=== PATIENT | male | born 1980 | race Caucasian/White ===

== ENCOUNTER → 2017-11-23 13:35 | Outpatient (CLI) | payer MEDICAID, SELFPAY ==
--- NOTE | 2017-11-23 13:46 | CT_ITS ---
CT abdomen pelvis wo con INDICATION: Vomiting. Right flank pain. Hematuria. 37-year-old ITS.REASON: HEMATURIA ORDERING PHYSICIAN: Naila Sparrow PATIENT AGE: 37 years COMPARISON: CT abdomen 12/25/2016 & to 412 PROCEDURE: Oral Contrast: None IV Contrast: TECHNIQUE: Axial images obtained with sagittal and coronal reformats. All CT scans at the facility use one or more dose reduction, viz: automated exposure control, ma/kV adjustment per patient size (including targeted exams where dose is matched to indication, i.e. head), or iterative reconstruction technique. FINDINGS: Lung bases clear. Heart normal size. Abdomen/pelvis. Lack of oral and IV contrast decreases sensitivity. Liver & spleen unremarkable on these noncontrast images. Gallbladder no gallstones. GB is Contracted with upper mild wall thickening likely due to its contracted state. Kidneys. No urinary tract calculi nor obstruction. GI tract Stomach. Distended Food filled stomach stomach presumably recent meal. Duodenal loop and small bowel appear normal caliber with moderate fluid. No wall thickening. Slight increased gas at the distal small bowel but overall WNL. Terminal ileum appears normal. Appendix difficult to visualize but I believe is seen on axial slice 69, coronal 35. Contains gas and no significant dilatation. There is some stranding in the region of the appendix but this may be due to other features overall no strong evidence of appendicitis. Lyndsay be clinical concern regarding such follow-up CT with oral and IV contrast suggested. There is mild diffuse fat wall thickening at the descending colon associated is contracted state can reflect some mild chronic inflammation nonspecific. Prostate moderate size 4.2 cm. Slightly generous vessels along pelvic sidewall but no significant adenopathy. No retroperitoneal nor mesenteric adenopathy. No free fluid. No free air. Osseous structures appear satisfactory slight narrowing L5/S1 L4/5 disc. ... IMPRESSION...... . No acute findings abdomen pelvis. Moderately distended food filled stomach. Presumably reflects recent meal. Small bowel unremarkable Large bowel.: Moderate stool throughout the right & transverse colon. Mild fatty wall thickening at descending colon & sigmoid. Of this is a nonspecific feature but can be seen with chronic distention mild mild. Lack of distention also contributes to this appearance No appendicitis evident. Note comments in text
== END ==
PROVIDERS: PCP Family Medicine; Visit Provider Nurse Practitioner
DX: R31.9 Hematuria, unspecified (principal)
CPT/HCPCS: 74176

== ENCOUNTER 2017-12-05 08:48 | Outpatient (CLI) | payer MEDICAID, SELFPAY ==
[2017-12-05 09:10] VITALS: BP 120/76; PULSE 62; RESP 18; BMI 23.8
--- NOTE | 2017-12-05 10:12 | PC.NURSE ---
0850: Administered patient's own factor 8
== END 2017-12-05 09:10 | disposition home or self-care (01) ==
LOC: INF 08:49
PROVIDERS: PCP Family Medicine; Visit Provider Nurse Practitioner Family
DX: D66 Hereditary factor VIII deficiency (principal)
CPT/HCPCS: G0463

== ENCOUNTER 2019-10-26 20:28 | Emergency (ER) | payer MEDICARE, MEDICAID, SELFPAY ==
[2019-10-26 21:02] VITALS: BP 115/86; PULSE 63; RESP 14; TEMP 36.7; O2SAT 98; BMI 21.9
--- NOTE | 2019-10-26 21:08 | HMH.EDUTC ---
[facility] [place] Clinical Impression: Sebaceous cyst Disposition: Home, Self-Care Condition on Discharge: Good Instructions: Boil Prescriptions: Sulfamethoxazole/Trimethoprim [Bactrim DS tablet] 1 each PO BID 10 Days #20 tab Prescription Printed Referrals: PCP,Hilary [Primary Care Provider] - Koby Tuttle MD [Staff Physician] - Time of Disposition: 21:14 Medical Decision Making - Jeffery Inquiry Pt receiving controlled substance: No Vital Signs: 10/26/19 21:02 Temperature 98.1 F Temperature Source Oral Pulse Rate [Radial] 63 Respiratory Rate 14 Blood Pressure [Right Arm] 115/86 Blood Pressure Mean [Right Arm] 95 Blood Pressure Source [Right Arm] Automatic Cuff Blood Pressure Position [Right Arm] Sitting 02 Sat by Pulse Oximetry 98 Oxygen Delivery Method Room Air [facility] [place] - General Chief complaint: Urgent Treatment Center Stated complaint: Bump on head Time Seen by Provider: 10/26/19 21:08 Mode of Arrival: Ambulatory Source of Information: Patient Limitations: No Limitations Description of Symptoms (Recalled from Triage Doc. by RN): sore on top of head for 3 days HEENT Symptoms (Recalled from RN notes): No Resp Symptoms (Recalled from RN notes): No Skin Symptoms (Recalled from RN notes): Yes MS Symptoms (Recalled from RN notes): No Functional Status (Recalled from RN notes): wnl - History of Present Illness Provider Complaint: 39 yr old male presents for boil to top of head for three days. pt states girlfriend pressed on it and got some pus out and not it has become sore. - Related Data Previous Rx's Medication Instructions Recorded fluoxetine 20 mg capsule 20 mg PO DAILY #30 cap 09/19/19 trazodone 50 mg tablet 50 mg PO QHS PRN #30 tab 09/19/19 Sulfamethoxazole/Trimethoprim 1 each PO BID 10 Days #20 tab 10/26/19 [Bactrim DS tablet] Allergies Allergy/AdvReac Type Severity Reaction Status Date / Time clarithromycin [From BIAXIN] Allergy Intermediate I-RASH Verified 08/22/19 15:01 aspirin [ASPIRIN] Allergy Unknown Verified 08/22/19 15:01 Penicillins [PENICILLINS] Allergy Unknown Verified 08/22/19 15:01 - Worker's Comp Is this a Worker's Comp case?: No [facility] History - Hepatitis A Screen Drug use history?: No High risk sexual behaviors?: No History of sexually transmitted infection?: No Currently employed?: No Childcare worker?: No Do you have indoor plumbing?: Yes Do you have electricity?: Yes Attestation statement:: This patient has been screened for Hepatitis A risk factors. I have reviewed the patient's past medical history: Yes Medical History: Denies:: Cancer, Diabetes Mellitus Type 1, Diabetes Mellitus Type 2, MRSA Amputation: No - Social History Smoking Status: Never smoker Alcohol Intake: never Alcohol Intake Frequency:: 3 or more drinks per day Substance Use Type: marijuana Occupational Status: other Housing: house Comment: -he will drink 4-6 shots of vodka when he wants to drink. -they have $0.50 shots and he will get a few dollars worth. -he sips on them. -he will get tipsy; not drunk ROS Obtained: Yes Systems reviewed as appropriate & no additional complaints - Constitutional Constitutional: Reports system reviewed and no additional complaints, except as docu, Denies fever(s) - Eyes Eyes: Reports system reviewed and no additional complaints, except as docu, Denies blurry vision - ENT Ears, Nose, Mouth, and Throat: Reports system reviewed and no additional complaints, except as docu, Denies nasal congestion, Denies sore throat - Cardiovascular Cardiovascular: Reports system reviewed and no additional complaints, except as docu, Denies chest pain - Respiratory Respiratory: Yes system reviewed and no additional complaints, except as docu, No change in phlegm color - Gastrointestinal Gastrointestingal: Reports: system reviewed and no additional complaints, except as docu. Denies: nausea, vomiting - Genitourinary Male Genitourinary: Reports
[2019-10-26 21:30] VITALS: BP 115/86; PULSE 63; RESP 14; TEMP 36.7; O2SAT 98
--- NOTE | 2019-10-29 15:38 | PC.NURSE ---
NOTIFICATION FROM LAB: WOUND CULTURE MRSA+. PATIENT GIVEN BACTRIM WHICH MRSA IS SUSCEPTIBLE TO PER MICRO REPORT. IRAIDA HERNANDEZ APRN NOTIFIED OF RESULT
== END 2019-10-26 21:32 | disposition home or self-care (01) ==
PROVIDERS: Emergency Provider Nurse Practitioner Family
DX: L72.3 Sebaceous cyst (principal); Z88.0 Allergy status to penicillin
CPT/HCPCS: G0463; 87070; 87077; 87186; 87205; 99201

== ENCOUNTER 2019-12-24 11:24 | Emergency (ER) | payer MEDICARE, MEDICAID, SELFPAY ==
[2019-12-24 11:42] VITALS: BP 128/80; PULSE 72; RESP 20; TEMP 36.8; O2SAT 99; BMI 22.2
--- NOTE | 2019-12-24 11:50 | HMH.EDUTC ---
[facility] [place] Disposition Clinical Impression: Hemophilia Low back pain Qualifiers: Chronicity: acute Back pain laterality: left Sciatica presence: with sciatica Sciatica laterality: sciatica of left side Qualified Code(s): M54.42 - Lumbago with sciatica, left side Disposition: Home, Self-Care Condition on Discharge: Good Additional Instructions: Go home and rest. It would be best if you rested tomorrow too. No heavy lifting. No twisting. Take the oral medications as directed. The muscle relaxer (robaxin) will make you drowsy, so don't drive or operate heavy machinery after taking it. Follow up with your regular doctor. GO TO THE ER FOR ANY WORSENING SYMPTOMS OR CONCERN, ESPECIALLY BOWEL OR BLADDER ISSUES, SADDLE AREA NUMBNESS, FEVER, ETC I discussed the need for him to follow up closely due to his history of hemophilia. He agrees. Prescriptions: predniSONE [Prednisone 20mg Tab] 20 mg PO BID 4 Days #8 tab Transmission Status: Received by [facility] Methocarbamol [Robaxin 500mg Tab] 500 mg PO BIDP PRN #30 tab PRN Reason: Muscle Spasm Transmission Status: Received by [facility] Referrals: Papito Baez MD [Primary Care Provider] - Time of Disposition: 12:53 Medical Decision Making - Medical Records Medical records reviewed: No: I reviewed the patient's medical records. - Jeffery Inquiry Pt receiving controlled substance: No Vital Signs: 12/24/19 11:42 12/24/19 12:57 Temperature 98.2 F 98.2 F Temperature Source Oral Pulse Rate 72 Pulse Rate [Right Brachial] 72 Respiratory Rate 20 20 Blood Pressure 128/80 Blood Pressure [Right Arm] 128/80 Blood Pressure Mean [Right Arm] 96 Blood Pressure Source [Right Arm] Automatic Cuff Blood Pressure Position [Right Arm] Sitting 02 Sat by Pulse Oximetry 99 Oxygen Delivery Method Room Air - Lab Data Lab results reviewed: Yes: I reviewed the patient's lab results. Lab Results 12/24/19 11:56: Urine Color Yellow, Urine Appearance Clear, Urine pH 5.5, Ur Specific Newton 1.025, Urine Protein Negative, Urine Glucose (UA) Negative, Urine Ketones Negative, Urine Blood 1+, Urine Nitrate Negative, Urine Bilirubin Negative, Urine Urobilinogen 0.2, Ur Leukocyte Esterase Negative Medical Decision Narrative: i discussed this case with the ER physician. [facility] [place] HPI - General Stated complaint: lower back pain Time Seen by Provider: 12/24/19 11:50 Mode of Arrival: Ambulatory Source of Information: Patient Limitations: No Limitations Description of Symptoms (Recalled from Triage Doc. by RN): PATIENT C/O RIGHT LOWER BACK PAIN SINCE MONDAY. NO KNOWN INJURY HEENT Symptoms (Recalled from RN notes): No Resp Symptoms (Recalled from RN notes): No Skin Symptoms (Recalled from RN notes): No MS Symptoms (Recalled from RN notes): Yes Functional Status (Recalled from RN notes): WNL - History of Present Illness Provider Complaint: He is here with a complaint of low back pain. He states that it began on Monday (3 days ago). He has been taking tylenol for it with not much relief. He has a history of hemophilia. He denies any known injury. - Related Data Previous Rx's Medication Instructions Recorded fluoxetine 20 mg capsule 20 mg PO DAILY #30 cap 12/06/19 trazodone 100 mg tablet 100 mg PO QHS #30 tab 12/06/19 Methocarbamol [Robaxin 500mg Tab] 500 mg PO BIDP PRN #30 tab 12/24/19 predniSONE [Prednisone 20mg 20 mg PO BID 4 Days #8 tab 12/24/19 Tab] Allergies Allergy/AdvReac Type Severity Reaction Status Date / Time clarithromycin [From BIAXIN] Allergy Intermediate I-RASH Verified 11/01/19 13:06 aspirin [ASPIRIN] Allergy Unknown Verified 11/01/19 13:06 Penicillins [PENICILLINS] Allergy Unknown Verified 11/01/19 13:06 - Worker's Comp Is this a Worker's Comp case?: No [facility] History - Hepatitis A Screen Drug use history?: No High risk sexual behaviors?: No History of sexually transmitted infection?: No Mao
[2019-12-24 12:14] LABS: Apearance,Urine Clear (Clear); Bilirubin,Urine Negative (Negative); Blood, Urine 1+ (Negative); Color,Urine Yellow (Yellow); Glucose,Urine (UA) Negative (Negative); Ketones,Urine Negative (Negative); PH,Urine 5.5 (5.0-8.5); Protein,Urine Negative (Negative); Specific Gravity, Urine 1.025 (1.005-1.030); UTC Leukocyte Esterase,Urine Negative (Negative); UTC Nitrate,Urine Negative (Negative); Urobilinogen,Urine 0.2 EU/dl (0.2)
[2019-12-24 12:57] VITALS: BP 128/80; PULSE 72; RESP 20; TEMP 36.8; O2SAT 99
== END 2019-12-24 13:00 | disposition home or self-care (01) ==
PROVIDERS: Emergency Provider Nurse Practitioner Family; PCP Family Medicine
DX: M54.42 Lumbago with sciatica, left side (principal); D66 Hereditary factor VIII deficiency; F41.8 Other specified anxiety disorders; J45.909 Unspecified asthma, uncomplicated; Z87.442 Personal history of urinary calculi; Z88.0 Allergy status to penicillin
CPT/HCPCS: 81003; 99201

== ENCOUNTER 2020-07-20 09:47 | Emergency (ER) | payer MEDICARE, MEDICAID, SELFPAY ==
[2020-07-20 10:01] VITALS: BP 127/87; PULSE 61; RESP 14; TEMP 36.4; O2SAT 97; BMI 24.5
--- NOTE | 2020-07-20 10:31 | HMH.EDUTC ---
[facility] [place] Clinical Impression: Otitis media Qualifiers: Otitis media type: suppurative Chronicity: acute Laterality: right Recurrence: non-recurrent Spontaneous tympanic membrane rupture: without spontaneous rupture Qualified Code(s): H66.001 - Acute suppurative otitis media without spontaneous rupture of ear drum, right ear Sinusitis Qualifiers: Sinusitis location: unspecified location Chronicity: acute Recurrence: non-recurrent Qualified Code(s): J01.90 - Acute sinusitis, unspecified Disposition: Home, Self-Care Condition on Discharge: Good Instructions: Middle Ear Infection, DI for Sinusitis Additional Instructions: Drink plenty of fluids. Take tylenol or ibuprofen for pain or fever. Take the medications as directed. Follow up with your regular doctor. GO TO THE ER FOR ANY WORSENING SYMPTOMS Prescriptions: predniSONE [Deltasone 10mg tablet] 10 mg PO BID 3 Days #6 tab Transmission Status: Received by [email or web address] Cefdinir [Omnicef 300mg Capsule] 300 mg PO BID #20 cap Transmission Status: Received by [email or web address] Referrals: Papito Baez MD [Primary Care Provider] - Time of Disposition: 10:37 Medical Decision Making - Medical Records Medical records reviewed: No: I reviewed the patient's medical records. - Jeffery Inquiry Pt receiving controlled substance: No Vital Signs: 07/20/20 10:01 07/20/20 10:40 Temperature 97.6 F 98 F Temperature Source Oral Pulse Rate 65 Pulse Rate [Right] 61 Respiratory Rate 14 16 Blood Pressure 130/81 Blood Pressure [Right Arm] 127/87 Blood Pressure Mean [Right Arm] 100 Blood Pressure Source [Right Arm] Automatic Cuff Blood Pressure Position [Right Arm] Sitting 02 Sat by Pulse Oximetry 97 [facility] [place] - General Stated complaint: rt eye and ear pain Time Seen by Provider: 07/20/20 10:31 Mode of Arrival: Ambulatory Source of Information: Patient Limitations: No Limitations Description of Symptoms (Recalled from Triage Doc. by RN): pt started out having pressure behind his R eye a few days ago, now he has pressure in his R ear too. HEENT Symptoms (Recalled from RN notes): Yes (pressure behind R eye and ear) Resp Symptoms (Recalled from RN notes): No Skin Symptoms (Recalled from RN notes): No MS Symptoms (Recalled from RN notes): No Functional Status (Recalled from RN notes): na - History of Present Illness Provider Complaint: He states that he has had right ear pain and right sided facial pressure for alicia past 2 days. He believes he is getting a sinus and ear infection. - Related Data Previous Rx's Medication Instructions Recorded Methocarbamol [Robaxin 500mg Tab] 500 mg PO BIDP PRN #30 tab 12/24/19 predniSONE [Prednisone 20mg 20 mg PO BID 4 Days #8 tab 12/24/19 Tab] Cefdinir [Omnicef 300mg Capsule] 300 mg PO BID #20 cap 07/20/20 fluoxetine 20 mg capsule 20 mg PO DAILY #90 cap 07/20/20 predniSONE [Deltasone 10mg tablet] 10 mg PO BID 3 Days #6 tab 07/20/20 trazodone 100 mg tablet 100 mg PO QHS #90 tab 07/20/20 Allergies Allergy/AdvReac Type Severity Reaction Status Date / Time clarithromycin [From BIAXIN] Allergy Intermediate I-RASH Verified 07/20/20 11:01 aspirin [ASPIRIN] Allergy Unknown Verified 07/20/20 11:01 Penicillins [PENICILLINS] Allergy Unknown Verified 07/20/20 11:01 - Worker's Comp Is this a Worker's Comp case?: No [facility] History - Hepatitis A Screen Drug use history?: No High risk sexual behaviors?: No History of sexually transmitted infection?: No Currently employed?: No Childcare worker?: No Do you have indoor plumbing?: Yes Do you have electricity?: Yes Attestation statement:: This patient has been screened for Hepatitis A risk factors. I have reviewed the patient's past medical history: Yes Medical History: Reports:: Anxiety, Asthma, Depression, Kidney Stones Denies:: Cancer, Diabetes Mellitus Type 1, Diabetes Mellitus Type 2, MRSA Other Medical History: Reports:
[2020-07-20 10:40] VITALS: BP 130/81; PULSE 65; RESP 16; TEMP 36.6
== END 2020-07-20 10:43 | disposition home or self-care (01) ==
PROVIDERS: Emergency Provider Nurse Practitioner Family; PCP Family Medicine
DX: H66.001 Acute suppurative otitis media without spontaneous rupture of ear drum, right ear (principal); J01.90 Acute sinusitis, unspecified; F41.8 Other specified anxiety disorders; Z87.442 Personal history of urinary calculi
CPT/HCPCS: G0463; 99202

== ENCOUNTER 2020-08-15 15:22 | Emergency (ER) | payer MEDICARE, MEDICAID, SELFPAY ==
[2020-08-15 15:25] VITALS: BP 123/79; PULSE 71; RESP 19; TEMP 36.8; O2SAT 98; BMI 24.5
--- NOTE | 2020-08-15 15:41 | HMH.EDUTC ---
[facility] [place] Dis[place] Clinical Impression: Nail fungal infection Disposition: Home, Self-Care Condition on Discharge: Good Instructions: Onychomycosis Additional Instructions: follow up with podiatry keep feet dry Prescriptions: terbinafine HCL [Lamisil 1% cream 12gm tube] 12 gm TP BID 14 Days #1 tube Prescription Printed Referrals: Provider,Referral, [Primary Care Provider] - Medical Decision Making - Jeffery Inquiry Pt receiving controlled substance: No [facility] [place] HPI - General Chief complaint: Urgent Treatment Center Stated complaint: toenail fungus Time Seen by Provider: 08/15/20 15:41 Mode of Arrival: Ambulatory Source of Information: Patient Limitations: No Limitations - History of Present Illness Provider Complaint: 39 yr old male presnts for toe nail funus to left great toefor a few weeks. - Related Data Previous Rx's Medication Instructions Recorded terbinafine HCL [Lamisil 1% cream 12 gm TP BID 14 Days #1 tube 08/15/20 12gm tube] Allergies Allergy/AdvReac Type Severity Reaction Status Date / Time clarithromycin [From BIAXIN] Allergy Intermediate I-RASH Verified 07/20/20 11:01 aspirin [ASPIRIN] Allergy Unknown Verified 07/20/20 11:01 Penicillins [PENICILLINS] Allergy Unknown Verified 07/20/20 11:01 [facility] History - Hepatitis A Screen Attestation statement:: This patient has been screened for Hepatitis A risk factors. I have reviewed the patient's past medical history: Yes Medical History: Reports:: Anxiety, Asthma, Depression, Kidney Stones Denies:: Cancer, Diabetes Mellitus Type 1, Diabetes Mellitus Type 2, MRSA Other Medical History: Reports: Arthritis, Sinus Problems Other Surgeries: Yes: Other (B elbows and Ankles - joints cleaned) Amputation: No - Social History Smoking Status: Never smoker Alcohol Intake: never Alcohol Intake Frequency:: 3 or more drinks per day Substance Use Type: marijuana Occupational Status: other Housing: house Comment: -he will drink 4-6 shots of vodka when he wants to drink. -they have $0.50 shots and he will get a few dollars worth. -he sips on them. -he will get tipsy; not drunk - Psychiatric History Pschychiatric History:: Reports:: Anxiety, Depression Family Hx:: Asthma, Cancer, Bleeding Disorder, Hypertension ROS Obtained: Yes Systems reviewed as appropriate & no additional complaints - Constitutional Constitutional: Reports system reviewed and no additional complaints, except as docu, Denies body ache - Eyes Eyes: Reports system reviewed and no additional complaints, except as docu, Denies blurry vision - ENT Ears, Nose, Mouth, and Throat: Reports system reviewed and no additional complaints, except as docu, Denies sore throat - Cardiovascular Cardiovascular: Reports system reviewed and no additional complaints, except as docu, Denies chest pain - Respiratory Respiratory: Reports system reviewed and no additional complaints, except as docu, Denies cough - Gastrointestinal Gastrointestingal: Reports: system reviewed and no additional complaints, except as docu. Denies: belching - Genitourinary Male Genitourinary: Reports system reviewed and no additional complaints, except as docu - Musculoskeletal Musculoskeletal: Reports system reviewed and no additional complaints, except as docu, Denies joint pain - Integumentary/Breasts Skin/Breast: Reports system reviewed and no additional complaints, except as docu, Reports as per HPI, Reports nail changes, Denies rash - Neurologic Neurologic: Reports system reviewed and no additional complaints, except as docu, Denies dizziness - Endocrine Endocrine: Reports system reviewed and no additional complaints, except as docu, Denies fatigue - Hematologic/Lymphatic Henatologic/Lymphatic: Reports system reviewed and no additional complaints, except as docu, Denies easy bruising - Allergic/Immunologic Allergic/Immunologic: Reports system reviewed and no additional complaints, except as d
[2020-08-15 15:47] VITALS: BP 123/79; PULSE 71; RESP 19; TEMP 36.8; O2SAT 98
== END 2020-08-15 15:53 | disposition home or self-care (01) ==
PROVIDERS: Emergency Provider Nurse Practitioner Family
DX: B35.1 Tinea unguium (principal); Z88.0 Allergy status to penicillin
CPT/HCPCS: G0463; 99202

== ENCOUNTER → 2020-09-14 15:25 | Outpatient (CLI) | payer MEDICARE, MEDICAID, SELFPAY ==
--- NOTE | 2020-09-14 15:27 | CA_ITS ---
APPROVED REPORT EXAM: Comprehensive 2D, Doppler, and color-flow Echocardiogram Front Office Specialist: Madison Wolfe, RCS, RVS Ht: 6 ft 3 in Wt: 197lbs BSA: 2.18 BP: 143/85 mmHg Indications: Family Hx- connective tissue disorder unspecified, Cp, SOB, Long spindally habitus 2D Dimensions Aortic Root 3.77 cm LA Volume 33.80 mL Left Atrium 2.65 cm LA Volume Index 15.50 mL/m2 (M/F) 16-34 LVOT 1.95 cm (M/F) 1.5-2.5 Ascending Aorta 2.94 cm M-Mode Dimensions RVDd 2.06 cm (0.9-2.6) LA Diam 3.46 cm (1.9-4.0) LVDd 4.82 cm (3.5-5.7) Ao Diam 3.97 cm (2.0-3.7) LVDs 2.93 cm (3.5-5.7) IVSd 0.96 cm (0.6-1.1) PWd 0.90 cm (0.6-1.1) EF (Teich) 69.60% EPSs 0.54 cm FS 39.20% EDV (Teich) 108.60 mL TAPSE 2.51 (<1.7) ESV (Teich) 33.00 mL LV Diastology E Decel Time 237.00 (160-240 msec) E/A Ratio 1.44 MED E' 9.70 (< 7 cm/sec) MED A' 7.30 cm/s E'/MED E' Ratio 7.96 (>14) LAT E' 13.50 (<10 cm/sec) LAT A' 11.00 cm/s E/LAT E' Ratio 5.72 (>14) Aortic Valve AoV Peak Sudeep. 131.00 (50-130 cm/s) AI PHT 456.00 ms AO Peak GR. 6.80 mmHg AO Mean GR. 3.40 (<5 mmHg) AO VTI 24.76 (18-25 cm) Mitral Valve MV A Velocity 54.00 (40-130 cm/s) E/A Ratio 1.44 MV Decel. Time 237.00 (160-240 ms) Pulmonary Valve PV Peak Velocity 91.00 (50-150 cm/s) Tricuspid Valve TR P. Velocity 212.00 cm/s RAP Estimate 10.00 mmHg RVSP 28.00 mmHg Left Ventricle Left atrium is normal size, left ventricle is normal size, there is no concentric left ventricular hypertrophy, visually estimated ejection fraction 55% with no regional wall motion abnormality, diastolic parameters are within normal range. Right Ventricle Right atrium and right ventricle are normal size and contractility. Aortic Valve Aortic valve is minimally thickened and fibrosed, there is no aortic stenosis, there is mild aortic insufficiency. Mitral Valve Mitral valve grossly normal, there is trace mitral regurgitation. Tricuspid Valve Tricuspid grossly normal, there is trace tricuspid regurgitation, tricuspid regurgitation jet velocity is inadequate for calculation of the right ventricular systolic pressure. Pulmonic Valve Pulmonic valve is poorly visualized Great Vessels Aortic root is mildly enlarged measuring 3.8 cm, a CT scan of the chest with contrast is recommended to exclude presence of thoracic aneurysm. Pericardium No significant pericardial effusion noted. Conclusion 1. Normal left ventricular size, preserved left ventricular systolic function, visually estimated ejection fraction 55% with no regional wall motion abnormality, diastolic parameters are within normal range. 2. Mildly enlarged aortic root measuring 3.8 cm, aortic valve is minimally thickened and fibrosed, there is mild aortic insufficiency, a CT scan of the chest with contrast is recommended to exclude presence of thoracic aneurysm. 3. No significant pericardial effusion noted. Electronically signed by : Javier Conteh, 09/14/2020 21:47:21
== END ==
PROVIDERS: PCP Family Medicine; Visit Provider Family Medicine
DX: Z82.69 Family history of other diseases of the musculoskeletal system and connective tissue (principal); R07.9 Chest pain, unspecified; R06.02 Shortness of breath
CPT/HCPCS: 93306

== ENCOUNTER → 2020-09-30 13:36 | Outpatient (CLI) | payer MEDICARE, MEDICAID, SELFPAY ==
--- NOTE | 2020-09-30 13:39 | CT_ITS ---
PROCEDURE: CT CHEST W CON CLINCAL INDICATION: AORTIC ROOT ENLARGEMENT Seen on echo COMPARISON: CT CTAC CTA-CHEST from 10/13/2016 TECHNIQUE: IV Contrast: 75ml Isovue 370 Axial images obtained with sagittal and coronal reformats. All CT scans at the facility use one or more dose reduction, viz: automated exposure control, ma/kV adjustment per patient size (including targeted exams where dose is matched to indication, i.e. head), or iterative reconstruction technique. FINDINGS: HEART AND MEDIASTINAL STRUCTURES: No mediastinal or hilar mass. The supravalvular portion of the aorta measures 3.5 cm in diameter. The proximal ascending aorta is 3.4 cm. There is no evidence of aortic dissection. No central pulmonary embolus apparent. No coronary artery calcification identified. LUNGS AND PLEURAL SPACES: Unremarkable. BONY STRUCTURES: No acute bony abnormalities apparent. UPPER ABDOMEN: Unremarkable. ADDITIONAL FINDINGS: No other significant abnormalities. IMPRESSION: Negative CT chest with contrast. No evidence of aortic aneurysm. Dictated by: Kehinde Mead MD 10/01/2020 07:21 Kehinde Mead MD in [place] 10/01/2020 07:21
== END ==
PROVIDERS: PCP Family Medicine; Visit Provider Family Medicine
DX: I77.89 Other specified disorders of arteries and arterioles (principal)
CPT/HCPCS: 71260; Q9967

== ENCOUNTER 2020-10-16 11:00 | Outpatient (RCR) | payer MEDICARE, MEDICAID, SELFPAY | END 2020-10-16 11:05 | disposition home or self-care (01) | LOC: PT 11:00 | PROVIDERS: PCP Family Medicine; Visit Provider Nurse Practitioner Family | DX: M25.572 Pain in left ankle and joints of left foot (principal); D66 Hereditary factor VIII deficiency | CPT/HCPCS: 97110; 97112; 97140; 97163; 97164; 97530 ==

== ENCOUNTER 2020-10-20 06:15 | Emergency (ER) | payer MEDICARE, MEDICAID, SELFPAY ==
[2020-10-20 06:16] VITALS: BP 132/80; PULSE 64; RESP 16; TEMP 36.6; O2SAT 99; BMI 23.8
--- NOTE | 2020-10-20 06:33 | HMH.EDBACK ---
ED Disposition Clinical Impression: Low back strain Qualifiers: Encounter type: initial encounter Qualified Code(s): S39.012A - Strain of muscle, fascia and tendon of lower back, initial encounter Disposition: Home, Self-Care Condition on Discharge: Good Instructions: DI for Low Back Pain Additional Instructions: Recommend regular Tylenol and ibuprofen/aleve for pain alternating ice and heat therapy and consider using lidocaine patches. Recommend the Flexeril for back spasms. Return to the ED for any new or worsening symptoms including inability to walk, difficulty urinating, weakness in your legs. Prescriptions: Cyclobenzaprine HCl [Flexeril 10mg tablet] 10 mg PO Q8HP PRN 5 Days #15 tab PRN Reason: Muscle Spasm Transmission Status: Received by [facility] Referrals: Papito Baez MD [Primary Care Provider] - - Critical Care Critical Care Time: No Attestation: On 10/20/20, the high probability of a clinically significant, sudden or life threatening deterioration of the following system(s) required my full and direct attention, intervention and personal management. The time I documented below is in addition to time spent performing reported procedures but includes the following listed in this critical care notation. Medical Decision Making - Medical Records Medical records reviewed: Yes: I reviewed the patient's medical records. - Jeffery Inquiry Pt receiving controlled substance: No Vital Signs: 10/20/20 06:16 10/20/20 06:34 Temperature 97.9 F 97.9 F Temperature Source Oral Pulse Rate 64 Pulse Rate [Right] 64 Respiratory Rate 16 16 Blood Pressure 132/80 Blood Pressure [Right Arm] 132/80 Blood Pressure Mean [Right Arm] 97 02 Sat by Pulse Oximetry 99 - Lab Data Lab Results 10/20/20 06:27: Urine Color Dk yellow, Urine Appearance Clear, Urine pH 5.0, Ur Specific [place] >= 1.030, Urine Protein Negative, Urine Glucose (UA) Negative, Urine Ketones Negative, Urine Blood 1+, Urine Nitrate Negative, Urine Bilirubin Negative, Urine Urobilinogen 0.2, Ur Leukocyte Esterase Negative, Urine RBC Occasional, Urine WBC Occasional, Ur Squamous Epith Cells Occasional, Urine Bacteria None Orders (Tests/Meds): ED MEDICATIONS Discontinued Medications Generic Name Dose Route Start Last Admin Trade Name Freq PRN Reason Stop Dose Admin Ketorolac Tromethamine 30 mg 10/20/20 06:30 10/20/20 06:33 Ketorolac 30mg/Ml Vial IM 10/20/20 06:31 30 mg ONCE ONE Administration Medical Decision Narrative: 40-year-old male who presents with back spasms and lateral back pain that is an acute exacerbation of his chronic lower back pain. Patient has never had surgery on his back, has no midline tenderness, has no focal neurologic findings or symptoms concerning for compressive etiology. Patient was given 30 mg IM Toradol and will be given a prescription for Flexeril and discharged with conservative management instructions in good condition. Back Pain HPI - General Chief Complaint: Back Pain/Injury Stated Complaint: back pain Time Seen by Provider: 10/20/20 06:33 Mode of Arrival: Ambulatory Limitations: No Limitations Description of Symptoms (Recalled from ER Triage Doc. by RN): pt c/o lower back pain that radiates to legs - History of Present Illness HPI Narrative: 40-year-old male who presents with acute exacerbation of his chronic back pain having bilateral pain over the lateral aspect of his back no midline pain and occasionally is having shooting pain down his legs. Denies numbness or weakness to extremity. Denies saddle anesthesia and urinary retention or incontinence. No recent trauma. Patient is used icy hot with minimal relief. - Related Data Previous Rx's Medication Instructions Recorded terbinafine HCL [Lamisil 1% cream 12 gm TP BID 14 Days #1 tube 08/15/20 12gm tube] Cyclobenzaprine HCl [Flexeril 10mg 10 mg PO Q8HP PRN 5 Days #15 tab 10/20/20 tablet]
[2020-10-20 06:34] VITALS: BP 132/80; PULSE 64; RESP 16; TEMP 36.6; O2SAT 99
[2020-10-20 06:50] LABS: Microscopic, Urine URINE MICROSCOPIC (MICROSCOPIC)
[2020-10-20 06:52] LABS: Appearance,Urine CLEAR (Clear); Bilirubin,Urine Negative (Negative); Blood, Urine 1+ (Negative); Color,Urine DK YELLOW (Yellow); Glucose,Urine (UA) Negative (Negative); Ketones,Urine Negative (Negative); Leukocyte Esterase,Urine Negative (Negative); Nitrate,Urine Negative (Negative); Protein,Urine Negative (Negative); Specific Gravity, Urine >= 1.030 (1.005-1.030); Urobilinogen,Urine 0.2 EU/dl (0.2)
[2020-10-20 07:02] LABS: Squamous Epithelial Cell,Urine Occasional #/hpf (0-5); WBC,Urine Occasional #/hpf (0-3)
[2020-10-20 07:03] LABS: RBC,Urine Occasional #/hpf (0-3)
== END 2020-10-20 06:50 | disposition home or self-care (01) ==
PROVIDERS: Emergency Provider Student in an Organized Health Care Education/Training Program; PCP Family Medicine
DX: S39.012A Strain of muscle, fascia and tendon of lower back, initial encounter (principal); F41.8 Other specified anxiety disorders; J45.909 Unspecified asthma, uncomplicated; Z87.442 Personal history of urinary calculi
CPT/HCPCS: 81001; 96372; 99282

== ENCOUNTER 2021-03-30 10:00 | Emergency (ER) | payer MEDICARE, MEDICAID, SELFPAY ==
[2021-03-30 11:43] VITALS: BP 155/92; PULSE 70; RESP 19; TEMP 36.9; O2SAT 99; BMI 24.9
--- NOTE | 2021-03-30 11:47 | HMH.EDUTC ---
[facility] [place] Disposition Clinical Impression: Strep throat Disposition: Home, Self-Care Condition on Discharge: Good Instructions: Strep Throat, DI for Strep Throat, Cefdinir Additional Instructions: *Monitor Temp, Over the counter Motrin or Tylenol as directed/as needed Tylenol every 4 hours and Motrin every 6 hours (as long as your family doctor has told you that you can take it) for fever or pain. and straight to ER if unable to lower temp less than 101.0 after medication given *Warm salt water gargles may help to soothe the throat *Throat Lozenges *Warm fluids like tea with honey may help to soothe the throat *Sleep elevated If you did not take Penicillin shot or was unable to, start taking antibiotic immediately and make sure that you take it for the FULL length of time although you should start to feel better in 24-48 hours *change toothbrush and toothpaste 24-48 hours after starting to take antibiotics so you do not reinfect yourself Monitor Temp. Tylenol and/or Ibuprofen as needed. ER if fever is no less than 101 despite alternating Tylenol and Ibuprofen * Encourage fluids, water, Gatorade, powerade, pedialyte if infant/toddler/or child *Cold fluids, popsicles and ice cream may feel good on his throat Humidifier/Vaporizer Follow up IMMEDIATELY for new or worsening symptoms or no Noticeable improvement over the next 48-72 hours. 911 for difficulty breathing or swallowing Prescriptions: Cefdinir [Omnicef 300mg Capsule] 300 mg PO BID #20 cap Transmission Status: Pending to [facility] Referrals: Papito Baez MD [Primary Care Provider] - As needed Time of Disposition: 11:57 Medical Decision Making - Jeffery Inquiry Pt receiving controlled substance: No Jeffery was queried for this patient: No Vital Signs: 03/30/21 11:43 Temperature 98.5 F Temperature Source Oral Pulse Rate [Right Radial] 70 Respiratory Rate 19 Blood Pressure [Right Arm] 155/92 H Blood Pressure Mean [Right Arm] 113 Blood Pressure Source [Right Arm] Automatic Cuff Blood Pressure Position [Right Arm] Sitting 02 Sat by Pulse Oximetry 99 Oxygen Delivery Method Room Air - Lab Data Lab results reviewed: Yes: I reviewed the patient's lab results. Lab Results 03/30/21 11:30: Strep Scn Rapid Clinic Positive A Medical Decision Narrative: patient state that he has taken Cefdinir in the past without complications or reactions [facility] [place] HPI - General Stated complaint: fever, SIDDIQUI Time Seen by Provider: 03/30/21 11:47 Mode of Arrival: Ambulatory Source of Information: Patient Limitations: No Limitations Description of Symptoms (Recalled from Triage Doc. by RN): C/O SIDDIQUI and low grade fever HEENT Symptoms (Recalled from RN notes): Yes (SIDDIQUI) Resp Symptoms (Recalled from RN notes): No Skin Symptoms (Recalled from RN notes): No MS Symptoms (Recalled from RN notes): No Functional Status (Recalled from RN notes): n/a - History of Present Illness Provider Complaint: Patient state that he had some vomiting yesterday but that is better but he has continued to have headache, low grade fever and scratchy like feeling in his throat States that today he was still not feeling well so he came in to get checked - Related Data Previous Rx's Medication Instructions Recorded terbinafine HCL [Lamisil 1% cream 12 gm TP BID 14 Days #1 tube 08/15/20 12gm tube] Cyclobenzaprine HCl [Flexeril 10mg 10 mg PO Q8HP PRN 5 Days #15 tab 10/20/20 tablet] Cefdinir [Omnicef 300mg Capsule] 300 mg PO BID #20 cap 03/30/21 Allergies Allergy/AdvReac Type Severity Reaction Status Date / Time clarithromycin [From BIAXIN] Allergy Intermediate I-RASH Verified 02/03/21 12:55 aspirin [ASPIRIN] Allergy Unknown Verified 02/03/21 12:55 Penicillins [PENICILLINS] Allergy Unknown Verified 02/03/21 12:55 - Worker's Comp Is this a Worker's Comp case?: No [facility] History - Hepatitis A Screen Drug use history?: No High risk sexual behaviors?: No History
[2021-03-30 11:54] LABS: UTC Strep Screen (Rapid) Positive (Negative)
[2021-03-30 12:00] VITALS: BP 155/92; PULSE 70; RESP 19; TEMP 36.9; O2SAT 99
== END 2021-03-30 12:01 | disposition home or self-care (01) ==
PROVIDERS: Emergency Provider Nurse Practitioner; PCP Family Medicine
DX: J02.0 Streptococcal pharyngitis (principal)
CPT/HCPCS: G0463; 87880; 99202

== ENCOUNTER 2021-08-08 18:17 | Emergency (ER) | payer MEDICARE, MEDICAID, SELFPAY ==
--- NOTE | 2021-08-08 18:36 | XR_ITS ---
PROCEDURE INFORMATION: Exam: XR Right Foot Exam date and time: 08/08/2021 6:38 PM Age: 40 years old Clinical indication: Injury or trauma; Other: Twisted ankle and foot in a hole in yard; Sprain or strain; Right; Patient HX: PT is hemophiliac; Additional info: Fall TECHNIQUE: Imaging protocol: XR Right foot. Views: 3 or more views. COMPARISON: No relevant prior studies available. FINDINGS: Bones/joints: Periarticular osteopenia. Subtle cortical irregularity involving the medial aspect of the navicular bone. Could not exclude fracture in this region. Soft tissues: Mild soft tissue swelling dorsal aspect of the forefoot. IMPRESSION: 1. Subtle cortical irregularity involving the medial aspect of the navicular bone. Could not exclude fracture in this region. 2. Soft tissue swelling dorsal aspect of the forefoot.
--- NOTE | 2021-08-08 18:39 | XR_ITS ---
PROCEDURE INFORMATION: Exam: XR Right Ankle Exam date and time: 08/08/2021 6:40 PM Age: 40 years old Clinical indication: Injury or trauma; Other: Twisted ankle and foot in hole in yard; Sprain or strain; Right; Patient HX: PT is hemophiliac TECHNIQUE: Imaging protocol: XR Right ankle. Views: 3 or more views. COMPARISON: CR XR FOOT RT MIN 3V 08/08/2021 6:38 PM FINDINGS: Bones/joints: Moderate to marked narrowing of the tibiotalar articulation. Subcortical cystic degenerative changes demonstrated. regions of increased density involving the talar dome. Could not exclude an underlying osteochondral lesion. No evidence of acute osseous injury. Remodeling of the distal tibia. Findings compatible with chronic post traumatic change. Soft tissues: Normal. IMPRESSION: 1. Regions of increased density involving the talar dome. Could not exclude an underlying osteochondral lesion. 2. No evidence of acute osseous injury. 3. 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
[2021-08-08 18:40] VITALS: BP 143/97; PULSE 76; RESP 19; TEMP 37.1; O2SAT 99; BMI 24.0
--- NOTE | 2021-08-08 19:23 | HMH.EDUTC ---
[facility] [place] Disposition Clinical Impression: Left foot pain, Pain of left great toe, Classical hemophilia Injury of left great toe Qualifiers: Encounter type: initial encounter Qualified Code(s): S99.922A - Unspecified injury of left foot, initial encounter Disposition: Home, Self-Care Condition on Discharge: Good Additional Instructions: Rest the extremity, apply ice for 15 minutes as tolerated three or four times per day, Elevate the extremity as tolerated while you are resting. Watch yourself for signs of bleeding inside the foot and follow up accordingly. Follow up with Dr. Cho or your second worker of choice. Make sure you take the disk with copies of the x-rays if you go to one not associated with this [facility]. I put in the referral to Dr. Cho but you need to call her office and schedule an appointment if you want to be seen there. Take tylenol for pain, or take whatever you normally take. Follow up with your regular doctor. GO TO THE ER FOR ANY WORSENING SYMPTOMS Referrals: Papito Baez MD [Primary Care Provider] - Guillermina Cho DPM [Staff Physician] - Time of Disposition: 19:27 Medical Decision Making - Medical Records Medical records reviewed: No: I reviewed the patient's medical records. - Jeffery Inquiry Pt receiving controlled substance: No Vital Signs: 08/08/21 18:40 08/08/21 19:39 Temperature 98.8 F 98.8 F Temperature Source Oral Pulse Rate 76 Pulse Rate [Left Radial] 76 Respiratory Rate 19 19 Blood Pressure 143/97 H Blood Pressure [Right Arm] 143/97 H Blood Pressure Mean [Right Arm] 112 02 Sat by Pulse Oximetry 99 - Radiology Data #1 Image(s): Foot/Toes Image Reviewed: Yes I reviewed the patient's radiology image, Yes I have reviewed radiologist's interpretation Preliminary Findings: Abnormal PROCEDURE INFORMATION: Exam: XR Right Foot Exam date and time: 08/08/2021 6:38 PM Age: 40 years old Clinical indication: Injury or trauma; Other: Twisted ankle and foot in a hole in yard; Sprain or strain; Right; Patient HX: PT is hemophiliac; Additional info: Fall TECHNIQUE: Imaging protocol: XR Right foot. Views: 3 or more views. COMPARISON: No relevant prior studies available. FINDINGS: Bones/joints: Periarticular osteopenia. Subtle cortical irregularity involving the medial aspect of the navicular bone. Could not exclude fracture in this region. Soft tissues: Mild soft tissue swelling dorsal aspect of the forefoot. IMPRESSION: 1. Subtle cortical irregularity involving the medial aspect of the navicular bone. Could not exclude fracture in this region. 2. Soft tissue swelling dorsal aspect of the forefoot. [facility] [place] HPI - General Stated complaint: AO 08/07 injured R big toe Time Seen by Provider: 08/08/21 19:00 Mode of Arrival: Ambulatory Source of Information: Patient Limitations: No Limitations Description of Symptoms (Recalled from Triage Doc. by RN): pt here due to a right big toe injury. pt was playing kickball with kids yesterday and pt kicked into hole in the ground. pt is a hemophiliac. and he did take an extra dose of his medication when he had the injury. HEENT Symptoms (Recalled from RN notes): No Resp Symptoms (Recalled from RN notes): No Skin Symptoms (Recalled from RN notes): No MS Symptoms (Recalled from RN notes): Yes Functional Status (Recalled from RN notes): wnl - History of Present Illness Provider Complaint: He accidentilly hit his left great toe on the ground last night while walking. He has had left great toe pain and swelling since then. He is a hemophilliac. He is here to have it x-rayed to make sure it is not broke. He denies any bleeding or bruising. - Related Data Previous Rx's Medication Instructions Recorded terbinafine HCL [Lamisil 1% cream 12 gm TP BID 14 Days #1 tube 08/15/20 12gm tube] Cyclobenzaprine HCl [Flexeril
[2021-08-08 19:39] VITALS: BP 143/97; PULSE 76; RESP 19; TEMP 37.1
== END 2021-08-08 19:41 | disposition home or self-care (01) ==
PROVIDERS: Emergency Provider Nurse Practitioner Family; PCP Family Medicine
DX: S99.922A Unspecified injury of left foot, initial encounter (principal); M79.672 Pain in left foot; M79.675 Pain in left toe(s); D66 Hereditary factor VIII deficiency
CPT/HCPCS: 73610; 73630; 99212; G0463

== ENCOUNTER 2021-10-30 20:01 | Emergency (ER) | payer MEDICARE, MEDICAID, SELFPAY ==
[2021-10-30 21:24] VITALS: BP 136/86; PULSE 68; RESP 16; TEMP 37; O2SAT 98; BMI 23.8
[2021-10-30 21:31] LABS: Microscopic, Urine URINE MICROSCOPIC (MICROSCOPIC)
--- NOTE | 2021-10-30 21:31 | CT_ITS ---
PROCEDURE INFORMATION: Exam: CT Abdomen And Pelvis Without Contrast Exam date and time: 10/30/2021 9:39 PM Age: 41 years old Clinical indication: Abdominal pain; Flank; Right; Additional info: Right flank pain TECHNIQUE: Imaging protocol: Computed tomography of the abdomen and pelvis without contrast. Radiation optimization: All CT scans at this facility use at least one of these dose optimization techniques: automated exposure control; mA and/or kV adjustment per patient size (includes targeted exams where dose is matched to clinical indication); or iterative reconstruction. COMPARISON: [facility] CT abdomen pelvis wo con 11/23/2017 1:48 PM FINDINGS: Lungs: Clear basilar lung parenchyma. Pleural spaces: No pleural fluid. Heart: Normal heart size. Liver: Normal. No mass. Gallbladder and bile ducts: Postprandial gallbladder is contracted. Pancreas: Normal. No ductal dilation. Spleen: Normal. No splenomegaly. Adrenal glands: Normal. No mass. Kidneys and ureters: Kidneys are symmetric without evidence of obstruction or inflammation. Stomach and bowel: Unremarkable. No obstruction. No mucosal thickening. Appendix: Normal appendix is confirmed. Intraperitoneal space: Unremarkable. No free air. No significant fluid collection. Vasculature: Unremarkable. No abdominal aortic aneurysm. Lymph nodes: Unremarkable. No enlarged lymph nodes. Urinary bladder: Unremarkable as visualized. Reproductive: Unremarkable as visualized. Bones/joints: Mild disc space narrowing noted at L5-S1. No fracture or destructive lesion. Patent spinal canal and neural foramina. Soft tissues: Unremarkable. IMPRESSION: No acute abnormality to explain patient's right flank pain. In particular, there is no evidence of urolithiasis or bowel obstruction, and a normal appendix is confirmed.
[2021-10-30 21:38] LABS: Appearance,Urine CLEAR (Clear); Bilirubin,Urine Negative (Negative); Blood, Urine TRACE-I (Negative); Color,Urine YELLOW (Yellow); Glucose,Urine (UA) Negative (Negative); Ketones,Urine Negative (Negative); Leukocyte Esterase,Urine Negative (Negative); Nitrate,Urine Negative (Negative); PH,Urine 5.5 (5.0-8.5); Protein,Urine Negative (Negative); Specific Gravity, Urine >= 1.030 (1.005-1.030); Urobilinogen,Urine 0.2 EU/dl (0.2)
[2021-10-30 21:40] VITALS: BP 126/76; PULSE 64; RESP 16; O2SAT 99
[2021-10-30 21:44] LABS: Amorphous Sediment,Urine Trace /lpf; WBC,Urine Occasional #/hpf (0-3)
[2021-10-30 21:50] LABS: Basophils # 0.1 K/mm3 (0-0.2); Basophils % 1.3 % (0.1-2.0); Eosinophils # 0.2 K/mm3 (0.0-0.4); Eosinophils % 2.4 % (0.1-12.0); Hematocrit 47.4 % (42.0-52.0); Lymphocytes # 2.1 K/mm3 (0.7-4.5); Lymphocytes % 28.1 % (10-50); Mean Corpuscular HGB Conc 33.7 g/dL (31.8-35.4); Mean Corpuscular Hemoglobin 30.9 pg (27.0-31.2); Mean Corpuscular Volume 91.8 fl (80-94); Mean Platelet Volume 7.6 fl (7.4-10.4); Monocytes # 0.4 K/mm3 (0.1-1.0); Monocytes % 5.3 % (1.7-9.3); Neutrophils # 4.6 K/mm3 (1.8-7.8); Neutrophils % 62.8 % (37.0-80.0); Platelet Count 360 K/mm3 (142-424); Red Blood Count 5.16 M/mm3 (4.60-6.20); Red Cell Distribution Width 13.7 % (11.5-17.5); White Blood Count 7.4 K/mm3 (4.8-10.8)
[2021-10-30 21:57] LABS: INR 0.96 (0.9-1.1); Prothrombin Time 10.9 seconds (10.1-12.5)
[2021-10-30 21:58] LABS: Alanine Aminotransferase 27 U/L (12-78); Albumin Level 4.1 g/dl (3.5-5.0); Albumin/Globulin Ratio 1.5 (1.1-1.8); Alkaline Phosphatase 109 U/L (38-126); Anion Gap 9.7 mEq/L (5-15); Aspartate Amino Transferase 31 U/L (17-59); Bilirubin,Total 0.8 mg/dl (0.2-1.3); Blood Urea Nitrogen 9 mg/dl (9-20); Calcium 8.3 mg/dl (8.4-10.2); Carbon Dioxide 28 mmol/L (22.0-30.0); Chloride 106 mmol/L (98-107); Creatinine Clearance Estimated 153 mL/min (50-200); Estimated Glomerular Filt Rate 107 ml/min (>60); GFR (African American) 129 ML/MIN (>60); Globulin 2.8 g/dL (1.3-3.2); Glucose 105 mg/dl (74-100); Potassium 3.7 mmoL/L (3.5-5.1); Sodium 140 mmol/L (136-145); Total Protein,Serum 6.9 g/dl (6.3-8.2)
[2021-10-30 22:01] VITALS: BP 128/87; PULSE 65; O2SAT 99
[2021-10-30 22:04] LABS: C-Reactive Protein 2.4 mg/L (0-4)
[2021-10-30 22:21] LABS: Erythrocyte Sedimentation Rate 14 mm/hr (0-15)
--- NOTE | 2021-10-30 22:36 | PC.NURSE ---
Rounded on pt. Pt voiced no needs or complaints at this time.
[2021-10-30 23:00] VITALS: BP 125/75; PULSE 61
--- NOTE | 2021-10-30 23:28 | PC.NURSE ---
MADE AWARE THAT CT/LABS ARE BACK ON ROOM 9. PT UPDATED.
[2021-10-30 23:30] VITALS: BP 135/81; PULSE 53
--- NOTE | 2021-10-30 23:41 | PC.NURSE ---
PT AWARE OF RESULTS RETURNED. NO ACUTE DISTRESS NOTED. WCM.
--- NOTE | 2021-10-30 23:58 | HMH.EDGENADL ---
ED Disposition Clinical Impression: Hemophilia Low back pain Qualifiers: Chronicity: acute Back pain laterality: right Sciatica presence: without sciatica Qualified Code(s): M54.50 - Low back pain, unspecified Disposition: Home, Self-Care Condition on Discharge: Good Instructions: DI for Low Back Pain Additional Instructions: use meds and see pcp for follow up Referrals: Papito Baez MD [Primary Care Provider] - - Critical Care Critical Care Time: No Attestation: On 10/30/21, the high probability of a clinically significant, sudden or life threatening deterioration of the following system(s) required my full and direct attention, intervention and personal management. The time I documented below is in addition to time spent performing reported procedures but includes the following listed in this critical care notation. Medical Decision Making - Medical Records Medical records reviewed: Yes: I reviewed the patient's medical records. - Jeffery Inquiry Pt receiving controlled substance: No Vital Signs: 10/30/21 21:24 10/30/21 21:40 10/30/21 22:01 Temperature 98.6 F Temperature Source Oral Pulse Rate 64 65 Pulse Rate [Left Radial] 68 Respiratory Rate 16 16 Blood Pressure 126/76 128/87 Blood Pressure [Right Arm] 136/86 Blood Pressure Mean 92 Blood Pressure Mean [Right Arm] 102 Blood Pressure Source [Right Arm] Automatic Cuff Blood Pressure Position [Right Arm] Sitting 02 Sat by Pulse Oximetry 98 99 99 Oxygen Delivery Method Room Air Room Air 10/30/21 23:00 10/30/21 23:30 Temperature Temperature Source Pulse Rate 61 53 L Pulse Rate [Left Radial] Respiratory Rate Blood Pressure 125/75 135/81 Blood Pressure [Right Arm] Blood Pressure Mean 92 99 Blood Pressure Mean [Right Arm] Blood Pressure Source [Right Arm] Blood Pressure Position [Right Arm] 02 Sat by Pulse Oximetry Oxygen Delivery Method - Lab Data Lab results reviewed: Yes: I reviewed the patient's lab results. Lab Results 10/30/21 21:26: Urine Color Yellow, Urine Appearance Clear, Urine pH 5.5, Ur Specific [place] >= 1.030, Urine Protein Negative, Urine Glucose (UA) Negative, Urine Ketones Negative, Urine Blood Trace-i, Urine Nitrate Negative, Urine Bilirubin Negative, Urine Urobilinogen 0.2, Ur Leukocyte Esterase Negative, Urine WBC Occasional, Amorphous Sediment Trace 10/30/21 21:39: WBC 7.4, RBC 5.16, Hgb 16.0, Hct 47.4, MCV 91.8, MCH 30.9, MCHC 33.7, RDW 13.7, Plt Count 360, MPV 7.6, Neut % (Auto) 62.8, Lymph % (Auto) 28.1, [place] % (Auto) 5.3, Eos % (Auto) 2.4, Baso % (Auto) 1.3, Neut # (Auto) 4.6, Lymph # (Auto) 2.1, [place] # (Auto) 0.4, Eos # (Auto) 0.2, Baso # (Auto) 0.1, ESR 14 10/30/21 21:39: PT 10.9, INR 0.96 10/30/21 21:39: Sodium 140, Potassium 3.7, Chloride 106, Carbon Dioxide 28, Anion Gap 9.7, BUN 9, Creatinine 0.80, Estimated Creat Clear 153, Estimated GFR 107, Est GFR ( Amer) 129, Glucose 105 H, Calcium 8.3 L, Total Bilirubin 0.8, AST 31, ALT 27, Alkaline Phosphatase 109, C-Reactive Protein 2.4, Total Protein 6.9, Albumin 4.1, Globulin 2.8, Albumin/Globulin Ratio 1.5 Result diagrams: 10/30/21 21:39 10/30/21 21:39 Orders (Tests/Meds): ED MEDICATIONS Generic Name Dose Route Start Last Admin Trade Name Freq PRN Reason Stop Dose Admin Sodium Chloride 1,000 mls @ 999 mls/hr 10/30/21 21:45 10/30/21 21:44 Sod Chlor 0.9% 1000ml Bag IV 10/30/21 22:45 999 mls/hr .Q1H1M BUTCH Administration - CT Data CT Scan: Abdomen, Pelvis Time Received: 00:[address] Reviewed: Yes: I have viewed the radiologist's interpretation Preliminary Findings: Normal/NAD Medical Decision Narrative: nonspecific rt flank - possible related to factor 5 but stable exam and labs and xray General Adult HPI - General Chief complaint: PAIN Stated complaint: back pain(no accident) Time Seen by Provider: 10/31/21 00:04 Mode of Arrival: Ambulatory Source of Information: Patient, Me
--- NOTE | 2021-10-30 23:59 | PC.NURSE ---
at BS speaking with pt about results
[2021-10-31 00:05] VITALS: BP 126/89; PULSE 88; RESP 16; TEMP 36.9; O2SAT 97
== END 2021-10-31 00:16 | disposition home or self-care (01) ==
PROVIDERS: Emergency Provider Emergency Medicine; PCP Family Medicine
DX: R10.9 Unspecified abdominal pain (principal); M54.50 Low back pain, unspecified; D66 Hereditary factor VIII deficiency
CPT/HCPCS: 74176; 80053; 81001; 85025; 85610; 85651; 86140; 96360; 99284

== ENCOUNTER 2021-11-08 10:34 | Emergency (ER) | payer MEDICARE, MEDICAID, SELFPAY ==
[2021-11-08 11:40] VITALS: BP 114/83; PULSE 67; RESP 18; TEMP 36.4; O2SAT 97; BMI 23.8
--- NOTE | 2021-11-08 11:41 | HMH.EDUTC ---
[facility] [place] Clinical Impression: Viral syndrome Pharyngitis Qualifiers: Pharyngitis/tonsillitis etiology: unspecified etiology Qualified Code(s): J02.9 - Acute pharyngitis, unspecified Disposition: Home, Self-Care Condition on Discharge: Good Instructions: DI for Pharyngitis/Tonsillopharyngitis -- Adult, Preventing the Spread of Coronavirus Discharge Instructions Additional Instructions: Drink plenty of fluids. Take tylenol or ibuprofen for pain or fever. Take the medications as directed. Follow up with your regular doctor. GO TO THE ER FOR ANY WORSENING SYMPTOMS Quarantine until you know the results of your covid-19 test. Notify your school or workplace of your results and follow their instructions regarding return to work/school. Prescriptions: Benzonatate [Benzonatate 100mg cap] 100 mg PO TIDP PRN #30 cap PRN Reason: Cough Transmission Status: Received by [facility] predniSONE [Deltasone 10mg tablet] 10 mg PO BID 3 Days #6 tab Transmission Status: Received by [facility] Cefdinir [Omnicef 300mg Capsule] 300 mg PO BID #20 cap Transmission Status: Received by [facility] Referrals: Papito Baez MD [Primary Care Provider] - Time of Disposition: 12:05 Medical Decision Making - Medical Records Medical records reviewed: No: I reviewed the patient's medical records. - Jeffery Inquiry Pt receiving controlled substance: No Vital Signs: 11/08/21 11:40 11/08/21 12:05 Temperature 97.6 F 97.6 F Temperature Source Oral Pulse Rate 67 Pulse Rate [Right Brachial] 67 Respiratory Rate 18 18 Blood Pressure 114/83 Blood Pressure [Right Arm] 114/83 Blood Pressure Mean [Right Arm] 93 Blood Pressure Source [Right Arm] Automatic Cuff Blood Pressure Position [Right Arm] Sitting 02 Sat by Pulse Oximetry 97 Oxygen Delivery Method Room Air - Lab Data Lab results reviewed: Yes: I reviewed the patient's lab results. Lab Results 11/08/21 11:40: Strep Scn Rapid Clinic Negative Orders (Tests/Meds): ORDERS Category Date Time Status Strep Screen Confirmation Stat Micro 11/08/21 11:40 [place] [facility] [place] - General Stated complaint: sore throat Time Seen by Provider: 11/08/21 11:41 - History of Present Illness Provider Complaint: He states that for the past 2 days he has had a sore throat, chills, and he has felt bad. - Related Data Home Medications Medication Instructions Recorded Confirmed Emicizumab-Kxwh [Hemlibra] 300 mg SQ QOW 10/30/21 10/30/21 Factor XIII [Corifact] 1 dose SQ [id number] PRN 10/30/21 10/30/21 Previous Rx's Medication Instructions Recorded Benzonatate [Benzonatate 100mg 100 mg PO TIDP PRN #30 cap 11/08/21 cap] Cefdinir [Omnicef 300mg Capsule] 300 mg PO BID #20 cap 11/08/21 predniSONE [Deltasone 10mg tablet] 10 mg PO BID 3 Days #6 tab 11/08/21 Allergies Allergy/AdvReac Type Severity Reaction Status Date / Time clarithromycin [From BIAXIN] Allergy Intermediate I-RASH Verified 08/08/21 18:43 aspirin [ASPIRIN] Allergy Unknown Verified 08/08/21 18:43 Penicillins [PENICILLINS] Allergy Unknown Verified 08/08/21 18:43 [facility] History - Hepatitis A Screen Attestation statement:: This patient has been screened for Hepatitis A risk factors. I have reviewed the patient's past medical history: Yes Medical History: Reports:: Anxiety, Asthma, Depression, Kidney Stones Denies:: Cancer, Diabetes Mellitus Type 1, Diabetes Mellitus Type 2, MRSA Other Medical History: Reports: Arthritis, Sinus Problems Other Surgeries: Yes: Other (B elbows and Ankles - joints cleaned) Amputation: No - Social History Smoking Status: Never smoker Alcohol Intake: never Alcohol Intake Frequency:: 3 or more drinks per day Substance Use Type: marijuana Occupational Status: unemployed Housing: house Comment: -he will drink 4-6 shots of vodka when he wants to drink. -they have $0.50 shots and he will get a fe
[2021-11-08 11:52] LABS: UTC Strep Screen (Rapid) Negative (Negative)
[2021-11-08 12:05] VITALS: BP 114/83; PULSE 67; RESP 18; TEMP 36.4; O2SAT 97
== END 2021-11-08 12:20 | disposition home or self-care (01) ==
PROVIDERS: Emergency Provider Nurse Practitioner Family; PCP Family Medicine
DX: B34.9 Viral infection, unspecified (principal); Z20.822 Contact with and (suspected) exposure to COVID-19
CPT/HCPCS: 87880; 99212; C9803; G0463; U0003; U0005

== ENCOUNTER 2022-01-01 13:26 | Emergency (ER) | payer MEDICARE, MEDICAID, SELFPAY ==
[2022-01-01] VITALS (11 sets, daily range): BP systolic 112–146; BP diastolic 73–98; PULSE 60–67; RESP 18; TEMP 36.6–36.8; O2SAT 95–100; BMI 23.8
--- NOTE | 2022-01-01 13:23 | ECG_ITS ---
APPROVED REPORT Exam: Resting ECG HR:62 bpm ECG Measurements Heart Rate 62 AXES MS 105 P -33 QRSd 93 QRS -24 QT 406 T 37 QTc 411 Conclusion SINUS RHYTHM WITH SHORT MS INTERVAL LEFT AXIS DEVIATION [QRS AXIS < -20] BORDERLINE ECG UNCONFIRMED REPORT Electronically signed by : Syd Whitley MD 01/03/2022 21:26:15
--- NOTE | 2022-01-01 13:30 | XR_ITS ---
PROCEDURE INFORMATION: Exam: XR Chest Exam date and time: 01/01/2022 1:51 PM Age: 41 years old Clinical indication: Pain; Chest pressure; Additional info: Chest pain TECHNIQUE: Imaging protocol: Radiologic exam of the chest. Views: 1 view. Portable AP exam 1:53 p.m. COMPARISON: CT CHEST W CON 09/30/2020 1:48 PM FINDINGS: Lungs: No acute pulmonary findings. No pulmonary consolidation. Lung volumes within normal limits. Pulmonary vessels do not appear congested. Pleural spaces: Unremarkable. No significant pleural effusion. No pneumothorax. Heart/Mediastinum: The cardiac silhouette is normal. Bones/joints: There is no evidence of acute fracture. IMPRESSION: No acute findings.
[2022-01-01 13:39] LABS: Basophils # 0.1 K/mm3 (0-0.2); Basophils % 1.6 % (0.1-2.0); Eosinophils # 0.1 K/mm3 (0.0-0.4); Eosinophils % 1.8 % (0.1-12.0); Hematocrit 48.1 % (42.0-52.0); Hemoglobin 16.4 g/dL (14.1-18.0); Lymphocytes # 1.7 K/mm3 (0.7-4.5); Lymphocytes % 28.4 % (10-50); Mean Corpuscular HGB Conc 34.2 g/dL (31.8-35.4); Mean Corpuscular Hemoglobin 31.1 pg (27.0-31.2); Mean Corpuscular Volume 90.9 fl (80-94); Mean Platelet Volume 7.5 fl (7.4-10.4); Monocytes # 0.3 K/mm3 (0.1-1.0); Monocytes % 5.3 % (1.7-9.3); Neutrophils # 3.7 K/mm3 (1.8-7.8); Neutrophils % 62.9 % (37.0-80.0); Platelet Count 336 K/mm3 (142-424); Red Blood Count 5.29 M/mm3 (4.60-6.20); Red Cell Distribution Width 13.7 % (11.5-17.5); White Blood Count 5.8 K/mm3 (4.8-10.8)
--- NOTE | 2022-01-01 13:43 | PC.NURSE ---
RADIOLOGY AT BEDSIDE.
[2022-01-01 13:45] LABS: Chloride 102 mmol/L (98-107); Potassium 3.9 mmoL/L (3.5-5.1); Sodium 140 mmol/L (136-145)
--- NOTE | 2022-01-01 13:47 | HMH.EDGENADL ---
Discharge Plan Disposition Patient Disposition: Home, Self-Care Condition: Good Chief Complaint: Chest Pain Prescriptions Prescriptions: No Action factor XIII 1 EACH recon soln 1 dose SQ [id number] PRN (Reason: HEMOPHILIA EMERGENCY) emicizumab-kxwh 150 MG/ML solution 300 mg SQ QOW prednisone 10 MG tablet 10 mg PO BID 3 Days Qty: 6 0RF benzonatate 100 MG capsule 100 mg PO TIDP PRN (Reason: Cough) Qty: 30 0RF cefdinir 300 MG capsule 300 mg PO BID Qty: 20 0RF Referrals Follow up/Referrals: Provider,Referral, MD [Referring] - See instructions Activity Restrictions/Add. Instructions Additional Instructions/Restrictions: You have been evaluated for chest pain. Overall presentation is concerning for chest wall pain, costochondritis. Please take acetaminophen as needed. Monitor your symptoms closely. Follow-up with your primary care doctor in 1 to 2 days for symptom recheck. Return to the emergency department at once for any new or worsening symptoms Clinical Impressions Clinical Impression: Chest wall pain, Costochondritis Instructions Patient Instructions: DI for Costochondritis, DI for Atypical Chest Pain Discharge ED Provider: Xenia Keller Adult HPI General Chief complaint: Chest Pain Stated complaint: Chest Pain Time Seen by Provider: 01/01/22 13:33 Mode of Arrival: Ambulatory Source of Information: Patient Limitations: No Limitations Description of Symptoms (Recalled from ER Triage Doc. by RN): pt to ed c/o runny nose and a sharp pain in the center of his chest since this morning. pt states the pain does not move anywhere and denies any associated symptoms. History of Present Illness HPI narrative: 41-year-old male presenting to the emergency department with chest pain. Pain started this morning when he woke up. Described as sharp, burning. Located in the front of his chest, near the sternum. Has been constant since onset. Does not radiate to the jaw, arm, back. He has had a cough over the last few days with sinus congestion. No fevers or chills. He has never had chest pain like this before. No history of coronary artery disease, hypertension, tobacco use, heart attack. He is have hemophilia A. Receives infusions every other Monday, most recently was 8 days ago. Denies sore throat, vomiting, hematemesis, dark tarry stool. Related Data Home Medications Medication Instructions Recorded Confirmed emicizumab-kxwh 150 mg/mL 300 mg SQ QOW HEMOPHILIA 10/30/21 10/30/21 subcutaneous solution factor XIII 1,000 unit-1,600 unit 1 dose SQ [id number] PRN HEMOPHILIA 10/30/21 10/30/21 intravenous solution EMERGENCY Previous Rx's Medication Instructions Recorded benzonatate 100 mg capsule 100 mg PO TIDP PRN Cough #30 caps 11/08/21 cefdinir 300 mg capsule 300 mg PO BID #20 caps 11/08/21 prednisone 10 mg tablet 10 mg PO BID 3 days #6 tabs 11/08/21 Allergies Allergy/AdvReac Type Severity Reaction Status Date / Time clarithromycin [From BIAXIN] Allergy Intermediate I-RASH Verified 08/08/21 18:43 aspirin [ASPIRIN] Allergy Unknown Verified 08/08/21 18:43 Penicillins [PENICILLINS] Allergy Unknown Verified 08/08/21 18:43 PFSH PFSH Social History Smoking Status: Never smoker alcohol intake: never substance use type: marijuana current occupational status: unemployed Travel in the last 8 weeks: None housing: house number of children: 0 ROS Obtained: Yes All systems reviewed & no additional complaints except as documented Constitutional Constitutional: Denies chills, Denies fatigue, Denies fever(s) and Denies headache(s) ENT Ears, Nose, Mouth, and Throat: Denies headache(s), Reports nasal congestion and Reports sinus pressure Cardiovascular Cardiovascular: Reports chest pain, Reports chest pain at rest, Denies dyspnea, Denies leg edema and Denies palpitations Respiratory Respiratory: Reports cough and Denies dyspnea Gastrointestinal Gastrointestin
[2022-01-01 13:48] LABS: Anion Gap 11.9 mEq/L (5-15); Blood Urea Nitrogen 4 mg/dl (9-20); Carbon Dioxide 30 mmol/L (22.0-30.0); Creatinine Clearance Estimated 136 mL/min (50-200); Estimated Glomerular Filt Rate 93 ml/min (>60); GFR (African American) 113 ML/MIN (>60); Glucose 90 mg/dl (74-100)
[2022-01-01 14:02] LABS: Troponin I < 0.01 ng/ml (0.00-0.034)
[2022-01-01 15:34] LABS: D-Dimer 0.45 ug/mL (0.0-0.5)
--- NOTE | 2022-01-01 16:35 | CT_ITS ---
PROCEDURE INFORMATION: Exam: CTA Chest With Contrast Exam date and time: 01/01/2022 4:44 PM Age: 41 years old Clinical indication: Pain; Chest pressure; Additional info: Chest pain, dilated aorta 2018 TECHNIQUE: Imaging protocol: Computed tomographic angiography of the chest with contrast. 3D rendering (Not supervised by radiologist): MIP and/or 3D reconstructed images were created by the technologist. Radiation optimization: All CT scans at this facility use at least one of these dose optimization techniques: automated exposure control; mA and/or kV adjustment per patient size (includes targeted exams where dose is matched to clinical indication); or iterative reconstruction. Contrast material: ISOVUE; Contrast volume: 100 ml; Contrast route: INTRAVENOUS (IV); COMPARISON: [facility] CTA-CHEST 10/13/2016 12:06 PM FINDINGS: Pulmonary arteries: No acute pulmonary emboli. Aorta: No thoracic aortic aneurysm. Aorta measures up to approximately 3.4 cm diameter, within upper limits normal. No aneurysm. There are no CT findings of dissection, though the aorta is not as well enhanced as the pulmonary arteries on this exam. Lungs: Calcified right pulmonary granulomas. Minimal subsegmental atelectasis in the lower lungs. No consolidation. No suspicious nodules. Pleural spaces: Unremarkable. No significant pleural effusion. No pneumothorax. Heart: The heart is not enlarged. No significant pericardial effusion. No definite coronary artery calcification is visualized. Heart RV/LV ratio: RV/LV ratio approximate 0.75, within upper limits normal. However, there is a small amount of reflux into the IVC and hepatic veins, which could be due to right heart disease. Lymph nodes: Small calcified right hilar lymph nodes. No significantly enlarged lymph nodes by short axis criteria. Bones/joints: Mild spinal degenerative changes. No acute fracture or high-grade listhesis, as visualized. Soft tissues: There are no soft tissue masses or fluid collections. IMPRESSION: 1. No acute pulmonary emboli. 2. No thoracic aortic aneurysm or evidence of dissection. 3. Chronic granulomatous changes. 4. Additional nonemergency and chronic findings as above.
[2022-01-01 17:15] LABS: Troponin I < 0.01 ng/ml (0.00-0.034)
== END 2022-01-01 18:30 | disposition home or self-care (01) ==
PROVIDERS: Emergency Provider Emergency Medicine; PCP Family Medicine
DX: M94.0 Chondrocostal junction syndrome [Tietze] (principal); R07.89 Other chest pain; Z79.899 Other long term (current) drug therapy; D66 Hereditary factor VIII deficiency; Z88.0 Allergy status to penicillin; Z88.1 Allergy status to other antibiotic agents; Z88.6 Allergy status to analgesic agent
CPT/HCPCS: 36415; 71045; 71275; 80048; 84484; 85025; 85378; 93005; 99284; Q9967

== ENCOUNTER 2022-02-19 09:30 | Emergency (ER) | payer MEDICARE, MEDICAID, SELFPAY ==
--- NOTE | 2022-02-19 10:53 | EXP.UTC ---
Discharge Plan Disposition Patient Disposition: Home, Self-Care Condition: Good Prescriptions Prescriptions: New prednisone [prednisone] 20 mg tablet 20 mg PO DAILY 4 Days Qty: 4 0RF cefdinir 300 mg capsule 300 mg PO BID Qty: 20 0RF No Action factor XIII 1 EACH recon soln 1 dose SQ [id number] PRN (Reason: HEMOPHILIA EMERGENCY) emicizumab-kxwh 150 MG/ML solution 300 mg SQ QOW prednisone 10 MG tablet 10 mg PO BID 3 Days Qty: 6 0RF benzonatate 100 MG capsule 100 mg PO TIDP PRN (Reason: Cough) Qty: 30 0RF cefdinir 300 MG capsule 300 mg PO BID Qty: 20 0RF Referrals Follow up/Referrals: Papito Baez MD [Primary Care Provider] - See instructions Activity Restrictions/Add. Instructions Additional Instructions/Restrictions: Drink plenty of fluids. Take tylenol or ibuprofen for pain or fever. Take the medications as directed. Follow up with your regular doctor. GO TO THE ER FOR ANY WORSENING SYMPTOMS Clinical Impressions Clinical Impression: Strep throat Instructions Patient Instructions: Strep Throat, DI for Strep Throat Discharge ED Provider: Troy Suárez [facility] [place] HPI General Stated complaint: Sore throat,Congestion Time Seen by Provider: 02/19/22 10:53 History of Present Illness Provider Complaint: He c/o sore throat for the past 2 days. Related Data Home Medications Medication Instructions Recorded Confirmed emicizumab-kxwh 150 mg/mL 300 mg SQ QOW HEMOPHILIA 10/30/21 10/30/21 subcutaneous solution factor XIII 1,000 unit-1,600 unit 1 dose SQ [id number] PRN HEMOPHILIA 10/30/21 10/30/21 intravenous solution EMERGENCY Previous Rx's Medication Instructions Recorded benzonatate 100 mg capsule 100 mg PO TIDP PRN Cough #30 caps 11/08/21 cefdinir 300 mg capsule 300 mg PO BID #20 caps 11/08/21 prednisone 10 mg tablet 10 mg PO BID 3 days #6 tabs 11/08/21 cefdinir 300 mg capsule 300 mg PO BID #20 caps 02/19/22 prednisone 20 mg tablet 20 mg PO DAILY 4 days #4 tabs 02/19/22 Allergies Allergy/AdvReac Type Severity Reaction Status Date / Time clarithromycin [From BIAXIN] Allergy Intermediate I-RASH Verified 02/19/22 11:17 aspirin [ASPIRIN] Allergy Unknown Verified 02/19/22 11:17 Penicillins [PENICILLINS] Allergy Unknown Verified 02/19/22 11:17 [facility] Disclaimer: The information contained in this section may have been updated after the patient was seen, as this information can be updated by other users. Social History Smoking Status: Never smoker alcohol intake: never substance use type: marijuana current occupational status: unemployed Travel in the last 8 weeks: None housing: house number of children: 0 ROS Obtained: Yes All systems reviewed & no additional complaints except as documented Constitutional Constitutional: Reports chills and Reports fever(s) Eyes Eyes: Denies eye discharge ENT Ears, Nose, Mouth, and Throat: Reports as per HPI Cardiovascular Cardiovascular: Denies chest pain Respiratory Respiratory: Denies chest congestion and Reports cough Gastrointestinal Gastrointestingal: Reports nausea; Denies abdominal pain, constipation, cramping, diarrhea or vomiting Musculoskeletal Musculoskeletal: Denies arthralgias Integumentary/Breasts Skin/Breast: Denies rash Neurologic Neurologic: Denies paresthesias Physical Exam General General appearance: alert and in no apparent distress Head Head exam: atraumatic, normocephalic and normal inspection Eye Eye exam: Present normal appearance, PERRL and EOMI ENT ENT exam: Present mucous membranes moist and normal external ear exam Expanded ENT Exam TM/Canal exam: Bilateral TM: erythema and bulging Nose exam: Absent sinus tenderness Mouth exam: Present normal external inspection; Absent drooling Teeth exam: Present normal inspection Throat exam: Present tonsillar erythema, tonsillomegaly and tonsillar exudate Nec
[2022-02-19 11:03] LABS: UTC Strep Screen (Rapid) Positive (Negative)
[2022-02-19 11:15] VITALS: BP 135/85; PULSE 60; RESP 16; TEMP 36.7; O2SAT 98; BMI 23.8
[2022-02-19 11:42] VITALS: BP 135/85; PULSE 60; RESP 16; TEMP 36.7
== END 2022-02-19 11:42 | disposition home or self-care (01) ==
PROVIDERS: Emergency Provider Nurse Practitioner Family; PCP Family Medicine
DX: J02.9 Acute pharyngitis, unspecified (principal); R50.9 Fever, unspecified; R05.9 Cough, unspecified; D66 Hereditary factor VIII deficiency; Z79.52 Long term (current) use of systemic steroids; Z79.899 Other long term (current) drug therapy; Z88.6 Allergy status to analgesic agent; Z88.8 Allergy status to other drugs, medicaments and biological substances
CPT/HCPCS: 87880; 99213; G0463

== ENCOUNTER 2022-05-16 14:54 | Emergency (ER) | payer MEDICARE, MEDICAID, SELFPAY ==
[2022-05-16 15:15] VITALS: BP 132/89; PULSE 62; RESP 20; TEMP 37.2; O2SAT 98; BMI 23.8
[2022-05-16 15:23] VITALS: BP 132/89; PULSE 62; RESP 20; TEMP 37.2; O2SAT 98
--- NOTE | 2022-05-16 15:29 | EXP.UTC ---
Discharge Plan Disposition Patient Disposition: Home, Self-Care Condition: Good Prescriptions Prescriptions: New cefdinir 300 mg capsule 300 mg PO BID Qty: 20 0RF No Action factor XIII 1 EACH recon soln 1 dose SQ [id number] PRN (Reason: HEMOPHILIA EMERGENCY) emicizumab-kxwh 150 MG/ML solution 300 mg SQ QOW prednisone 10 MG tablet 10 mg PO BID 3 Days Qty: 6 0RF benzonatate 100 MG capsule 100 mg PO TIDP PRN (Reason: Cough) Qty: 30 0RF cefdinir 300 MG capsule 300 mg PO BID Qty: 20 0RF prednisone [prednisone] 20 mg tablet 20 mg PO DAILY 4 Days Qty: 4 0RF cefdinir 300 mg capsule 300 mg PO BID Qty: 20 0RF Referrals Follow up/Referrals: Papito Baez MD [Primary Care Provider] - See instructions Activity Restrictions/Add. Instructions Additional Instructions/Restrictions: Take medication as prescribed Follow up with your Family Doctor for further treatment and evaluation of migraine headaches Return if needed Straight to ER if any life threatening symptoms Clinical Impressions Clinical Impression: Otitis media Qualifiers: Otitis media type: unspecified Laterality: right Qualified Code(s): H66.91 - Otitis media, unspecified, right ear Stand Alone Forms Stand Alone Forms: Work/School Release Instructions Patient Instructions: Middle Ear Infection, Migraine -- Adult Discharge ED Provider: Ursula Moore [facility] General Stated complaint: SIDDIQUI, pain in Rt ear Mode of Arrival: Ambulatory Source of Information: Patient Limitations: No Limitations Time Seen by Provider: 05/16/22 15:30 Description of Symptoms (Recalled from Triage Doc. by RN): PATIENT C/O HEADACHE AND RIGHT EAR PAIN SINCE MONDAY HEENT Symptoms (Recalled from RN notes): Yes Resp Symptoms (Recalled from RN notes): No Skin Symptoms (Recalled from RN notes): No MS Symptoms (Recalled from RN notes): No Functional Status (Recalled from RN notes): WNL History of Present Illness Provider Complaint: Patient states that he has been having pain in his right ear and headache since Monday States that he use to have migraines but not had them in awhile States that he took Ibuprofen around 1pm for the headache but not helped much Related Data Home Medications Medication Instructions Recorded Confirmed emicizumab-kxwh 150 mg/mL 300 mg SQ QOW HEMOPHILIA 10/30/21 10/30/21 subcutaneous solution factor XIII 1,000 unit-1,600 unit 1 dose SQ [id number] PRN HEMOPHILIA 10/30/21 10/30/21 intravenous solution EMERGENCY Previous Rx's Medication Instructions Recorded benzonatate 100 mg capsule 100 mg PO TIDP PRN Cough #30 caps 11/08/21 cefdinir 300 mg capsule 300 mg PO BID #20 caps 11/08/21 prednisone 10 mg tablet 10 mg PO BID 3 days #6 tabs 11/08/21 cefdinir 300 mg capsule 300 mg PO BID #20 caps 02/19/22 prednisone 20 mg tablet 20 mg PO DAILY 4 days #4 tabs 02/19/22 cefdinir 300 mg capsule 300 mg PO BID #20 caps 05/16/22 Allergies Allergy/AdvReac Type Severity Reaction Status Date / Time clarithromycin [From BIAXIN] Allergy Intermediate I-RASH Verified 02/19/22 11:17 aspirin [ASPIRIN] Allergy Unknown Verified 02/19/22 11:17 Penicillins [PENICILLINS] Allergy Unknown Verified 02/19/22 11:17 Worker's Comp Is this a Worker's Comp case?: No [facility] Disclaimer: The information contained in this section may have been updated after the patient was seen, as this information can be updated by other users. Social History Smoking Status: Never smoker alcohol intake: never substance use type: marijuana current occupational status: unemployed Travel in the last 8 weeks: None housing: house number of children: 0 ROS Obtained: Yes All systems reviewed & no additional complaints except as documented and Yes Systems reviewed as appropriate & no additional complaints except as documented Constitutional Constitutional: Reports system reviewed and n
== END 2022-05-16 16:00 | disposition home or self-care (01) ==
PROVIDERS: Emergency Provider Nurse Practitioner; PCP Family Medicine
DX: H66.91 Otitis media, unspecified, right ear (principal)
CPT/HCPCS: 99212; 99213; G0463

== ENCOUNTER 2022-05-30 19:18 | Emergency (ER) | payer MEDICARE, MEDICAID, SELFPAY ==
[2022-05-30 19:35] VITALS: BP 124/79; PULSE 69; RESP 15; TEMP 37.2; O2SAT 98; BMI 23.8
--- NOTE | 2022-05-30 19:42 | EXP.UTC ---
Discharge Plan Disposition Patient Disposition: Home, Self-Care Condition: Good Prescriptions Prescriptions: New fluticasone propionate [Flonase Allergy Relief] 50 mcg/actuation spray,suspension 1 spray intranasal DAILY Qty: 16 0RF Rx Instructions: administer into each nostril daily No Action factor XIII 1 EACH recon soln 1 dose SQ [id number] PRN (Reason: HEMOPHILIA EMERGENCY) emicizumab-kxwh 150 MG/ML solution 300 mg SQ QOW prednisone 10 MG tablet 10 mg PO BID 3 Days Qty: 6 0RF benzonatate 100 MG capsule 100 mg PO TIDP PRN (Reason: Cough) Qty: 30 0RF cefdinir 300 MG capsule 300 mg PO BID Qty: 20 0RF prednisone [prednisone] 20 mg tablet 20 mg PO DAILY 4 Days Qty: 4 0RF cefdinir 300 mg capsule 300 mg PO BID Qty: 20 0RF cefdinir 300 mg capsule 300 mg PO BID Qty: 20 0RF Referrals Follow up/Referrals: Papito Baez MD [Primary Care Provider] - See instructions Activity Restrictions/Add. Instructions Additional Instructions/Restrictions: *Monitor Temp, Over the counter Motrin or Tylenol as directed/as needed Tylenol every 4 hours and Motrin every 6 hours (as long as your family doctor has told you that you can take it) for fever or pain. and straight to ER if unable to lower temp less than 101.0 after medication given *Warm salt water gargles may help to soothe the throat *Throat Lozenges? *Warm fluids like tea with honey may help to soothe the throat? *Sleep elevated *Humidifier/Vaporizer *Flonase 2 sprays in each nostril daily but be aware that it may take 2-3 days before you notice improvement Your throat swab was sent for culture. Those results are typically sent to your primary care. Be sure to follow up in 2-3 days with your family doctor/primary care physician if no improvement so they can review those result and treat if necessary. If you don?t have a primary care doctor, I recommend you get one but in the mean time, you will have to return to a walk in clinic Follow up IMMEDIATELY for new or worsening symptoms or no Noticeable improvement over the next 48-72 hours. 911 for difficulty breathing or swallowing Clinical Impressions Clinical Impression: Viral upper respiratory infection Stand Alone Forms Stand Alone Forms: Work/School Release Instructions Patient Instructions: Sore Throat, DI for Ear Pain-Adult Discharge ED Provider: Ursula Moore [facility] HPI General Stated complaint: Sore throat,right earache Time Seen by Provider: 05/30/22 19:42 History of Present Illness Provider Complaint: Patient states that he recently had ear infection States that he finished his medication and his ear was feeling better but he work up this morning with sore throat and his right ear hurting again so this evening when his throat was still hurting he came in to get checked Related Data Home Medications Medication Instructions Recorded Confirmed emicizumab-kxwh 150 mg/mL 300 mg SQ QOW HEMOPHILIA 10/30/21 10/30/21 subcutaneous solution factor XIII 1,000 unit-1,600 unit 1 dose SQ [id number] PRN HEMOPHILIA 10/30/21 10/30/21 intravenous solution EMERGENCY Previous Rx's Medication Instructions Recorded benzonatate 100 mg capsule 100 mg PO TIDP PRN Cough #30 caps 11/08/21 cefdinir 300 mg capsule 300 mg PO BID #20 caps 11/08/21 prednisone 10 mg tablet 10 mg PO BID 3 days #6 tabs 11/08/21 cefdinir 300 mg capsule 300 mg PO BID #20 caps 02/19/22 prednisone 20 mg tablet 20 mg PO DAILY 4 days #4 tabs 02/19/22 cefdinir 300 mg capsule 300 mg PO BID #20 caps 05/16/22 fluticasone propionate 50 1 spray intranasal DAILY #16 grams 05/30/22 mcg/actuation nasal spray,suspension (Flonase Allergy Relief) Allergies Allergy/AdvReac Type Severity Reaction Status Date / Time clarithromycin [From BIAXIN] Allergy Intermediate I-RASH Verified 02/19/22 11:17 aspirin [ASPIRIN] Allergy Unknown Verified 02/19/22 11:17 Penicillins [PENICIL
[2022-05-30 19:52] LABS: UTC Strep Screen (Rapid) Negative (Negative)
[2022-05-30 20:04] VITALS: BP 131/88; PULSE 86; RESP 17; TEMP 36.8
== END 2022-05-30 20:08 | disposition home or self-care (01) ==
PROVIDERS: Emergency Provider Nurse Practitioner; PCP Family Medicine
DX: J06.9 Acute upper respiratory infection, unspecified (principal); H92.01 Otalgia, right ear; R07.0 Pain in throat; B34.9 Viral infection, unspecified
CPT/HCPCS: 87880; 99212; 99214; G0463

== ENCOUNTER 2023-04-07 16:33 | Emergency (ER) | payer MEDICARE, MEDICAID, SELFPAY ==
[2023-04-07 16:45] VITALS: BP 126/78; PULSE 75; RESP 19; TEMP 36.8; O2SAT 98; BMI 36.8
[2023-04-07 16:58] LABS: UTC Strep Screen (Rapid) Positive (Negative)
--- NOTE | 2023-04-07 16:58 | EXP.UTC ---
Discharge Plan Disposition Patient Disposition: Home, Self-Care Condition: Good Prescriptions Prescriptions: New prednisone [prednisone] 20 mg tablet 20 mg PO BID 5 Days Qty: 10 0RF oevlycbapxnjrlf-nwtwgjbvb-SW [Bromfed DM] 2-30-10 mg/5 mL Syrup 5 ml PO Q4H PRN (Reason: Cough) Qty: 120 0RF cefdinir 300 mg capsule 300 mg PO BID 20 Days Qty: 20 0RF No Action Hemlibra 150 mg/mL solution 150 mg SQ ONCE Referrals Follow up/Referrals: Papito Baez MD [Primary Care Provider] - See instructions Clinical Impressions Clinical Impression: Strep throat, Bronchitis Instructions Patient Instructions: DI for Strep Throat Discharge ED Provider: Kellie Grove [facility] [facility] [place] HPI General Stated complaint: congestion st Mode of Arrival: Ambulatory Source of Information: Patient Limitations: No Limitations Time Seen by Provider: 04/07/23 16:58 Description of Symptoms (Recalled from Triage Doc. by RN): PATIENT C/O SORE THROAT AND CHEST CONGESTION SINCE YESTERDAY HEENT Symptoms (Recalled from RN notes): Yes Resp Symptoms (Recalled from RN notes): Yes Skin Symptoms (Recalled from RN notes): No MS Symptoms (Recalled from RN notes): No Functional Status (Recalled from RN notes): WNL History of Present Illness Provider Complaint: Sore throat, cough, chest congestion since last night Onset (ago): day(s) (1) Location: chest Relieving factors: none Exacerbating factors: none Associated symptoms: cough Treatments prior to arrival: other (cough drops) Related Data Home Medications Medication Instructions Recorded Confirmed emicizumab-kxwh 150 mg/mL 150 mg SQ ONCE 04/07/23 04/07/23 subcutaneous solution (Hemlibra) Previous Rx's Medication Instructions Recorded bczatbuxdbmflbu-mnpjxwngdnzysih-DT 5 ml PO Q4H PRN Cough #120 mL 04/07/23 2 mg-30 mg-10 mg/5 mL oral syrup (Bromfed DM) cefdinir 300 mg capsule 300 mg PO BID 20 days #20 caps 04/07/23 prednisone 20 mg tablet 20 mg PO BID 5 days #10 tabs 04/07/23 Allergies Allergy/AdvReac Type Severity Reaction Status Date / Time clarithromycin [From BIAXIN] Allergy Intermediate I-RASH Verified 02/19/22 11:17 aspirin [ASPIRIN] Allergy Unknown Verified 02/19/22 11:17 Penicillins [PENICILLINS] Allergy Unknown Verified 02/19/22 11:17 Worker's Comp Is this a Worker's Comp case?: No [facility] Disclaimer: The information contained in this section may have been updated after the patient was seen, as this information can be updated by other users. Medical History (Updated 04/07/23 @ 17:03 by DIMA Baum) Anxiety Asthma Depression Hemophilia Kidney stone Migraine Social History Smoking Status: Never smoker alcohol intake: never substance use type: marijuana current occupational status: unemployed Travel in the last 8 weeks: None housing: house number of children: 0 ROS Obtained: Yes All systems reviewed & no additional complaints except as documented and Yes Systems reviewed as appropriate & no additional complaints except as documented Constitutional Constitutional: Reports system reviewed and no additional complaints, except as documented and Reports as per HPI Eyes Eyes: Reports system reviewed and no additional complaints, except as documented and Reports as per HPI ENT Ears, Nose, Mouth, and Throat: Reports system reviewed and no additional complaints, except as documented, Reports as per HPI and Reports sore throat Cardiovascular Cardiovascular: Reports system reviewed and no additional complaints, except as documented and Reports as per HPI Respiratory Respiratory: Reports system reviewed and no additional complaints, except as documented, Reports as per HPI, Reports chest congestion and Reports cough Gastrointestinal Gastrointestingal: Reports system reviewed and no additional complaints, except as documented and as per HPI Physical Exam General General appearance: alert and in no apparent distress Head Head exam: atraumatic, normocephalic and normal inspection Eye Eye exam: Present normal appearance, PERRL and EOMI ENT ENT exam: Present normal exam, mucous membranes moist, TM's normal bilaterally and normal external ear exam Expanded ENT Exam Throat exam: Present tonsillar erythema, tonsillomegaly and tonsillar exudate Neck Neck exam: Present normal inspection, full ROM and trachea midline; Absent meningismus or lymphadenopathy Chest Chest inspection: Present normal inspection and symmetric chest wall rise; Absent tenderness Respiratory Respiratory exam: Present wheezes; Absent respiratory distress Cardiovascular Cardiovascular exam: Present regular rate and normal rhythm; Absent JVD Abdominal Exam Abdominal exam: Present soft and normal bowel sounds; Absent distention, tenderness or guarding Extremities Exam Extremities exam: Present normal inspection, full ROM and normal capillary refill; Absent calf tenderness Back Exam Back exam: Present normal inspection; Absent tenderness Neurological Exam Neurological exam: Present alert and oriented X3 Psychiatric Psychiatric exam: Present normal affect and normal mood Skin Skin exam: Present warm, dry, intact and normal color Lymphatic Lymphatic Findings: no adenopathy Medical Decision Making Jeffery Inquiry Pt receiving controlled substance: No Vital Signs: 04/07/23 16:45 Temperature 98.3 F Temperature Source Oral Pulse Rate [Left Brachial] 75 Respiratory Rate 19 Blood Pressure [Left Arm] 126/78 Blood Pressure Mean [Left Arm] 94 Blood Pressure Source [Left Arm] Automatic Cuff Blood Pressure Position [Left Arm] Sitting 02 Sat by Pulse Oximetry 98 Oxygen Delivery Method Room Air Lab Data Lab results reviewed: Yes I reviewed the patient's lab results.
[2023-04-07 17:01] VITALS: BP 126/78; PULSE 75; RESP 19; TEMP 36.8; O2SAT 98
== END 2023-04-07 17:06 | disposition home or self-care (01) ==
PROVIDERS: Emergency Provider Physician Assistant; PCP Family Medicine
DX: J02.0 Streptococcal pharyngitis (principal); R07.0 Pain in throat; J20.9 Acute bronchitis, unspecified; R05.9 Cough, unspecified; R09.89 Other specified symptoms and signs involving the circulatory and respiratory systems; D66 Hereditary factor VIII deficiency
CPT/HCPCS: 87880; 99212; 99214; G0463

== ENCOUNTER 2023-04-19 09:39 | Emergency (ER) | payer MEDICARE, MEDICAID, SELFPAY ==
[2023-04-19 09:50] VITALS: BP 129/89; PULSE 68; RESP 17; TEMP 36.9; O2SAT 98; BMI 25.2
--- NOTE | 2023-04-19 10:13 | ED_ITS ---
Discharge Plan Disposition Patient Disposition: Home, Self-Care Condition: Good Prescriptions Prescriptions: New ondansetron 4 mg Tablet,Disintegrating 4 mg PO Q8H PRN (Reason: Nausea) Qty: 12 0RF No Action Hemlibra 150 mg/mL solution 150 mg SQ ONCE Referrals Follow up/Referrals: Papito Baez MD [Primary Care Provider] - See instructions Activity Restrictions/Add. Instructions Additional Instructions/Restrictions: Drink plenty of fluids. Take tylenol or ibuprofen for pain or fever. Take the medications as directed. Follow up with your regular doctor. GO TO THE ER FOR ANY WORSENING SYMPTOMS Clinical Impressions Clinical Impression: Gastroenteritis Instructions Patient Instructions: Viral Gastroenteritis, DI for Viral Gastroenteritis -- Adult, Ondansetron Discharge ED Provider: Troy Suárez [facility] General Stated complaint: v/d Time Seen by Provider: 04/19/23 10:13 History of Present Illness Provider Complaint: He states that for the past 1 day he has had n/v/d. He also had chills, but no documented fever. He denies abdominal pain. He has been exposed to children with a stomach virus. Related Data Home Medications Medication Instructions Recorded Confirmed emicizumab-kxwh 150 mg/mL 150 mg SQ ONCE 04/07/23 04/19/23 subcutaneous solution (Hemlibra) Previous Rx's Medication Instructions Recorded ondansetron 4 mg disintegrating 4 mg PO Q8H PRN Nausea #12 tabs 04/19/23 tablet Allergies Allergy/AdvReac Type Severity Reaction Status Date / Time clarithromycin [From BIAXIN] Allergy Intermediate I-RASH Verified 04/19/23 10:16 aspirin [ASPIRIN] Allergy Unknown Verified 04/19/23 10:16 Penicillins [PENICILLINS] Allergy Unknown Verified 04/19/23 10:16 [facility] Disclaimer: The information contained in this section may have been updated after the patient was seen, as this information can be updated by other users. Medical History (Updated 04/19/23 @ 10:50 by Troy Suárez APRN) Anxiety Asthma Depression Hemophilia Kidney stone Migraine Social History Smoking Status: Never smoker alcohol intake: never substance use type: marijuana current occupational status: unemployed Travel in the last 8 weeks: None housing: house number of children: 0 ROS Obtained: Yes All systems reviewed & no additional complaints except as documented Constitutional Constitutional: Denies chills, Denies fever(s) and Reports poor appetite ENT Ears, Nose, Mouth, and Throat: Denies dizziness and Denies sore throat Cardiovascular Cardiovascular: Denies dyspnea Respiratory Respiratory: Denies chest congestion, Denies cough and Denies dyspnea Gastrointestinal Gastrointestingal: Reports as per HPI, cramping, diarrhea, nausea and vomiting; Denies abdominal pain, hematemesis, hematochezia or melena Musculoskeletal Musculoskeletal: Denies arthralgias Integumentary/Breasts Skin/Breast: Denies rash Neurologic Neurologic: Denies dizziness Physical Exam General General appearance: alert and in no apparent distress Head Head exam: atraumatic and normocephalic Eye Eye exam: Present normal appearance, PERRL and EOMI ENT ENT exam: Present normal exam, normal oropharynx, mucous membranes moist, TM's normal bilaterally and normal external ear exam Neck Neck exam: Present normal inspection, full ROM and trachea midline; Absent tenderness, meningismus or lymphadenopathy Chest Chest inspection: Present normal inspection and symmetric chest wall rise; Absent tenderness, rash or abscess Respiratory Respiratory exam: Present normal lung sounds bilaterally; Absent respiratory distress, wheezes or stridor Cardiovascular Cardiovascular exam: Present regular rate and normal rhythm; Absent irregular rhythm, systolic murmur, diastolic murmur or JVD Abdominal Exam Abdominal exam: Present soft and hyperactive bowel sounds; Absent distention, tenderness, guarding, rebound, rigidity, psoas sign, obturator sign, heel tap sign, Sanders's sign, Rovsing's sign or tenderness at McBurney's Point Extremities Exam Extremities exam: Present normal inspection and full ROM; Absent tenderness Back Exam Back exam: Present normal inspection and full ROM; Absent tenderness, CVA tenderness (R) or CVA tenderness (L) Neurological Exam Neurological exam: Present alert, oriented X3 and CN II-XII intact Psychiatric Psychiatric exam: Present normal affect and normal mood Skin Skin exam: Present warm, dry, intact and normal color Lymphatic Lymphatic Findings: no adenopathy Medical Decision Making Medical Records Medical records reviewed: No I reviewed the patient's medical records. Jeffery Inquiry Pt receiving controlled substance: No
[2023-04-19 11:02] VITALS: BP 129/89; PULSE 68; RESP 17; TEMP 36.9; O2SAT 98
== END 2023-04-19 11:02 | disposition home or self-care (01) ==
PROVIDERS: Emergency Provider Nurse Practitioner Family; PCP Family Medicine
DX: A08.4 Viral intestinal infection, unspecified (principal); R11.2 Nausea with vomiting, unspecified
CPT/HCPCS: 99212; 99214; G0463

== ENCOUNTER 2023-04-29 09:10 | Emergency (ER) | payer MEDICARE, MEDICAID, SELFPAY ==
[2023-04-29 09:30] VITALS: BP 116/81; PULSE 72; RESP 20; TEMP 37.2; O2SAT 96; BMI 24.2
--- NOTE | 2023-04-29 09:51 | ED_ITS ---
Discharge Plan Disposition Patient Disposition: Home, Self-Care Condition: Good Prescriptions Prescriptions: New benzonatate [benzonatate] 100 mg capsule 100 mg PO TIDP PRN (Reason: Cough) Qty: 30 0RF ondansetron 4 mg Tablet,Disintegrating 4 mg PO Q8H PRN (Reason: Nausea) Qty: 12 0RF oseltamivir [Tamiflu] 75 mg capsule 75 mg PO BID Qty: 10 0RF No Action ondansetron 4 mg Tablet,Disintegrating 4 mg PO Q8H PRN (Reason: Nausea) Qty: 12 0RF Hemlibra 150 mg/mL solution 150 mg SQ ONCE Referrals Follow up/Referrals: Papito Baez MD [Primary Care Provider] - See instructions Activity Restrictions/Add. Instructions Additional Instructions/Restrictions: Drink plenty of fluids. Take tylenol for pain or fever. Take the medications as directed. Follow up with your regular doctor. GO TO THE ER FOR ANY WORSENING SYMPTOMS Clinical Impressions Clinical Impression: Gastroenteritis, Acute viral syndrome Instructions Patient Instructions: DI for Viral Gastroenteritis -- Adult, Ondansetron Discharge ED Provider: Troy Suárez [facility] General Stated complaint: st vomiting Mode of Arrival: Ambulatory Source of Information: Patient Limitations: No Limitations Time Seen by Provider: 04/29/23 09:30 Description of Symptoms (Recalled from Triage Doc. by RN): PATIENT C/O SORE THROAT, COUGH, HEADACHE AND VOMITING THAT STARTED LAST NIGHT HEENT Symptoms (Recalled from RN notes): Yes Resp Symptoms (Recalled from RN notes): Yes Skin Symptoms (Recalled from RN notes): No MS Symptoms (Recalled from RN notes): No Functional Status (Recalled from RN notes): WNL History of Present Illness Provider Complaint: He states that since yesterday he has had sore throat, chills, n/v, and a cough. His child has had strep throat recently. Related Data Home Medications Medication Instructions Recorded Confirmed emicizumab-kxwh 150 mg/mL 150 mg SQ ONCE 04/07/23 04/19/23 subcutaneous solution (Hemlibra) Previous Rx's Medication Instructions Recorded ondansetron 4 mg disintegrating 4 mg PO Q8H PRN Nausea #12 tabs 04/19/23 tablet benzonatate 100 mg capsule 100 mg PO TIDP PRN Cough #30 caps 04/29/23 ondansetron 4 mg disintegrating 4 mg PO Q8H PRN Nausea #12 tabs 04/29/23 tablet oseltamivir 75 mg capsule (Tamiflu) 75 mg PO BID #10 caps 04/29/23 Allergies Allergy/AdvReac Type Severity Reaction Status Date / Time clarithromycin [From BIAXIN] Allergy Intermediate I-RASH Verified 04/19/23 10:16 aspirin [ASPIRIN] Allergy Unknown Verified 04/19/23 10:16 Penicillins [PENICILLINS] Allergy Unknown Verified 04/19/23 10:16 Worker's Comp Is this a Worker's Comp case?: No [facility] Disclaimer: The information contained in this section may have been updated after the patient was seen, as this information can be updated by other users. Medical History (Updated 04/29/23 @ 10:11 by Troy Suárez APRN) Anxiety Asthma Depression Hemophilia Kidney stone Migraine Social History Smoking Status: Never smoker alcohol intake: never substance use type: marijuana current occupational status: unemployed Travel in the last 8 weeks: None housing: house number of children: 0 ROS Obtained: Yes All systems reviewed & no additional complaints except as documented Constitutional Constitutional: Denies chills, Denies fever(s) and Reports poor appetite ENT Ears, Nose, Mouth, and Throat: Denies dizziness and Denies sore throat Cardiovascular Cardiovascular: Denies dyspnea Respiratory Respiratory: Denies chest congestion, Denies cough and Denies dyspnea Gastrointestinal Gastrointestingal: Reports as per HPI; Denies abdominal pain Musculoskeletal Musculoskeletal: Denies arthralgias Integumentary/Breasts Skin/Breast: Denies rash Neurologic Neurologic: Denies dizziness Physical Exam General General appearance: alert and in no apparent distress Head Head exam: atraumatic and normocephalic Eye Eye exam: Present normal appearance, PERRL and EOMI ENT ENT exam: Present normal exam, normal oropharynx, mucous membranes moist, TM's normal bilaterally and normal external ear exam Neck Neck exam: Present normal inspection, full ROM and trachea midline; Absent tenderness, meningismus or lymphadenopathy Chest Chest inspection: Present normal inspection and symmetric chest wall rise; Absent tenderness, rash or abscess Respiratory Respiratory exam: Present normal lung sounds bilaterally; Absent respiratory distress, wheezes or stridor Cardiovascular Cardiovascular exam: Present regular rate and normal rhythm; Absent irregular rhythm, systolic murmur, diastolic murmur or JVD Abdominal Exam Abdominal exam: Present soft and hyperactive bowel sounds; Absent distention, tenderness, guarding, rebound, rigidity, psoas sign, obturator sign, heel tap sign, Sanders's sign, Rovsing's sign or tenderness at McBurney's Point Extremities Exam Extremities exam: Present normal inspection and full ROM; Absent tenderness Back Exam Back exam: Present normal inspection and full ROM; Absent tenderness, CVA tenderness (R) or CVA tenderness (L) Neurological Exam Neurological exam: Present alert, oriented X3 and CN II-XII intact Psychiatric Psychiatric exam: Present normal affect and normal mood Skin Skin exam: Present warm, dry, intact and normal color Lymphatic Lymphatic Findings: no adenopathy Medical Decision Making Medical Records Medical records reviewed: No I reviewed the patient's medical records. Jeffery Inquiry Pt receiving controlled substance: No Vital Signs: 04/29/23 09:30 Temperature 99.0 F Temperature Source Oral Pulse Rate [Left Brachial] 72 Respiratory Rate 20 Blood Pressure [Left Arm] 116/81 Blood Pressure Mean [Left Arm] 92 Blood Pressure Source [Left Arm] Automatic Cuff Blood Pressure Position [Left Arm] Sitting 02 Sat by Pulse Oximetry 96 Oxygen Delivery Method Room Air Lab Data Lab results reviewed: Yes I reviewed the patient's lab results.
[2023-04-29 09:57] LABS: UTC Strep Screen (Rapid) Negative (Negative)
[2023-04-29 09:58] LABS: UTC Influenza A Antigen Negative (Negative); UTC Influenza B Antigen Negative (Negative)
[2023-04-29 09:59] VITALS: BP 116/81; PULSE 72; RESP 20; TEMP 37.2; O2SAT 96
[2023-04-29 10:25] LABS: Adenovirus,PCR Not Detected (NotDetected); Coronavirus 19, PCR Not Detected (NotDetected); Coronavirus 229E Not Detected (NotDetected); Coronavirus NL63 Not Detected (NotDetected); Coronavirus OC43 Not Detected (NotDetected); Coronovirus HKU1,PCR Not Detected (NotDetected); Human Metapneumovirus Not Detected (NotDetected); Influenza A, PCR Not Detected (NotDetected); Influenza AH1, 2009 Not Detected (NotDetected); Influenza AH1, PCR Not Detected (NotDetected); Influenza AH3,PCR Not Detected (NotDetected); Parainfluenza 1, PCR Not Detected (NotDetected); Parainfluenza 2, PCR Not Detected (NotDetected); Parainfluenza 3, PCR Not Detected (NotDetected); Parainfluenza 4, PCR Not Detected (NotDetected); Respiratory Syncytial Virus Not Detected (NotDetected); Rhinovirus/Enterovirus Not Detected (NotDetected)
[2023-04-29 11:47] LABS: Influenza B, PCR Detected (NotDetected)
== END 2023-04-29 10:18 | disposition home or self-care (01) ==
PROVIDERS: Emergency Provider Nurse Practitioner Family; PCP Family Medicine
DX: J10.1 Influenza due to other identified influenza virus with other respiratory manifestations (principal); R05.9 Cough, unspecified; R11.2 Nausea with vomiting, unspecified; R07.0 Pain in throat; R68.83 Chills (without fever); D66 Hereditary factor VIII deficiency
CPT/HCPCS: 87632; 87635; 87804; 87880; 99212; 99214; G0463

== ENCOUNTER 2023-06-07 16:59 | Emergency (ER) | payer MEDICARE, MEDICAID, SELFPAY ==
[2023-06-07 17:05] VITALS: BP 131/86; PULSE 61; RESP 18; TEMP 36.9; O2SAT 99; BMI 25.5
[2023-06-07 17:31] LABS: UTC Strep Screen (Rapid) Negative (Negative)
--- NOTE | 2023-06-07 17:32 | ED_ITS ---
Discharge Plan Disposition Patient Disposition: Home, Self-Care Condition: Good Referrals Follow up/Referrals: Chepe Baez MD [Primary Care Provider] - See instructions Activity Restrictions/Add. Instructions Additional Instructions/Restrictions: *Monitor Temp, Over the counter Motrin or Tylenol as directed/as needed Tylenol every 4 hours and Motrin every 6 hours (as long as your family doctor has told you that you can take it) for fever or pain. and straight to ER if unable to lower temp less than 101.0 after medication given *Warm salt water gargles may help to soothe the throat *Throat Lozenges? *Warm fluids like tea with honey may help to soothe the throat? *Sleep elevated *Humidifier/Vaporizer Your throat swab was sent for culture. Those results are typically sent to your primary care. Be sure to follow up in 2-3 days with your family doctor/primary care physician if no improvement so they can review those result and treat if necessary. If you don?t have a primary care doctor, I recommend you get one but in the mean time, you will have to return to a walk in clinic Follow up IMMEDIATELY for new or worsening symptoms or no Noticeable improvement over the next 48-72 hours. 911 for difficulty breathing or swal lowing You were tested for today for Upper Respiratory Panel with COVID19 your test result should be back in the next 24hours, you may check your results on the [facility] My Health Portal You may return to work/school when fever free for 24hrs no medication Clinical Impressions Clinical Impression: Viral syndrome Instructions Patient Instructions: DI for Viral Syndrome, DI for Fever (Symptom) -- Adult, DI for Headache Discharge ED Provider[place] Ursula [place] [facility] [facility] [place] General Stated complaint: headache, fever Mode of Arrival: Ambulatory Source of Information: Patient Limitations: No Limitations Time Seen by Provider: 06/07/23 17:32 Description of Symptoms (Recalled from Triage Doc. by RN): PATIENT C/O HEADACHE AND FEVER X 2 DAYS HEENT Symptoms (Recalled from RN notes): Yes Resp Symptoms (Recalled from RN notes): No Skin Symptoms (Recalled from RN notes): No MS Symptoms (Recalled from RN notes): No Functional Status (Recalled from RN notes): WNL History of Present Illness Provider Complaint: Patient states that for the last couple of days he has been having headaches, body aches and fever on and off States today he was still having symptoms on and off so he came in to get checked Related Data Allergies Allergy/AdvReac Type Severity Reaction Status Date / Time clarithromycin [From BIAXIN] Allergy Intermediate I-RASH Verified 04/19/23 10:16 aspirin [ASPIRIN] Allergy Unknown Verified 04/19/23 10:16 Penicillins [PENICILLINS] Allergy Unknown Verified 04/19/23 10:16 Worker's Comp Is this a Worker's Comp case?: No [facility] Disclaimer: The information contained in this section may have been updated after the patient was seen, as this information can be updated by other users. Medical History (Updated 06/07/23 @ 17:37 by Ursula Moore APRN) Hemophilia Depression Anxiety Kidney stone Migraine Asthma Social History Smoking Status: Never smoker alcohol intake: never substance use type: marijuana current occupational status: unemployed Travel in the last 8 weeks: None housing: house number of children: 0 ROS Obtained: Yes All systems reviewed & no additional complaints except as documented and Yes Systems reviewed as appropriate & no additional complaints except as documented Constitutional Constitutional: Reports system reviewed and no additional complaints, except as documented, Reports as per HPI, Reports body ache, Reports fever(s) and Reports headache(s) ENT Ears, Nose, Mouth, and Throat: Reports system reviewed and no additional complaints, except as documented, Reports as per HPI, Denies otalgia, Reports headache(s), Denies nasal congestion, Denies nasal discharge, Denies sinus pain and Denies sinus pressure Cardiovascular Cardiovascular: Reports system reviewed and no additional complaints, except as documented and Reports as per HPI Respiratory Respiratory: Reports system reviewed and no additional complaints, except as documented, Reports as per HPI, Denies shortness of breath, Denies chest congestion and Denies cough Gastrointestinal Gastrointestingal: Reports system reviewed and no additional complaints, except as documented and as per HPI; Denies abdominal pain, cramping, diarrhea, nausea or vomiting Genitourinary Male Genitourinary: Reports system reviewed and no additional complaints, except as documented and Reports as per HPI Neurologic Neurologic: Reports headache(s) Physical Exam General General appearance: alert and in no apparent distress ENT ENT exam: Present mucous membranes moist Expanded ENT Exam TM/Canal exam: Left TM: canal tenderness (scratch noted on canal ) Nose exam: Absent sinus tenderness Throat exam: Present tonsillar erythema Respiratory Respiratory exam: Present normal lung sounds bilaterally; Absent respiratory distress or wheezes Cardiovascular Cardiovascular exam: Present regular rate, normal rhythm and normal heart sounds Abdominal Exam Abdominal exam: Present soft and normal bowel sounds; Absent distention or tenderness Neurological Exam Neurological exam: Present alert, oriented X3 and normal gait Medical Decision Making Jeffery Inquiry Pt receiving controlled substance: No Jeffery was queried for this patient: No Vital Signs: 06/07/23 17:05 Temperature 98.4 F Temperature Source Oral Pulse Rate [Right Brachial] 61 Respiratory Rate 18 Blood Pressure [Right Arm] 131/86 Blood Pressure Mean [Right Arm] 101 Blood Pressure Source [Right Arm] Automatic Cuff Blood Pressure Position [Right Arm] Sitting 02 Sat by Pulse Oximetry 99 Oxygen Delivery Method Room Air Lab Data Lab results reviewed: Yes I reviewed the patient's lab results. Medical Decision Narrative: discussed with patient likely viral wants to get tested for URP
[2023-06-07 17:38] VITALS: BP 131/86; PULSE 61; RESP 18; TEMP 36.9; O2SAT 99
[2023-06-07 17:50] LABS: Adenovirus,PCR Not Detected (NotDetected); Coronavirus 19, PCR Not Detected (NotDetected); Coronavirus 229E Not Detected (NotDetected); Coronavirus NL63 Not Detected (NotDetected); Coronavirus OC43 Not Detected (NotDetected); Coronovirus HKU1,PCR Not Detected (NotDetected); Human Metapneumovirus Not Detected (NotDetected); Influenza A, PCR Not Detected (NotDetected); Influenza AH1, 2009 Not Detected (NotDetected); Influenza AH1, PCR Not Detected (NotDetected); Influenza AH3,PCR Not Detected (NotDetected); Influenza B, PCR Not Detected (NotDetected); Parainfluenza 1, PCR Not Detected (NotDetected); Parainfluenza 2, PCR Not Detected (NotDetected); Parainfluenza 3, PCR Not Detected (NotDetected); Parainfluenza 4, PCR Not Detected (NotDetected); Respiratory Syncytial Virus Not Detected (NotDetected); Rhinovirus/Enterovirus Not Detected (NotDetected)
== END 2023-06-07 17:46 | disposition home or self-care (01) ==
PROVIDERS: Emergency Provider Nurse Practitioner; PCP Psychiatry & Neurology Sleep Medicine
DX: R51.9 Headache, unspecified (principal); R50.9 Fever, unspecified; B34.9 Viral infection, unspecified; D68.8 Other specified coagulation defects; F32.A Depression, unspecified; F41.9 Anxiety disorder, unspecified; J45.909 Unspecified asthma, uncomplicated
CPT/HCPCS: 87632; 87635; 87880; 99212; 99214; G0463

== ENCOUNTER 2023-07-25 13:25 | Emergency (ER) | payer MEDICARE, MEDICAID, SELFPAY ==
[2023-07-25 13:27] VITALS: BP 143/95; PULSE 64; RESP 16; TEMP 36.7; O2SAT 96; BMI 23.8
[2023-07-25 13:31] VITALS: BP 143/95; PULSE 64; O2SAT 96
--- NOTE | 2023-07-25 13:54 | CT_ITS ---
FINAL REPORT TECHNIQUE: Pre-and postcontrast images of the abdomen were performed by computed tomography. Extensive 3-D reconstruction images were performed. A CTA was performed. This study was performed with techniques to keep radiation doses as low as reasonably achievable (ALARA). Individualized dose reduction techniques using automated exposure control or adjustment of mA and/or kV according to the patient''s size were employed. CLINICAL HISTORY: abd pain/n/diarrhea, blood on stool, hemopheliac COMPARISON: 10/30/2021 FINDINGS: ABDOMEN/PELVIS: The lung bases are clear. Precontrast images demonstrate no evidence of nephrolithiasis. There is mild nonspecific gallbladder wall thickening. No adrenal masses are identified. The liver, spleen and pancreas are unremarkable. There is diffuse mild colon wall thickening, may represent colitis. The appendix is normal. CTA: The abdominal aorta is proper caliber. The SMA, celiac axis, and JERRELL are patent. There is no significant stenosis or calcification. The renal arteries are patent bilaterally. The iliacs are normal. IMPRESSION: No evidence of renal vascular hypertension or significant renal artery stenosis. Possible colitis. Reviewed, Interpreted and Dictated by Koby Tavarez III, MD Transcribed by Natali Robertson Authenticated and . [facility]
[2023-07-25 14:11] LABS: Basophils # 0.1 K/mm3 (0-0.2); Eosinophils # 0.1 K/mm3 (0.0-0.4); Eosinophils % 1.3 % (0.1-12.0); Hematocrit 45.1 % (42.0-52.0); Hemoglobin 15.6 g/dL (14.1-18.0); Lymphocytes # 1.9 K/mm3 (0.7-4.5); Lymphocytes % 29.7 % (10-50); Mean Corpuscular HGB Conc 34.7 g/dL (31.8-35.4); Mean Corpuscular Hemoglobin 31.9 pg (27.0-31.2); Mean Corpuscular Volume 91.9 fl (80-94); Mean Platelet Volume 7.6 fl (7.4-10.4); Monocytes # 0.4 K/mm3 (0.1-1.0); Monocytes % 6.9 % (1.7-9.3); Neutrophils # 3.9 K/mm3 (1.8-7.8); Neutrophils % 61.1 % (37.0-80.0); Platelet Count 325 K/mm3 (142-424); Red Cell Distribution Width 14.5 % (11.5-17.5); White Blood Count 6.4 K/mm3 (4.8-10.8)
[2023-07-25 14:12] LABS: Chloride 106 mmol/L (98-107); Sodium 139 mmol/L (136-145)
[2023-07-25] MEDS: ONDANSETRON 4MG/2ML VIAL 4 MG IV (14:13)
[2023-07-25] MEDS: LACTATED RINGERS 1000ML 1,000 ML 999 ML IV (14:13)
[2023-07-25 14:15] LABS: Alanine Aminotransferase 24 U/L (12-78); Alkaline Phosphatase 85 U/L (38-126); Aspartate Amino Transferase 31 U/L (17-59); Bilirubin,Total 1.3 mg/dl (0.2-1.3); Blood Urea Nitrogen 6 mg/dl (9-20); Carbon Dioxide 26 mmol/L (22.0-30.0); Creatinine Clearance Estimated 151 mL/min (50-200); Estimated Glomerular Filt Rate 106 ml/min (>60); GFR (African American) 128 ML/MIN (>60)
[2023-07-25 14:16] VITALS: BP 143/95; PULSE 67; O2SAT 97
[2023-07-25 14:16] LABS: Albumin/Globulin Ratio 1.5 (1.1-1.8); Calcium 8.7 mg/dl (8.4-10.2); Globulin 2.7 g/dL (1.3-3.2); Glucose 121 mg/dl (74-100); Total Protein,Serum 6.7 g/dl (6.3-8.2)
--- NOTE | 2023-07-25 14:32 | ED_ITS ---
Discharge Plan Disposition Patient Disposition: Home, Self-Care Prescriptions Prescriptions: New ondansetron 4 mg tablet,disintegrating 4 mg PO Q6H PRN (Reason: nausea and vomiting) Qty: 10 0RF Referrals Follow up/Referrals: Provider,Referral, [Primary Care Provider] - See instructions Activity Restrictions/Add. Instructions Additional Instructions/Restrictions: Call your family doctor to establish care for this visit to the emergency department and schedule follow-up within 48 hours to ensure improvement. If you have any worsening of your condition or any other concerning signs or symptoms, return to the emergency department or your primary care doctor for further evaluation. Clinical Impressions Clinical Impression: Diarrhea Instructions Patient Instructions: DI for Acute Abdominal Pain Discharge ED Provider: Davin Campos General Adult HPI <Dena Jim MD - Last Filed: 07/25/23 14:50> General Chief complaint: Abdominal Pain Stated complaint: v/d stomach pain blood in stool Time Seen by Provider: 07/25/23 13:47 Mode of Arrival: Ambulatory Source of Information: Patient Limitations: No Limitations Description of Symptoms (Recalled from ER Triage Doc. by RN): Patient reports being sick to his stomach with diarrhea since Monday. Denies vomiting. Also states that he has blood on his toliet paper when he wipes. History of Present Illness HPI narrative: 42-year-old male with a history of hemophilia presents to the ER with concerns of abdominal pain, nausea, diarrhea. Patient states his symptoms started Monday. He admits to drinking heavily over the weekend especially Monday night. He states he woke up with abdominal pain on Monday and had nausea with a few episodes of vomiting. Since that time he has not had any additional vomiting but continues having episodes of abdominal pain followed by diarrhea. He states the last 2 days he has had blood on the toilet paper when he wipes after having a bowel movement. He also notes a small amount of blood on the outside of the stool, stool itself is brown. Patient states he is a hemophiliac and takes an injection every other week to keep his levels normal. He states the bleeding stops after wiping. He denies any history of hemorrhoids, he does not have any rectal pain. Patient demonstrates to his mid/right abdomen when complaining of pain. He denies fever or other associated symptoms. Related Data Previous Rx's Medication Instructions Recorded ondansetron 4 mg disintegrating 4 mg PO Q6H PRN nausea and 07/25/23 tablet vomiting #10 tabs Allergies Allergy/AdvReac Type Severity Reaction Status Date / Time clarithromycin [From BIAXIN] Allergy Intermediate I-RASH Verified 04/19/23 10:16 aspirin [ASPIRIN] Allergy Unknown Verified 04/19/23 10:16 Penicillins [PENICILLINS] Allergy Unknown Verified 04/19/23 10:16 PFSH <Dena Jim MD - Last Filed: 07/25/23 14:50> COUNTS INCLUDE 234 BEDS AT THE [facility] Disclaimer: The information contained in this section may have been updated after the patient was seen, as this information can be updated by other users. Medical History (Updated 07/25/23 @ 16:07 by Davin Campos MD) Hemophilia Depression Anxiety Kidney stone Migraine Asthma Social History Smoking Status: Unknown if ever smoked alcohol intake: never substance use type: marijuana current occupational status: unemployed Travel in the last 8 weeks: None housing: house number of children: 0 <Dena Jim MD - Last Filed: 07/25/23 14:50> ROS Obtained: Yes All systems reviewed & no additional complaints except as documented Constitutional Constitutional: Denies chills, Denies fever(s), Denies headache(s) and Denies weakness Eyes Eyes: Denies change in vision ENT Ears, Nose, Mouth, and Throat: Denies dizziness, Denies headache(s), Denies nasal congestion and Denies sore throat Cardiovascular Cardiovascular: Denies chest pain, Denies dyspnea and Denies leg edema Respiratory Respiratory: Denies cough and Denies dyspnea Gastrointestinal Gastrointestingal: Reports abdominal pain, diarrhea, nausea and vomiting; Denies constipation or melena Comments: Bright red blood on stool not in stool Genitourinary Male Genitourinary: Denies difficulty urinating Musculoskeletal Musculoskeletal: Denies arthralgias, Denies myalgias, Denies numbness and Denies tingling Integumentary/Breasts Skin/Breast: Denies change in pigmentation Neurologic Neurologic: Denies dizziness, Denies headache(s), Denies numbness, Denies tingling and Denies weakness Physical Exam <Dena Jim MD - Last Filed: 07/25/23 14:50> General General appearance: alert and in no apparent distress Head Head exam: atraumatic and normocephalic Eye Eye exam: Present PERRL and EOMI ENT ENT exam: Present mucous membranes moist Neck Neck exam: Present normal inspection and full ROM Chest Chest inspection: Present symmetric chest wall rise Respiratory Respiratory exam: Absent respiratory distress or stridor Cardiovascular Cardiovascular exam: Present regular rate and normal rhythm Abdominal Exam Abdominal exam: Present soft and tenderness (Mild right mid abdomen); Absent distention, guarding or rebound Rectal Exam Rectal exam: Present normal inspection and normal rectal tone comment: No hemorrhoid or fissure Extremities Exam Extremities exam: Present full ROM Neurological Exam Neurological exam: Present alert and oriented X3; Absent motor sensory deficit Psychiatric Psychiatric exam: Present normal affect and normal mood Skin Skin exam: Present warm and dry Medical Decision Making <Dena Jim MD - Last Filed: 07/25/23 14:50> Jeffery Vogel Pt receiving controlled substance: No Vital Signs: 07/25/23 13:27 07/25/23 13:31 07/25/23 14:16 Temperature 98.0 F Temperature Source Oral Pulse Rate 64 67 Pulse Rate [Radial] 64 Respiratory Rate 16 Blood Pressure 143/95 H 143/95 H Blood Pressure [Right Arm] 143/95 H Blood Pressure Mean [Right Arm] 111 Blood Pressure Source [Right Arm] Automatic Cuff Blood Pressure Position [Right Arm] Sitting 02 Sat by Pulse Oximetry 96 96 97 Oxygen Delivery Method Room Air Room Air Lab Data Lab Results 07/25/23 13:40: WBC 6.4, RBC 4.90, Hgb 15.6, Hct 45.1, MCV 91.9, MCH 31.9 H, MCHC 34.7, RDW 14.5, Plt Count 325, MPV 7.6, Neut % (Auto) 61.1, Lymph % (Auto) 29.7, [place] % (Auto) 6.9, Eos % (Auto) 1.3, Baso % (Auto) 1.0, Neut # (Auto) 3.9, Lymph # (Auto) 1.9, [place] # (Auto) 0.4, Eos # (Auto) 0.1, Baso # (Auto) 0.1, Sodium 139, Potassium 4.0, Chloride 106, Carbon Dioxide 26, Anion Gap 11.0, BUN 6 L, Creatinine 0.80, Estimated Creat Clear 151, Estimated GFR 106, Est GFR ( Amer) 128, Glucose 121 H, Calcium 8.7, Total Bilirubin 1.3, AST 31, ALT 24, Alkaline Phosphatase 85, Total Protein 6.7, Albumin 4.0, Globulin 2.7, Albumin/Globulin Ratio 1.5 07/25/23 13:40 07/25/23 13:40 Orders (Tests/Meds): ED MEDICATIONS Discontinued Medications Generic Name Dose Route Start Last Admin Trade Name Freq PRN Reason Stop Dose Admin Lactated Ringer's 1,000 mls @ 999 mls/hr 07/25/23 13:56 07/25/23 14:13 Lactated Ringer's 1000 Ml Bag IV 07/25/23 14:56 999 mls/hr .Q1H1M ONE Administration Iopamidol 100 ml 07/25/23 14:34 07/25/23 14:37 Iopamidol-370 (76%);100ml Bottle IV 07/25/23 14:35 100 ml ONCE ONE Administration Ondansetron HCl 4 mg 07/25/23 13:56 07/25/23 14:13 Ondansetron 4mg/2ml Vial IV 07/25/23 13:57 4 mg ONCE ONE Administration Sodium Chloride 50 ml 07/25/23 14:34 07/25/23 14:37 0.9 % Sodium Chloride 50 Ml Vial IV 07/25/23 14:35 50 ml ONCE ONE Administration Sodium Chloride 10 ml 07/25/23 14:34 07/25/23 14:37 Sodium Chloride 0.9% 10ml Syr (Rad Only) IV 07/25/23 14:35 10 ml ONCE ONE Administration ORDERS Category Date Time Status CT angio abdomen pelvis Stat Cat Scan 07/25/23 13:54 Completed CBC w/Auto Diff [Complete Blood Count Auto Diff] Stat Lab 07/25/23 13:40 Completed CMP [Comprehensive Metabolic Panel] Stat Lab 07/25/23 13:40 Completed Medical Decision Narrative: In summary, this 42year old male presents to the emergency department today with concerns of nausea, abdominal pain, diarrhea, blood on stool and with wiping in the setting of hemophilia which is a comorbidity of current condition and increases patient's overall morbidity as well as his risk of significant blood loss from GI bleed. On initial evaluation patient is hemodynamically stable, afebrile, he has mild right mid abdominal tenderness without rebound or guarding, nonacute abdomen. Differential diagnosis includes but is not limited to viral syndrome, I considered anemia, blood loss, patient has not had any hematemesis so I have low concern for upper GI bleed, he has no melanotic stools which is also reassuring against upper GI bleed, I did consider fissure, hemorrhoid, constipation, lower GI bleed.. Based on these concerns, I ordered blood count, basic labs, CT angiography to assess for any brisk intra-abdominal bleeding. Patient received Zofran, LR for treatment. Labs personally reviewed demonstrate No leukocytosis, no anemia, normal platelets, CMP without findings of electrolyte abnormality, good kidney function, no liver dysfunction. CT abdomen pelvis personally interpreted does not demonstrate any obvious brisk GI bleeding, no findings of obstruction. Radiology read pending. Patient handed off to Dr. Campos at physician shift change for further management and disposition pending CT read and oral intake challenge. <Davin Campos MD - Last Filed: 07/25/23 16:10> Vital Signs: 07/25/23 13:27 07/25/23 13:31 07/25/23 14:16 Temperature 98.0 F Temperature Source Oral Pulse Rate 64 67 Pulse Rate [Radial] 64 Respiratory Rate 16 Blood Pressure 143/95 H 143/95 H Blood Pressure [Right Arm] 143/95 H Blood Pressure Mean [Right Arm] 111 Blood Pressure Source [Right Arm] Automatic Cuff Blood Pressure Position [Right Arm] Sitting 02 Sat by Pulse Oximetry 96 96 97 Oxygen Delivery Method Room Air Room Air Lab Data Lab Results 07/25/23 13:40: WBC 6.4, RBC 4.90, Hgb 15.6, Hct 45.1, MCV 91.9, MCH 31.9 H, MCHC 34.7, RDW 14.5, Plt Count 325, MPV 7.6, Neut % (Auto) 61.1, Lymph % (Auto) 29.7, [place] % (Auto) 6.9, Eos % (Auto) 1.3, Baso % (Auto) 1.0, Neut # (Auto) 3.9, Lymph # (Auto) 1.9, [place] # (Auto) 0.4, Eos # (Auto) 0.1, Baso # (Auto) 0.1, Sodium 139, Potassium 4.0, Chloride 106, Carbon Dioxide 26, Anion Gap 11.0, BUN 6 L, Creatinine 0.80, Estimated Creat Clear 151, Estimated GFR 106, Est GFR ( Amer) 128, Glucose 121 H, Calcium 8.7, Total Bilirubin 1.3, AST 31, ALT 24, Alkaline Phosphatase 85, Total Protein 6.7, Albumin 4.0, Globulin 2.7, Albumin/Globulin Ratio 1.5 Orders (Tests/Meds): ED MEDICATIONS Discontinued Medications Generic Name Dose Route Start Last Admin Trade Name Freq PRN Reason Stop Dose Admin Lactated Ringer's 1,000 mls @ 999 mls/hr 07/25/23 13:56 07/25/23 14:13 Lactated Ringer's 1000 Ml Bag IV 07/25/23 14:56 999 mls/hr .Q1H1M ONE Administration Iopamidol 100 ml 07/25/23 14:34 07/25/23 14:37 Iopamidol-370 (76%);100ml Bottle IV 07/25/23 14:35 100 ml ONCE ONE Administration Ondansetron HCl 4 mg 07/25/23 13:56 07/25/23 14:13 Ondansetron 4mg/2ml Vial IV 07/25/23 13:57 4 mg ONCE ONE Administration Sodium Chloride 50 ml 07/25/23 14:34 07/25/23 14:37 0.9 % Sodium Chloride 50 Ml Vial IV 07/25/23 14:35 50 ml ONCE ONE Administration Sodium Chloride 10 ml 07/25/23 14:34 07/25/23 14:37 Sodium Chloride 0.9% 10ml Syr (Rad Only) IV 07/25/23 14:35 10 ml ONCE ONE Administration ORDERS Category Date Time Status CT angio abdomen pelvis Stat Cat Scan 07/25/23 13:54 Completed CBC w/Auto Diff [Complete Blood Count Auto Diff] Stat Lab 07/25/23 13:40 Completed CMP [Comprehensive Metabolic Panel] Stat Lab 07/25/23 13:40 Completed Medical Decision Narrative: In summary, this 42year old male presents to the emergency department today with concerns of nausea, abdominal pain, diarrhea, blood on stool and with wiping in the setting of hemophilia which is a comorbidity of current condition and increases patient's overall morbidity as well as his risk of significant blood loss from GI bleed. On initial evaluation patient is hemodynamically stable, afebrile, he has mild right mid abdominal tenderness without rebound or guarding, nonacute abdomen. Differential diagnosis includes but is not limited to viral syndrome, I considered anemia, blood loss, patient has not had any hematemesis so I have low concern for upper GI bleed, he has no melanotic stools which is also reassuring against upper GI bleed, I did consider fissure, hemorrhoid, constipation, lower GI bleed.. Based on these concerns, I ordered blood count, basic labs, CT angiography to assess for any brisk intra-abdominal bleeding. Patient received Zofran, LR for treatment. Labs personally reviewed demonstrate No leukocytosis, no anemia, normal platelets, CMP without findings of electrolyte abnormality, good kidney function, no liver dysfunction. CT abdomen pelvis personally interpreted does not demonstrate any obvious brisk GI bleeding, no findings of obstruction. Radiology read pending. Patient handed off to Dr. Campos at physician shift change for further management and disposition pending CT read and oral intake challenge. Beth: I assumed primary responsibility for this patient after signout from previous physician. Independent interpretation of the hematologic workup without any acute abnormalities, normal chemistry. CTA of the abdomen and pelvis without acute abnormality other than bowel wall thickening concerning for enterocolitis. No obvious perforation, no evidence of pneumatosis, no free air. Appendix normal. No distribution concerning for vascular ischemia, blood vessels are patent. On my evaluation, patient resting very comfortably. Because patient already taking maintenance injections, I feel he is low risk, especially given history and normal blood counts. Because patient at baseline without signs or symptoms of clinical decompensation, deemed appropriate for discharge. Results were relayed to patient who voiced understanding and were agreeable to outpatient management and follow up. I discussed my clinical impression with patient and answered all questions. At this time, the evidence for any other entities in the differential is insufficient to warrant any further testing or ED observation. This was explained as well. Advisory was given that persistent or worsening symptoms require further evaluation. I confirmed the understanding of this discussion. Critical Care <Dena Jim MD - Last Filed: 07/25/23 14:50> Critical Care Time Critical Care Time: No
[2023-07-25] MEDS: SODIUM CHLORIDE 0.9% 10ML SYR (RAD ONLY) 10 ML IV (14:37)
[2023-07-25] MEDS: 0.9 % SODIUM CHLORIDE 50 ML VIAL IV (14:37)
[2023-07-25] MEDS: IOPAMIDOL-370 (76%);100ML BOTTLE 100 ML IV (14:37)
[2023-07-25 16:18] VITALS: BP 143/95; PULSE 67; RESP 16; TEMP 36.7; O2SAT 97
== END 2023-07-25 16:19 | disposition home or self-care (01) ==
PROVIDERS: Emergency Medicine; Emergency Provider Emergency Medicine
DX: R10.9 Unspecified abdominal pain (principal); R19.7 Diarrhea, unspecified; D66 Hereditary factor VIII deficiency; R11.0 Nausea
CPT/HCPCS: 74174; 80053; 85025; 96361; 96374; 99284; J2405; Q9967

== ENCOUNTER 2023-08-25 16:58 | Emergency (ER) | payer MEDICARE, MEDICAID, SELFPAY ==
[2023-08-25 17:55] VITALS: BP 142/93; PULSE 62; RESP 20; TEMP 36.9; O2SAT 98; BMI 23.6
--- NOTE | 2023-08-25 18:08 | ED_ITS ---
Discharge Plan Disposition Patient Disposition: Home, Self-Care Condition: Good Prescriptions Prescriptions: New prednisone 20 mg tablet 20 mg PO BID 5 Days Qty: 10 0RF doxycycline monohydrate 100 mg tablet 100 mg PO BID 10 Days Qty: 20 0RF [id number]-[id number]-[id number] [Bromfed DM] 2-30-10 mg/5 mL syrup 5 - 10 ml PO Q4H PRN (Reason: Cough) Qty: 240 0RF No Action trazodone 50 mg tablet See Rx Instructions PO HS PRN (Reason: sleep) Qty: 60 1RF Rx Instructions: take 1-2 tablets at bedtime orally at bedtime nightly PRN; Referrals Follow up/Referrals: Provider,Referral, MD [Primary Care Provider] - See instructions Clinical Impressions Clinical Impression: Bronchitis Instructions Patient Instructions: DI for Acute Bronchitis Discharge ED Provider[place] Kellie [place] [facility] [place] General Stated complaint: congestion, cough, lung pain Mode of Arrival: Ambulatory Source of Information: Patient Limitations: No Limitations Time Seen by Provider: 08/25/23 18:35 Description of Symptoms (Recalled from Triage Doc. by RN): PATIENT C/O RIGHT LUNG PAIN, CONGESTION, AND COUGHING THAT STARTED MONDAY HE Symptoms (Recalled from RN notes): Yes Resp Symptoms (Recalled from RN notes): Yes Skin Symptoms (Recalled from RN notes): No MS Symptoms (Recalled from RN notes): No Functional Status (Recalled from RN notes): WNL History of Present Illness Provider Complaint: Cough, congestion, lung pain X 3 days. Nasal congestion. Sore throat. No fever. Onset (ago): day(s) (3) Relieving factors: none Exacerbating factors: none Associated symptoms: denies other symptoms Treatments prior to arrival: none Related Data Previous Rx's Medication Instructions Recorded trazodone 50 mg tablet See Rx Instructions PO HS PRN 08/15/23 sleep #60 tabs zzvpzowlzxkdwak-paucihlhiopbsbi-ED 5 - 10 ml PO Q4H PRN Cough #240 mL 08/25/23 2 mg-30 mg-10 mg/5 mL oral syrup (Bromfed DM) doxycycline monohydrate 100 mg 100 mg PO BID 10 days #20 tabs 08/25/23 tablet prednisone 20 mg tablet 20 mg PO BID 5 days #10 tabs 06/07/24 Allergies Allergy/AdvReac Type Severity Reaction Status Date / Time clarithromycin [From BIAXIN] Allergy Intermediate I-RASH Verified 08/23/23 08:41 aspirin [ASPIRIN] Allergy Unknown Verified 08/23/23 08:41 Penicillins [PENICILLINS] Allergy Unknown Verified 08/23/23 08:41 Worker's Comp Is this a Worker's Comp case?: No [facility] Disclaimer: The information contained in this section may have been updated after the patient was seen, as this information can be updated by other users. Medical History (Updated 08/25/23 @ 18:43 by DIMA Baum) Insomnia Hemophilia Depression Anxiety Kidney stone Migraine Asthma Social History Smoking Status: Unknown if ever smoked alcohol intake: never substance use type: marijuana current occupational status: unemployed Travel in the last 8 weeks: None housing: house number of children: 0 ROS Obtained: Yes All systems reviewed & no additional complaints except as documented Respiratory Respiratory: Reports chest congestion and Reports cough Physical Exam General General appearance: alert and in no apparent distress Head Head exam: atraumatic, normocephalic and normal inspection Eye Eye exam: Present normal appearance, PERRL and EOMI ENT ENT exam: Present normal exam, normal oropharynx, mucous membranes moist, TM's normal bilaterally and normal external ear exam Neck Neck exam: Present normal inspection, full ROM and trachea midline; Absent meningismus or lymphadenopathy Chest Chest inspection: Present normal inspection and symmetric chest wall rise; Absent tenderness Respiratory Respiratory exam: Present normal lung sounds bilaterally and wheezes; Absent respiratory distress Cardiovascular Cardiovascular exam: Present regular rate and normal rhythm; Absent JVD Abdominal Exam Abdominal exam: Present soft and normal bowel sounds; Absent distention, tenderness or guarding Extremities Exam Extremities exam: Present normal inspection, full ROM and normal capillary refill; Absent calf tenderness Back Exam Back exam: Present normal inspection; Absent tenderness Neurological Exam Neurological exam: Present alert and oriented X3 Psychiatric Psychiatric exam: Present normal affect and normal mood Skin Skin exam: Present warm, dry, intact and normal color Lymphatic Lymphatic Findings: no adenopathy Medical Decision Making Jeffery Inquiry Pt receiving controlled substance: No Vital Signs: 08/25/23 17:55 Temperature 98.4 F Temperature Source Oral Pulse Rate [Left Brachial] 62 Respiratory Rate 20 Blood Pressure [Left Arm] 142/93 H Blood Pressure Mean [Left Arm] 109 Blood Pressure Source [Left Arm] Automatic Cuff Blood Pressure Position [Left Arm] Sitting 02 Sat by Pulse Oximetry 98 Oxygen Delivery Method Room Air
[2023-08-25 18:55] VITALS: BP 142/93; PULSE 62; RESP 20; TEMP 36.9; O2SAT 98
== END 2023-08-25 18:59 | disposition home or self-care (01) ==
PROVIDERS: Emergency Provider Physician Assistant
DX: J20.9 Acute bronchitis, unspecified (principal); R07.1 Chest pain on breathing; R07.0 Pain in throat; R09.81 Nasal congestion; R05.9 Cough, unspecified
CPT/HCPCS: 99212; 99214; G0463

== ENCOUNTER 2023-09-02 14:34 | Emergency (ER) | payer MEDICARE, MEDICAID, SELFPAY ==
[2023-09-02 15:00] VITALS: BP 123/75; PULSE 77; RESP 20; TEMP 36.9; O2SAT 97; BMI 23.8
--- NOTE | 2023-09-02 15:10 | EXP.UTC ---
Discharge Plan Disposition Patient Disposition: Home, Self-Care Condition: Good Prescriptions Prescriptions: New benzonatate 100 mg capsule 100 mg PO TIDP PRN (Reason: Cough) Qty: 30 0RF methylprednisolone 4 mg Tablets,Dose Pack 4 mg PO DIRECTED 6 Days Qty: 21 0RF Rx Instructions: Take 1 pack as directed for 6 days No Action trazodone 50 mg tablet See Rx Instructions PO HS PRN (Reason: sleep) Qty: 60 1RF Rx Instructions: take 1-2 tablets at bedtime orally at bedtime nightly PRN; albuterol sulfate [Ventolin HFA] 90 mcg/actuation HFA aerosol inhaler 2 puff inhalation Q4-6H PRN (Reason: shortness of breath or wheezing) 30 Days Qty: 6.7 5RF Rx Instructions: administer with spacer doxycycline monohydrate 100 mg tablet 100 mg PO BID Patient Comments: 100 MG orally twice a DAY FOR 10 DAYS Referrals Follow up/Referrals: Provider,Referral, MD [Primary Care Provider] - See instructions Activity Restrictions/Add. Instructions Additional Instructions/Restrictions: Drink plenty of fluids. Take tylenol or ibuprofen for pain or fever. Take the medications as directed. Follow up with your regular doctor. GO TO THE ER FOR ANY WORSENING SYMPTOMS Discharge ED Provider: Troy Suárez [facility] [place] General Stated complaint: SOA, tightness in R lung area, cough Time Seen by Provider: 09/02/23 15:10 History of Present Illness Provider Complaint: He states that for the past 4 days he has had worsening sinus and chest congestion. He denies any fever. Related Data Home Medications Medication Instructions Recorded Confirmed doxycycline monohydrate 100 mg 100 mg PO BID 09/02/23 09/02/23 tablet Previous Rx's Medication Instructions Recorded trazodone 50 mg tablet See Rx Instructions PO HS PRN 08/15/23 sleep #60 tabs albuterol sulfate 90 mcg/actuation 2 puff inhalation Q4-6H PRN 08/25/23 aerosol inhaler (Ventolin HFA) shortness of breath or wheezing 30 days #6.7 grams benzonatate 100 mg capsule 100 mg PO TIDP PRN Cough #30 caps 09/02/23 methylprednisolone 4 mg tablets in 4 mg PO DIRECTED 6 days #21 tabs 09/02/23 a dose pack Allergies Allergy/AdvReac Type Severity Reaction Status Date / Time clarithromycin [From BIAXIN] Allergy Intermediate I-RASH Verified 09/02/23 15:17 aspirin [ASPIRIN] Allergy Unknown Verified 09/02/23 15:17 Penicillins [PENICILLINS] Allergy Unknown Verified 09/02/23 15:17 [facility] Disclaimer: The information contained in this section may have been updated after the patient was seen, as this information can be updated by other users. Medical History Insomnia Hemophilia Depression Anxiety Kidney stone Migraine Asthma Social History Smoking Status: Unknown if ever smoked alcohol intake: never substance use type: marijuana current occupational status: unemployed Travel in the last 8 weeks: None housing: house number of children: 0 ROS Obtained: Yes All systems reviewed & no additional complaints except as documented Constitutional Constitutional: Reports poor appetite Eyes Eyes: Reports system reviewed and no additional complaints, except as documented ENT Ears, Nose, Mouth, and Throat: Reports as per HPI Cardiovascular Cardiovascular: Reports system reviewed and no additional complaints, except as documented and Denies chest pain Respiratory Respiratory: Denies shortness of breath, Reports chest congestion, Reports cough, Denies stridor and Denies wheezing Gastrointestinal Gastrointestingal: Reports system reviewed and no additional complaints, except as documented; Denies abdominal pain, diarrhea or vomiting Musculoskeletal Musculoskeletal: Reports system reviewed and no additional complaints, except as documented and Denies arthralgias Integumentary/Breasts Skin/Breast: Reports system reviewed and no additional complaints, except as documented and Denies rash Neurologic Neurologic: Denies paresthesias Allergic/Immunologic Allergic/Immunologic: Denies wheezing Physical Exam General General appearance: alert and in no apparent distress Head Head exam: atraumatic, normocephalic and normal inspection Eye Eye exam: Present normal appearance, PERRL and EOMI ENT ENT exam: Present normal exam, normal oropharynx, mucous membranes moist, TM's normal bilaterally and normal external ear exam Neck Neck exam: Present normal inspection, full ROM and trachea midline; Absent meningismus or lymphadenopathy Chest Chest inspection: Present normal inspection and symmetric chest wall rise; Absent tenderness Respiratory Respiratory exam: Present normal lung sounds bilaterally; Absent respiratory distress Cardiovascular Cardiovascular exam: Present regular rate and normal rhythm; Absent JVD Abdominal Exam Abdominal exam: Present soft and normal bowel sounds; Absent distention, tenderness or guarding Extremities Exam Extremities exam: Present normal inspection, full ROM and normal capillary refill; Absent calf tenderness Back Exam Back exam: Present normal inspection; Absent tenderness Neurological Exam Neurological exam: Present alert and oriented X3 Psychiatric Psychiatric exam: Present normal affect and normal mood Skin Skin exam: Present warm, dry, intact and normal color Lymphatic Lymphatic Findings: no adenopathy Medical Decision Making Medical Records Medical records reviewed: No I reviewed the patient's medical records. Jeffery Inquiry Pt receiving controlled substance: No
[2023-09-02 16:07] VITALS: BP 123/75; PULSE 77; RESP 18; TEMP 36.9; O2SAT 97
== END 2023-09-02 16:07 | disposition home or self-care (01) ==
PROVIDERS: Emergency Provider Nurse Practitioner Family
DX: R05.9 Cough, unspecified (principal); R09.81 Nasal congestion
CPT/HCPCS: 99212; 99214; G0463

== ENCOUNTER 2024-03-31 11:32 | Emergency (ER) | payer MEDICARE, MEDICAID, SELFPAY ==
[2024-03-31 11:46] VITALS: BP 123/86; PULSE 72; RESP 20; TEMP 36.7; O2SAT 99; BMI 23.8
--- NOTE | 2024-03-31 11:51 | ED_ITS ---
Discharge Plan Disposition Patient Disposition: Home, Self-Care Condition: Good Prescriptions Prescriptions: New benzonatate 100 mg capsule 100 mg PO TIDP PRN (Reason: Cough) Qty: 30 0RF methylprednisolone 4 mg Tablets,Dose Pack 4 mg PO DIRECTED 6 Days Qty: 21 0RF Rx Instructions: Take 1 pack as directed for 6 days doxycycline monohydrate 100 mg tablet 100 mg PO Q12 10 Days Qty: 20 0RF No Action trazodone 50 mg tablet See Rx Instructions PO HS PRN (Reason: sleep) Qty: 60 1RF Rx Instructions: take 1-2 tablets at bedtime orally at bedtime nightly PRN; albuterol sulfate [Ventolin HFA] 90 mcg/actuation HFA aerosol inhaler 2 puff inhalation Q4-6H PRN (Reason: shortness of breath or wheezing) 30 Days Qty: 6.7 5RF Rx Instructions: administer with spacer doxycycline monohydrate 100 mg tablet 100 mg PO BID Patient Comments: 100 MG orally twice a DAY FOR 10 DAYS benzonatate 100 mg capsule 100 mg PO TIDP PRN (Reason: Cough) Qty: 30 0RF methylprednisolone 4 mg Tablets,Dose Pack 4 mg PO DIRECTED 6 Days Qty: 21 0RF Rx Instructions: Take 1 pack as directed for 6 days Referrals Follow up/Referrals: Provider,Referral, MD [Primary Care Provider] - See instructions Activity Restrictions/Add. Instructions Additional Instructions/Restrictions: Drink plenty of fluids. Take tylenol or ibuprofen for pain or fever. Take the medications as directed. Follow up with your regular doctor. GO TO THE ER FOR ANY WORSENING SYMPTOMS Clinical Impressions Clinical Impression: Acute bronchitis, Acute sinusitis Instructions Patient Instructions: Sinusitis, DI for Sinusitis Print Language Print Language: Irish Discharge ED Provider: Troy Suárez [facility] [place] HPI General Stated complaint: congestion painful cough Mode of Arrival: Ambulatory Source of Information: Patient Time Seen by Provider: 03/31/24 11:50 Description of Symptoms (Recalled from Triage Doc. by RN): CONGESTION, HURTS IN LEFT SIDE OF CHEST FROM COUGHING HEENT Symptoms (Recalled from RN notes): No Resp Symptoms (Recalled from RN notes): Yes Skin Symptoms (Recalled from RN notes): No MS Symptoms (Recalled from RN notes): No Functional Status (Recalled from RN notes): WNL History of Present Illness Provider Complaint: He states that for the past 1 week he has had sinus congestion and chest congestion. He states that his cough has continued to get worse. He denies any shortness of breath. Related Data Home Medications ?Medication ?Instructions ?Recorded ?Confirmed doxycycline monohydrate 100 mg 100 mg PO BID 09/02/23 11/27/23 tablet Previous Rx's ?Medication ?Instructions ?Recorded albuterol sulfate 90 mcg/actuation 2 puff inhalation Q4-6H PRN 08/25/23 aerosol inhaler (Ventolin HFA) shortness of breath or wheezing 30 days #6.7 grams benzonatate 100 mg capsule 100 mg PO TIDP PRN Cough #30 caps 09/02/23 methylprednisolone 4 mg tablets in 4 mg PO DIRECTED 6 days #21 tabs 09/02/23 a dose pack trazodone 50 mg tablet See Rx Instructions PO HS PRN 11/14/23 sleep #60 tabs benzonatate 100 mg capsule 100 mg PO TIDP PRN Cough #30 caps 03/31/24 doxycycline monohydrate 100 mg 100 mg PO Q12 10 days #20 tabs 03/31/24 tablet methylprednisolone 4 mg tablets in 4 mg PO DIRECTED 6 days #21 tabs 03/31/24 a dose pack Allergies Allergy/AdvReac Type Severity Reaction Status Date / Time clarithromycin (From BIAXIN) Allergy Intermediate I-RASH Verified 11/27/23 12:29 aspirin (ASPIRIN) Allergy Unknown Verified 11/27/23 12:29 Penicillins (PENICILLINS) Allergy Unknown Verified 11/27/23 12:29 Worker's Comp Is this a Worker's Comp case?: No [facility] Disclaimer: The information contained in this section may have been updated after the patient was seen, as this information can be updated by other users. Medical History (Updated 03/31/24 @ 12:32 by Troy Suárez APRN) Insomnia Hemophilia Depression Anxiety Kidney stone Migraine Asthma Social History Smoking Status: Unknown if ever smoked alcohol intake: never substance use type: marijuana current occupational status: unemployed Travel in the last 8 weeks: None housing: house number of children: 0 Have you lived/traveled outside US in past 30 days?: No Contact w/someone who lives/traveled outside US past 30 days?: No Exposure to someone with infectious disease in past 14 days?: No Do you have a fever (greater than 100.4 F or 38 C)?: No Have you tested positive for COVID-19: No Exposed to someone with COVID-19 in past 14 days?: No Do you have a sore throat?: No Do you have a cough?: Yes Do you have any weakness?: No Do you have any diarrhea?: No Are you experiencing any unusual bleeding?: No Do you have any muscle aches/pain?: No Do you have any abdominal pain?: No Are you experiencing loss of taste or smell?: No ROS Obtained: Yes All systems reviewed & no additional complaints except as documented Constitutional Constitutional: Reports poor appetite Eyes Eyes: Reports system reviewed and no additional complaints, except as documented ENT Ears, Nose, Mouth, and Throat: Reports as per HPI Cardiovascular Cardiovascular: Reports system reviewed and no additional complaints, except as documented and Denies chest pain Respiratory Respiratory: Denies shortness of breath, Denies chest congestion, Reports cough, Denies stridor and Denies wheezing Gastrointestinal Gastrointestingal: Reports system reviewed and no additional complaints, except as documented; Denies abdominal pain, diarrhea or vomiting Musculoskeletal Musculoskeletal: Reports system reviewed and no additional complaints, except as documented and Denies arthralgias Integumentary/Breasts Skin/Breast: Reports system reviewed and no additional complaints, except as documented and Denies rash Neurologic Neurologic: Denies paresthesias Allergic/Immunologic Allergic/Immunologic: Denies wheezing Physical Exam General General appearance: alert and in no apparent distress Eye Eye exam: Present normal appearance, PERRL and EOMI ENT ENT exam: Present mucous membranes moist and normal external ear exam Expanded ENT Exam External ear exam: Present normal external inspection TM/Canal exam: Bilateral TM: erythema and bulging Nose exam: Absent sinus tenderness Nasal speculum exam: Bilateral: normal Mouth exam: Present normal external inspection; Absent drooling Teeth exam: Present normal inspection Throat exam: Present tonsillar erythema and tonsillomegaly Neck Neck exam: Present normal inspection, full ROM and trachea midline; Absent tenderness, lymphadenopathy or thyromegaly Chest Chest inspection: Present normal inspection and symmetric chest wall rise; Absent tenderness or rash Respiratory Respiratory exam: Present normal lung sounds bilaterally; Absent respiratory distress, wheezes, stridor or accessory muscle use Cardiovascular Cardiovascular exam: Present regular rate, normal rhythm and normal heart sounds Abdominal Exam Abdominal exam: Present soft; Absent distention, tenderness, guarding, rebound or rigidity Extremities Exam Extremities exam: Present normal inspection, full ROM and normal capillary refill; Absent tenderness or calf tenderness Back Exam Back exam: Present normal inspection and full ROM; Absent tenderness Neurological Exam Neurological exam: Present alert and oriented X3 Psychiatric Psychiatric exam: Present normal affect and normal mood Skin Skin exam: Present warm, dry, intact and normal color Lymphatic Lymphatic Findings: no adenopathy Medical Decision Making Medical Records Medical records reviewed: No I reviewed the patient's medical records. Screening: Per USPSTF and CDC recommendations, given the prevalence of disease in our region, it is our hospital?s policy to screen for HIV and viral Hepatitis for all patients aged 18 and over and those with ongoing risk factors. Jeffery Inquiry Pt receiving controlled substance: No Vital Signs: 03/31/24 11:46 Temperature 98.0 F Temperature Source Oral Pulse Rate [Left Radial] 72 Respiratory Rate 20 Blood Pressure [Left Arm] 123/86 Blood Pressure Mean [Left Arm] 98 02 Sat by Pulse Oximetry 99 Lab Data Lab results reviewed: Yes I reviewed the patient's lab results.
[2024-03-31 12:32] VITALS: BP 123/86; PULSE 72; RESP 20; TEMP 36.7
== END 2024-03-31 12:36 | disposition home or self-care (01) ==
PROVIDERS: Emergency Provider Nurse Practitioner Family
DX: J01.90 Acute sinusitis, unspecified (principal); J20.9 Acute bronchitis, unspecified
CPT/HCPCS: 99212; G0381

== ENCOUNTER 2024-04-18 09:27 | Emergency (ER) | payer MEDICARE, MEDICAID, SELFPAY ==
[2024-04-18 09:41] VITALS: BP 126/90; PULSE 83; RESP 18; TEMP 37.9; O2SAT 97; BMI 24.0
[2024-04-18 09:49] LABS: UTC Influenza A Antigen Negative (Negative); UTC Influenza B Antigen Negative (Negative)
--- NOTE | 2024-04-18 10:00 | EXP.UTC ---
Discharge Plan Disposition Patient Disposition: Home, Self-Care Condition: Good Prescriptions Prescriptions: New benzonatate 100 mg capsule 100 mg PO TIDP PRN (Reason: Cough) Qty: 30 0RF ondansetron 4 mg Tablet,Disintegrating 4 mg PO Q8H PRN (Reason: Nausea) Qty: 12 0RF oseltamivir [Tamiflu] 75 mg capsule 75 mg PO BID 5 Days Qty: 10 0RF Referrals Follow up/Referrals: Provider,Referral, MD [Primary Care Provider] - See instructions Activity Restrictions/Add. Instructions Additional Instructions/Restrictions: Drink plenty of fluids. Take tylenol for pain or fever. Take the medications as directed. Follow up with your regular doctor. GO TO THE ER FOR ANY WORSENING SYMPTOMS Clinical Impressions Clinical Impression: Influenza A Instructions Patient Instructions: DI for Viral Syndrome Print Language Print Language: Afghan Discharge ED Provider: Troy Suárez [facility] [place] General Stated complaint: headache, chest tightness Mode of Arrival: Ambulatory Source of Information: Patient Time Seen by Provider: 04/18/24 10:00 Description of Symptoms (Recalled from Triage Doc. by RN): SIDDIQUI, TIGHTNESS IN CHEST HEENT Symptoms (Recalled from RN notes): Yes Resp Symptoms (Recalled from RN notes): Yes Skin Symptoms (Recalled from RN notes): No MS Symptoms (Recalled from RN notes): No Functional Status (Recalled from RN notes): WNL History of Present Illness Provider Complaint: He states that for the past 1 day he has had sore throat, chilling, fever, and body aches. He states that he feels very bad. He is a type 1 diabetic. Related Data Previous Rx's ?Medication ?Instructions ?Recorded benzonatate 100 mg capsule 100 mg PO TIDP PRN Cough #30 caps 04/18/24 ondansetron 4 mg disintegrating 4 mg PO Q8H PRN Nausea #12 tabs 04/18/24 tablet oseltamivir 75 mg capsule (Tamiflu) 75 mg PO BID 5 days #10 caps 04/18/24 Allergies Allergy/AdvReac Type Severity Reaction Status Date / Time clarithromycin (From BIAXIN) Allergy Intermediate I-RASH Verified 11/27/23 12:29 aspirin (ASPIRIN) Allergy Unknown Verified 11/27/23 12:29 Penicillins (PENICILLINS) Allergy Unknown Verified 11/27/23 12:29 Worker's Comp Is this a Worker's Comp case?: No [facility] Disclaimer: The information contained in this section may have been updated after the patient was seen, as this information can be updated by other users. Medical History (Updated 04/18/24 @ 15:46 by Troy Suárez APRN) Insomnia Hemophilia Depression Anxiety Kidney stone Migraine Asthma Social History Smoking Status: Unknown if ever smoked alcohol intake: never substance use type: marijuana current occupational status: unemployed Travel in the last 8 weeks: None housing: house number of children: 0 Have you lived/traveled outside US in past 30 days?: No Contact w/someone who lives/traveled outside US past 30 days?: No Exposure to someone with infectious disease in past 14 days?: No Do you have a fever (greater than 100.4 F or 38 C)?: No Have you tested positive for COVID-19: No Exposed to someone with COVID-19 in past 14 days?: No Do you have a sore throat?: No Do you have a cough?: No Do you have any weakness?: No Do you have any diarrhea?: No Are you experiencing any unusual bleeding?: No Do you have any muscle aches/pain?: No Do you have any abdominal pain?: No Are you experiencing loss of taste or smell?: No ROS Obtained: Yes All systems reviewed & no additional complaints except as documented Constitutional Constitutional: Reports chills and Reports fever(s) Eyes Eyes: Denies eye discharge ENT Ears, Nose, Mouth, and Throat: Reports as per HPI Cardiovascular Cardiovascular: Denies chest pain Respiratory Respiratory: Denies chest congestion and Reports cough Gastrointestinal Gastrointestingal: Reports nausea; Denies abdominal pain, constipation, cramping, diarrhea or vomiting Musculoskeletal Musculoskeletal: Denies arthralgias Integumentary/Breasts Skin/Breast: Denies rash Neurologic Neurologic: Denies paresthesias Physical Exam General General appearance: alert and in no apparent distress Head Head exam: atraumatic, normocephalic and normal inspection Eye Eye exam: Present normal appearance, PERRL and EOMI ENT ENT exam: Present normal exam, normal oropharynx, mucous membranes moist, TM's normal bilaterally and normal external ear exam Neck Neck exam: Present normal inspection, full ROM and trachea midline; Absent meningismus or lymphadenopathy Chest Chest inspection: Present normal inspection and symmetric chest wall rise; Absent tenderness Respiratory Respiratory exam: Present normal lung sounds bilaterally; Absent respiratory distress Cardiovascular Cardiovascular exam: Present regular rate and normal rhythm; Absent JVD Abdominal Exam Abdominal exam: Present soft and normal bowel sounds; Absent distention, tenderness or guarding Extremities Exam Extremities exam: Present normal inspection, full ROM and normal capillary refill; Absent calf tenderness Back Exam Back exam: Present normal inspection; Absent tenderness Neurological Exam Neurological exam: Present alert and oriented X3 Psychiatric Psychiatric exam: Present normal affect and normal mood Skin Skin exam: Present warm, dry, intact and normal color Lymphatic Lymphatic Findings: no adenopathy Medical Decision Making Medical Records Medical records reviewed: No I reviewed the patient's medical records. Screening: Per USPSTF and CDC recommendations, given the prevalence of disease in our region, it is our hospital?s policy to screen for HIV and viral Hepatitis for all patients aged 18 and over and those with ongoing risk factors. Jeffery Inquiry Pt receiving controlled substance: No Vital Signs: 04/18/24 09:41 Temperature 100.2 F H Temperature Source Oral Pulse Rate [Left Radial] 83 Respiratory Rate 18 Blood Pressure [Left Arm] 126/90 Blood Pressure Mean [Left Arm] 102 02 Sat by Pulse Oximetry 97 Lab Data Lab results reviewed: Yes I reviewed the patient's lab results. Lab Results 04/18/24 09:45: Influenza Type A Ag Negative, Influenza Type B Ag Negative
--- NOTE | 2024-04-18 10:33 | XR_ITS ---
FINAL REPORT TECHNIQUE: Chest PA & Lateral CLINICAL HISTORY: cough, congestion, fever, chest tightness COMPARISON: 01/01/2022 FINDINGS: 2 views of the chest were performed. The heart size is normal. The mediastinum is within normal limits. There is no acute cardiopulmonary process. There are no pleural effusions. There is no pneumothorax. The bony thorax appears intact. IMPRESSION: No acute cardiopulmonary process. Reviewed, Interpreted and Dictated by Neno Bloom MD Transcribed by Karina Sevilla Authenticated and [facility]
[2024-04-18 11:05] VITALS: BP 126/90; PULSE 83; RESP 18; TEMP 37.9
[2024-04-18 11:16] LABS: Coronavirus 19, PCR Not Detected (NotDetected); Influenza B, PCR Not Detected (NotDetected)
[2024-04-18 12:34] LABS: Influenza A, PCR Detected (NotDetected)
== END 2024-04-18 11:05 | disposition home or self-care (01) ==
PROVIDERS: Emergency Provider Nurse Practitioner Family
DX: J09.X2 Influenza due to identified novel influenza A virus with other respiratory manifestations (principal)
CPT/HCPCS: 71046; 87636; 87804; 99212; G0381

== ENCOUNTER 2024-09-04 01:51 | Emergency (ER) | payer MEDICARE, MEDICAID, SELFPAY ==
--- OUTSIDE RECORDS SUMMARY | 2024-08-14 11:00 | XMS_ITS | Encounter Summary ---
Author Organization Healthcare Address [address] [place] [address] Care Team Providers Care Electro Mechanical Solar Technician Name Role Phone StormEllen Annika ADAN Primary Care Provider [phone] Encounter Details Date Type Department Care Team (Late st Contact Info) Description 08/14/2024 11:00 AM EDT Office Visit [facility] [address] [place] [address] Madison Sotelo, DMD [address] [place] [address] Encounter for dental examination (Primary Dx) Social [...] How often do you attend chur or taoism services? Never 09/13/2023 Do you belong to any clubs o r organizations such as protestant groups, unions, fraternal or athletic groups, or [...] Recorded Patient Health Questionnaire-2 Score 0 01/04/2024 [facility] - Occupational Stress Questionnaire Answer Date Recorded [...] place to sleep or slept in a custodial (including now)? No 09/13/2023 Safety and Environment [...] 08/14/2024 11:00 AM EDT Adult Dentistry - [facility] Subjective: 43 y.o. male presents to clinic for periodic exam appointment adult prophy , and treatment planning for sensitivity of #21 Objective: Medical and dental hx reviewed. No changes Vitals: Visit Vitals BP (!) 140/86 Pulse 56 Assessment: Defective yarsanism: #21 EOE: WNL- (No facial asymmetry, swelling, LAD, pathology) Dental Soft Tissue Exam -No pathology noted Periodontal Exam- All pockets within 1-4mm. Moderate plaque and calculus buildup. Fair oral hygiene. Radiographic Interp: Film Ordered: BW/PA Date ordered: 08/14/24 Radiographic Indications: Sensitivity #21 Radiographic Observations Maxillofacial Structures (including bone, sinus, TMJ): Normal bone trabeculation Dentition: DO amalgam yarsanism #21 with underfill at margin, MOD amalgam yarsanism #20, RCT #12, #13 composite MOD, #14 MO amalgam, missing #17,18,19. Marginal Periodontium:moderate bone loss Apical Periodontium: normal bone trabeculation. Mental foramen seen in PA slightly distal to #20 apex Other: N/A Radiographic Interpretation/Dx: restorations, root canal, missing teeth Plan: Today: periodic exam appointment adult prophy and treatment planning #21 Future visits: #21DO yarsanism Tx-Rendered today: Patient initially came in for sensitivity between #20 and #21. Patient states it is sensitive when he eats. Radiograph shows open margin on #21. Told patient this could be causing his sensitivity, sowe can replace current yarsanism to see if it helps. Patient agreed. [...] patient will come in to replace #21DO yarsanism. Patient then wants to start mandibular RPD process. Preauth was sent in and approved in October, but another one has to be sent in since it has been over 6 months. NV: RTC for visit 1: replace #21 DO amalgam yarsanism. Visit 2: start RPD process Cosigned by [...] Care Team (Late st Contact Info) Description 09/19/2024 9:45 AM EDT Office Visit [facility] Adult [facility]istry [address] [place] [address] Janiya Santoro [address] [place], [place] [phone] Scheduled Orders Name Type Priority Associated Diagnoses Orde r Schedule 21 DO 21 DO AMALGAM - 2 SURFACES, PRIMARY OR PERMANENT Dental Routine [address] arting 08/14/2024 documented as of this encounter Procedures Procedure [...] documented as of this encounter Care Teams Electro Mechanical Solar Technician Relationship Specialty Start Date End Date Ellen Inman APRN [address] [place] [address] PCP - General Family Medicine 09/13/23 documented as of this encounter
[2024-09-04] VITALS (7 sets, daily range): BP systolic 119–162; BP diastolic 78–92; PULSE 53–58; RESP 14–20; TEMP 36.6–36.7; O2SAT 96–99; BMI 23.8
--- NOTE | 2024-09-04 01:51 | ECG_ITS ---
APPROVED REPORT Exam: Resting ECG HR:55 bpm ECG Measurements Heart Rate 55 AXES VT 134 P 20 QRSd 107 QRS -27 QT 415 T 32 QTc 403 Conclusion SINUS BRADYCARDIA BORDERLINE LEFT AXIS DEVIATION [QRS AXIS < -20] No STEMI Electronically signed by : SALLY THAYER, 09/04/2024 07:14:19
--- NOTE | 2024-09-04 01:54 | XR_ITS ---
PROCEDURE INFORMATION: Exam: XR Chest Exam date and time: 09/04/2024 1:56 AM Age: 43 years old Clinical indication: Pain; Chest pressure; Additional info: Central chest pain TECHNIQUE: Imaging protocol: Radiologic exam of the chest. Views: 2 views. COMPARISON: CR XR CHEST 2V 04/18/2024 10:29 AM FINDINGS: Lungs: Unremarkable. No consolidation. Pleural spaces: Unremarkable. No pleural effusion. No pneumothorax. Heart/Mediastinum: Unremarkable. No cardiomegaly. Bones/joints: Unremarkable. IMPRESSION: No acute findings.
--- NOTE | 2024-09-04 01:57 | PC.NURSE ---
Pt awake alert and oriented Skin pink warm and dry Resp full and easy Speech clear and appropriate Pt in SB per continuous heart monitor.
[2024-09-04 02:05] LABS: Basophils # 0.1 K/mm3 (0-0.2); Basophils % 0.9 % (0.1-2.0); Eosinophils # 0.2 Kmm3 (0.0-0.4); Eosinophils % 2.1 % (0.1-12.0); Hematocrit 42.3 % (42.0-52.0); Hemoglobin 15.3 g/dL (14.1-18.0); Immature Granulocytes # 0.02 10^3uL; Immature Granulocytes % 0.2 %; Lymphocytes # 3.2 K/mm3 (0.7-4.5); Lymphocytes % 35.1 % (10-50); Mean Corpuscular HGB Conc 36.2 g/dL (31.8-35.4); Mean Corpuscular Hemoglobin 31.9 pg (27.0-31.2); Mean Corpuscular Volume 88.3 fl (80-94); Mean Platelet Volume 9.5 fl (7.4-10.4); Monocytes # 0.7 K/mm3 (0.1-1.0); Monocytes % 7.7 % (1.7-9.3); Neutrophils # 4.9 K/mm3 (1.8-7.8); Nucleated Red Blood Cells # 0 10^3/uL; Nucleated Red Blood Cells % 0 %; Platelet Count 410 K/mm3 (142-424); Red Blood Count 4.79 M/mm3 (4.60-6.20); Red Cell Distribution Width 13.3 % (11.5-17.5)
--- NOTE | 2024-09-04 02:06 | PC.NURSE ---
Pt to xray via wheelchair
[2024-09-04] MEDS: BELLADONNA ALKALOIDS 60 ML ML PO (02:08)
--- OUTSIDE RECORDS SUMMARY | 2024-09-04 02:12 | XMS_ITS | Clinical Summary ---
Author Organization [facility] Address [address] [place] [address] Care Team Providers Care Facing Cutting Machine Operator Name Role Phone Ellen Inman LOCO Primary Care Provider [phone] Allergies Active Allergy Reactions Criticality Noted Date Comments Aspirin Unknown - Patient states they do not know rxn details Low 08/23/2005 AVOID ASPIRIN or aspirin containing products due to effect on platelets in a patient with a bleeding disorder. Aspirin-Caffeine Unknown - Patient states they do not know rxn details Low 05/30/2014 Clarithromycin Unknown - Patient states they do not know rxn details Low 12/29/2008 Erythromycin Unknown - Patient states they do not know rxn details Low 12/29/2008 Penicillins Unknown - Patient states they do not know rxn details Low 08/23/2005 Medications Fluticasone Furoate-Vilanter ol (Breo Ellipta) 100-25 MCG/ACT aerosol powderIndication s:Moderate persistent asthma without complication Inhale 1 puff 1 (one) time each day. 28 each 4 Active Additional Information Patient not taking.Reported on 06/18/2024 hydrOXYzine HCl (Atarax) 25 MG tabletIndication s:Insomnia, unspecified type Take 1 tablet (25 mg) by mouth at night if needed (sleep). 30 tablet 2 4 Active Additional Information Patient not taking.Reported on 06/18/2024 tranexamic acid (Lysteda) 650 MG tablet tabletIndication s:Severe hemophilia A (CMS/HCC) Take 2 tablets (1,300 mg) by mouth 3 (three) times a day if needed (take for 3-5 days after dental extraction procedure.). 30 tablet 4 Active traZODone (Desyrel) 50 MG tablet Take 1 tablet (50 mg) by mouth every night. Take 1-2 tablets at night as needed 4 Active meloxicam (Mobic) 15 MG tablet Take 1 tablet by mouth daily. 30 tablet 3 5 Active Emicizumab-kxwh (Hemlibra) 150 MG/ML injectionIndicat ions:Hemophilia A ([facility]) Inject 1.8 mL under the skin every 14 (fourteen) days. For secondary prophylaxis. Please include all supplies. 2 each 11 5 Active antihemophilic factor rAHF-PAF (Xyntha Solofuse) 2000 units kitIndications:H emophilia A ([facility]) INFUSE 4000 UNITS ([id number]) SLOW IV PUSH DIRECTED BY [facility] FOR BREAKTHROUGH BLEEDING/ PER PROCEDURALLY WHILE ON HEMLIBRA PROPHYLAXIS. 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 Elbow pain 12/22/2016 Foot pain 06/04/2014 Arthritis 05/30/2014 Ankle arthritis 04/29/2014 Encounters Date Type Department Care Team Description 08/14/2024 11:00 AM EDT Office Visit [facility] Adult Dentistry [address] [place] [address] Madison Sotelo, SHEFALI Encounter for dental examination (Primary Dx) 08/14/2024 Travel 07/31/2024 [facility] [address] [place] [address] [place] [address] Nisha Hendrickson APRN, DNP Hemophilia A ([facility]) 06/18/2024 12:06 PM EDT - 06/18/2024 11:59 PM EDT Hospital Encounter [facility] Pediatric Hemophilia [address]; [address] [place] [address] Nisha Hendrickson APRN, DNP Hemophilia A ([facility]) Discharge Disposition: Home or Self Care 06/18/2024 Travel from Last 3 Months Immunizations Immunization Administration Dates Next Due Influenza, Unspecified 01/13/2010 Influenza, seasonal, injectable 01/06/2012,01/17 Pneumococcal, Unspecified 01/13/2010 Tdap 09/30/2014,04/15/2014 Family History Medical History Relation Name Comments Hemophilia Maternal Grandfather Genetic Disease Carrier Mother Lung cancer Mother Relation Name Status Comments Maternal Grandfather Mother Social History Tobacco Use Types Packs/Day Years Used Date Smoking Tobacco: Never Passive Smoke Exposure: Current Smokeless Tobacco: Never Tobacco Cessation:Counseling Given: Not Answered Alcohol Use Standard Drinks/Week Comments No 0 [...] How often do you attend chur or episcopal services? Never 09/13/2023 Do you belong to any clubs o r organizations such as jew groups, unions, fraternal or athletic groups, or [...] Recorded Patient Health Questionnaire-2 Score 0 01/04/2024 [facility] - Occupational Stress Questionnaire Answer Date Recorded [...] money to buy more. Often true 09/13/19 Within the past 12 months, t he [...] place to sleep or slept in a senior care (including now)? No 09/13/2023 Safety and Environment [...] Recorded In the past 12 months has [employer], gas, oil, or water [employer] threatened to shut off services in your home? No 09/13/2023 Sex and Gender Information Value Date Recorded Sex Assigned at Not on file Legal Sex Male 8:02 PM EDT Gender Identity Not on file Sexual Orientation Not on file Last Filed Vital Signs Vital Sign Reading Time Taken Comments Blood Pressure 140/86 08/14/2024 10:57 AM EDT Pulse 56 08/14/2024 10:57 AM EDT Temperature 37.3 C (99.2 F) 01/04/2024 2:05 PM EDT Respiratory Rate - - Oxygen Saturation 99% 01/04/2024 2:05 PM EDT Inhaled Oxygen Concentration - - Weight 88 kg (194 lb 0.1 oz) 06/18/2024 12:30 PM EDT Height 193 cm (6' 4 ) 06/18/2024 12:30 PM EDT Body Mass Index 23.62 06/18/2024 12:30 PM EDT Plan of Treatment Upcoming Encounters Date Type Department Care Team (Late st Contact Info) Description 09/19/2024 9:45 AM EDT Office Visit [facility] [address] [place] [address] Janiya Santoro [address] [place] [address] Health Maintenance Due Date Last Done Comments [facility]-Medicare Annual Wellness (AWV) 1980 [id number] Vaccine (#1) 1985 [facility]-Varicella Vaccines (1 of 2 - 13+ 2-dose series) 1993 HPV Vaccines (1 - Male 3-dose series) 10/10/1995 [facility]-Hepatitis B Vaccines (1 of 3 - 19+ 3-dose series) 10/10/1999 [facility]-Pneumococcal Vaccine: Pediatrics (0 to 5 Years) and At-Risk Patients (6 to 49 Years) (1 of 2 - PCV) 10/10/1999 01/13/2010 [facility]- SDOH Screenings 03/14/2024 [facility]-Adult SDOH Screenings 03/14/2024 09/13/2023 [facility]-/Child/Adol SDOH Screenings 03/14/2024 09/13/2023 [facility]-DTaP,Tdap,and Td Vaccines (3 - Td or Tdap) 09/30/2024 09/30/2014, 04/15/2014 [facility]-Influenza Vaccine (Season Ended) 2024 01/06/2012, 01/13/2010, 01/17/2007 [facility]-Depression Screening 01/03/2025 01/04/2024 Dental Oral Exam 02/15/2025 08/14/2024, , 04/17/2023 Dental Prophylaxis 02/15/2025 08/14/2024, 0 11/09/2023, 04/17/2023, Additional history exists Dental X-Ray: Bitewings 08/15/2025 08/15/19 25, 11/09/2023, 04/17/2023, Additional history exists Dental X-Ray: Full Mouth 12/07/2026 12/07/2023 [facility]-Zoster Vaccines (1 of 2) 2030 [facility]-HIV Screening Completed 09/13/2023 [facility]-Hepatitis C Screening Completed 2023, 09/13/2023, 10/30/2018 [facility]-HIB Vaccines Aged Out No longer e ligible based on patient's age to complete this topic [facility]-Hepatitis A Vaccines Aged Out No longer eligible based on patient's age to complete this topic [facility]-IPV Vaccines Aged Out No longer e ligible based on patient's age to complete this topic [facility]-Rotavirus Vaccines Aged Out No lo nger eligible based on patient's age to complete this topic Procedures Procedure Name Priority Date/Time Associated Diagnosis Comments PERIODIC ORAL EVALUATION - ESTABLISHED PATIENT Routine 08/14/2024 11:00 AM EDT Encounter for dental examination PROPHYLAXIS - ADULT Routine 08/14/2024 1 1:00 AM EDT Encounter for dental examination 21 INTRAORAL - PERIAPICAL FIRST RADIOGRAPHIC IMAGE Routine 08/14/2024 11:00 AM EDT Encounter for dental examination 21 BITEWING - SINGLE RADIOGRAPHIC IMAGE Routine 08/14/2024 11:00 AM EDT Encounter for dental examination PANORAMIC RADIOGRAPHIC IMAGE Routine 12/07/2023 1:00 PM EDT Dental caries HEPATITIS C ANTIBODY W/REFLEX TO HCV QUANT PCR Routine 09/13/2023 10:49 AM EDT Need for hepatitis C screening test HIV 1/2 ANTIBODY/ANTIGEN SCREEN WITH REFLEX TO HIV I/II DIFFERENTIATION Routine 09/13/2023 10:49 AM EDT Screening for human immunodeficiency virus from Last 3 Months or Most Recently Relevant to Health Maintenance Results * HIV 1 & 2 Antibody/Antigen Screen (09/13/2023 10:49 AM EDT) HIV 1 & 2 Antibody/Antigen Screen Non Reactive Non Reactive 09/13/2023 1:46 PM EDT [facility] Comment:Screening for HIV 1 & 2 antibodies, and P24 antigen is NONREACTIVE. No confirmatory testing is required. Blood Venous blood specimen / Unknown Venipuncture / Unknown 09/13/2023 10:49 AM EDT 09/13/2023 10:49 AM EDT Ellen Inman APRN LAB BLOOD ORDERABLES Final Resu lt [facility] [address] [place] [address] * (ABNORMAL) Hepatitis C Antibody w/Reflex to HCV Quant PCR (09/13/2023 10:49 AM EDT) Hepatitis C Antibody Positive( A) Negative 09/13/2023 1:50 PM EDT [facility] Comment:This specimen is benito ng sent for confirmation by RT-PCR. Blood Venous blood specimen / Unknown Venipuncture / Unknown 09/13/2023 10:49 AM EDT 09/13/2023 10:49 AM EDT Ellen Inman APRN LAB BLOOD ORDERABLES Final Resu lt [facility] [address] [place] [address] from Last 3 Months or Most Recently Relevant to Health Maintenance Insurance MEDICARE [employer] MEDICAID [employer] MEDICAID [facility] Care Teams Facing Cutting Machine Operator Relationship Specialty Start Date End Date Ellen Inman APRN [address] [place] [address] PCP - General Family Medicine 09/13/23
--- OUTSIDE RECORDS SUMMARY | 2024-09-04 02:12 | XMS_ITS | Encounter Summary ---
Author Organization Healthcare Address [address] [place] [address] Care Team Providers Care Bedspring Assembler Name Role Phone Pcp, No Primary Care Provider Unavailabl e Kike Baez MD Primary Care Provider [phone] Ellen Inman APRN Primary Care Provider [phone] Nan Madrid OPERATIONS REPRESENTATIVE Unavailable Unavailable Encounter Details Date Type Department Care Team (Late st Contact Info) Description 04/05/2019 [facility] [address] [place] [address] Dental, Provider, DDS [facility] [place] [id number] Social History Tobacco Use Types Packs/Day Years Used Date Smoking Tobacco: Never Assessed Sex and Gender Information Value Date Recorded Sex Assigned at Not on file Legal Sex Male 8:02 PM EDT Gender Identity Not on file Sexual Orientation Not on file documented as of this encounter Plan of Treatment Upcoming Encounters Date Type Department Care Team (Late st Contact Info) Description 09/19/2024 9:45 AM EDT Office Visit [facility] [address] [place] [address] Janiya Santoro [address] [place], [place] [phone] documented as of this encounter Visit Diagnoses Not on filedocumented in this encounter Care Teams Bedspring Assembler Relationship Specialty Start Date End Date Pcp, No [address] [place] [address] PCP - General Family Medicine 04/20/21 06/07/21 Kike Baez MD [address] [place] [address] PCP - General 06/08/21 09/12/23 Ellen Inman APRN [address] [place] [address] PCP - General Family Medicine 09/13/23 Nan Madrid, [place] [address] [employer] 09/13/23 09/13/23 documented as of this encounter
--- OUTSIDE RECORDS SUMMARY | 2024-09-04 02:12 | XMS_ITS | Encounter Summary ---
Author Organization Healthcare Address [address] [place] [address] Care Team Providers Care Job Placement Officer Name Role Phone Ellen Inman APRN Primary Care Provider [phone] Reason for Visit * Reason Comments Med Refill Encounter Details Date Type Department Care Team (Late st Contact Info) Description 07/31/2024 Refill [facility] [address] [place], [place] [id number] Nisha Hendrickson APRN, [facility] [address] [facility] [address] [place] [address] Hemophilia A (CMS/HCC) Social History Tobacco Use Types Packs/Day Years [...] 09/13/2023 How often do you attend chur ch or episcopal services? Never 09/13/2023 Do you belong to any clubs o r organizations such as presybeterian groups, unions, fraternal or athletic groups, or [...] Recorded Patient Health Questionnaire-2 Score 0 01/04/2024 [facility] - Occupational Stress [...] to sleep or slept in a senior living (including now)? 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
--- OUTSIDE RECORDS SUMMARY | 2024-09-04 02:12 | XMS_ITS | Encounter Summary ---
Author Organization Healthcare Address [address] [place] [address] Care Team Providers Care Soda Tester Name Role Phone StormEllen Annika ADAN Primary Care Provider [phone] Encounter Details Date Type Department Care Team (Latest Contact Info) Description 08/14/2024 Travel Social History Tobacco Use Types Packs/Day Years [...] How often do you attend chur or yarsanism services? Never 09/13/2023 Do you belong to any clubs o r organizations such as restorationism groups, unions, fraternal or athletic groups, or [...] Recorded Patient Health Questionnaire-2 Score 0 01/04/2024 [facility] - Occupational Stress Questionnaire Answer Date [...] place to sleep or slept in a snf (including now)? No 09/13/2023 Safety and Environment [...] Recorded In the past 12 months has [facility] electric, gas, oil, or water company threatened [...] Description 09/19/2024 9:45 AM EDT Office Visit [facility] [address] [place] [address] Janiya Santoro [address] [place] [address] documented as of this encounter Visit Diagnoses Not on filedocumented in this encounter Additional Health Concerns Assessment Noted Time A fall risk assessment has been complete d for the patient 05/17/2022 1:15 PM EST A Body Mass Index follow-up plan has been documented for the patient 08/14/2024 11:56 AM EDT documented as of this encounter Care Teams Soda Tester Relationship Specialty Start Date End Date Ellen Inman APRN [address] [place] [phone] PCP - General Family Medicine 09/13/23 documented as of this encounter
[2024-09-04 02:22] LABS: Alanine Aminotransferase 18 U/L (12-78); Albumin Level 3.9 g/dl (3.5-5.0); Albumin/Globulin Ratio 1.3 (1.1-1.8); Alkaline Phosphatase 77 U/L (38-126); Anion Gap 7.4 mEq/L (5-15); Aspartate Amino Transferase 31 U/L (17-59); Bilirubin,Total 0.8 mg/dl (0.2-1.3); Blood Urea Nitrogen 10 mg/dl (9-20); Calcium 8.4 mg/dl (8.4-10.2); Carbon Dioxide 29 mmol/L (22.0-30.0); Chloride 106 mmol/L (98-107); Creatinine Clearance Estimated 150 mL/min (50-200); Estimated Glomerular Filt Rate 106 ml/min (>60); GFR (African American) 128 ML/MIN (>60); Globulin 2.9 g/dL (1.3-3.2); Glucose 86 mg/dl (74-100); Potassium 3.4 mmoL/L (3.5-5.1); Sodium 139 mmol/L (136-145); Total Protein,Serum 6.8 g/dl (6.3-8.2)
[2024-09-04 02:34] LABS: NT Pro Brain Natriuretic Pep. < 20.0 pg/mL (0-125); Troponin I 0.02 ng/ml (0.00-0.034)
--- NOTE | 2024-09-04 02:36 | HMH.EDCP ---
Discharge Plan Disposition Patient Disposition: Home, Self-Care Condition: Good Prescriptions Prescriptions: No Action benzonatate 100 mg capsule 100 mg PO TIDP PRN (Reason: Cough) Qty: 30 0RF ondansetron 4 mg Tablet,Disintegrating 4 mg PO Q8H PRN (Reason: Nausea) Qty: 12 0RF oseltamivir [Tamiflu] 75 mg capsule 75 mg PO BID 5 Days Qty: 10 0RF Referrals Follow up/Referrals: Felipe Mcdaniel MD [Staff Physician, Cardiology] - See instructions Referral Note: 43-year-old male evaluated in the ER for chest pain, needs outpatient follow-up Provider,MD Kuldip [Primary Care Provider, Medical] - See instructions Syd Lane MD [Staff Physician, Family Practice] - See instructions Referral Note: establish care Activity Restrictions/Add. Instructions Additional Instructions/Restrictions: You were evaluated in the ER and are believed to be appropriate for discharge at this time. Call the cardiology office and make an appointment for reevaluation in 1 to 2 days. You have also been referred to Dr. Lane to establish care with him as a PCP. Call the office and make an appointment with them as soon as possible. Return to the ER with any new, worsening, or otherwise concerning symptoms as discussed. Clinical Impressions Clinical Impression: Chest pain Print Language Print Language: Maltese Discharge ED Provider: Dena Jim General Chief Complaint: Chest Pain Stated Complaint: Chest Pain Time Seen by Provider: 09/04/24 01:51 Mode of Arrival: Ambulatory Source of Information: Patient Description of Symptoms (Recalled from ER Triage Doc. by RN): Pt has chest pain in epigastric area for past 4 hours History of Present Illness HPI narrative: 43-year-old male presents to the ER for 4 hours of epigastric/substernal chest pain that he describes as sharp, stabbing. He states it started while he was sitting watching TV and has been unchanged since that time. He has no personal cardiac history. 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 Patient reports no chest pressure, no radiation of pain, no nausea, vomiting, or dizziness. No numbness, tingling, or weakness. He states nothing specific seems to make it better or worse. He took no medications prior to arrival. No difficulty breathing. Patient states he has had a mild cold recently and still has congestion but no cough. Related Data Previous Rx's ?Medication ?Instructions ?Recorded benzonatate 100 mg capsule 100 mg PO TIDP PRN Cough #30 caps 04/18/24 ondansetron 4 mg disintegrating 4 mg PO Q8H PRN Nausea #12 tabs 04/18/24 tablet oseltamivir 75 mg capsule (Tamiflu) 75 mg PO BID 5 days #10 caps 04/18/24 Allergies Allergy/AdvReac Type Severity Reaction Status Date / Time clarithromycin (From BIAXIN) Allergy Intermediate I-RASH Verified 11/27/23 12:29 aspirin (ASPIRIN) Allergy Unknown Verified 11/27/23 12:29 Penicillins (PENICILLINS) Allergy Unknown Verified 11/27/23 12:29 [facility] Disclaimer: The information contained in this section may have been updated after the patient was seen, as this information can be updated by other users. Medical History (Updated 09/04/24 @ 04:10 by Dena Jim MD) Insomnia Hemophilia Depression Anxiety Kidney stone Migraine Asthma Social History Smoking Status: Never smoker alcohol intake: never substance use type: marijuana current occupational status: unemployed Travel in the last 8 weeks?: None housing: house number of children: 0 Other Medical History Have you received the Flu Vaccine for this season: No Have you received the Pneumonia Vaccine: No ROS Obtained: Yes Systems reviewed as appropriate & no additional complaints except as documented Per HPI Physical Exam General General appearance: alert and in no apparent distress Head Head exam: atraumatic and normocephalic Eye Eye exam: Present PERRL and EOMI ENT ENT exam: Present mucous membranes moist Neck Neck exam: Present normal inspection and full ROM Chest Chest inspection: Present symmetric chest wall rise Respiratory Respiratory exam: Present normal lung sounds bilaterally; Absent respiratory distress, wheezes or stridor Cardiovascular Cardiovascular exam: Present regular rate and normal rhythm Abdominal Exam Abdominal exam: Present soft; Absent distention or tenderness Extremities Exam Extremities exam: Present full ROM Neurological Exam Neurological exam: Present alert and oriented X3; Absent motor sensory deficit Psychiatric Psychiatric exam: Present normal affect and normal mood Skin Skin exam: Present warm and dry HEART Score HEART Score HEART Score assessment performed?: Yes History (anamnesis): Slightly suspicious ECG: Normal Age: <45 years Risk factors: No known risk factors Troponin: </= normal limit HEART Score: 0 Critical Care Critical Care Time Critical Care Time: No Medical Decision Making Medical Records Medical records reviewed: Yes I reviewed the patient's medical records. Jeffery Inquiry Pt receiving controlled substance: No Vital Signs Vital Signs: 09/04/24 01:52 09/04/24 02:30 09/04/24 02:45 Temperature 97.9 F Temperature Source Oral Pulse Rate 57 L Pulse Rate [Right Brachial] 58 L Respiratory Rate 16 14 Blood Pressure 126/82 Blood Pressure [Right Arm] 162/92 H Blood Pressure Mean 100 Blood Pressure Mean [Right Arm] 115 Blood Pressure Source Blood Pressure Source [Right Arm] Automatic Cuff Blood Pressure Position Blood Pressure Position [Right Arm] Sitting 02 Sat by Pulse Oximetry 99 96 Oxygen Delivery Method Room Air 09/04/24 03:00 09/04/24 03:00 09/04/24 03:30 Temperature Temperature Source Pulse Rate 56 L Pulse Rate [Right Brachial] Respiratory Rate 14 Blood Pressure 131/79 134/79 Blood Pressure [Right Arm] Blood Pressure Mean 97 87 Blood Pressure Mean [Right Arm] Blood Pressure Source Blood Pressure Source [Right Arm] Blood Pressure Position Blood Pressure Position [Right Arm] 02 Sat by Pulse Oximetry 96 Oxygen Delivery Method 09/04/24 03:30 09/04/24 04:00 09/04/24 04:00 Temperature Temperature Source Pulse Rate 55 L 53 L Pulse Rate [Right Brachial] Respiratory Rate 14 14 Blood Pressure 119/78 Blood Pressure [Right Arm] Blood Pressure Mean 95 Blood Pressure Mean [Right Arm] Blood Pressure Source Blood Pressure Source [Right Arm] Blood Pressure Position Blood Pressure Position [Right Arm] 02 Sat by Pulse Oximetry 98 97 Oxygen Delivery Method 09/04/24 04:47 Temperature 98.0 F Temperature Source Oral Pulse Rate 53 L Pulse Rate [Right Brachial] Respiratory Rate 20 Blood Pressure 120/78 Blood Pressure [Right Arm] Blood Pressure Mean Blood Pressure Mean [Right Arm] Blood Pressure Source Automatic Cuff Blood Pressure Source [Right Arm] Blood Pressure Position Sitting Blood Pressure Position [Right Arm] 02 Sat by Pulse Oximetry Oxygen Delivery Method Room Air Lab Data Labs: Lab Results 09/04/24 01:53: WBC 9.0, RBC 4.79, Hgb 15.3, Hct 42.3, MCV 88.3, MCH 31.9 H, MCHC 36.2 H, RDW 13.3, Plt Count 410, MPV 9.5, Neut % (Auto) 54.0, Lymph % (Auto) 35.1, [place] % (Auto) 7.7, Eos % (Auto) 2.1, Baso % (Auto) 0.9, Neut # (Auto) 4.9, Lymph # (Auto) 3.2, [place] # (Auto) 0.7, Eos # (Auto) 0.2, Baso # (Auto) 0.1, PT 11.0, INR 0.99, Sodium 139, Potassium 3.4 L, Chloride 106, Carbon Dioxide 29, Anion Gap 7.4, BUN 10, Creatinine 0.80, Estimated Creat Clear 150, Estimated GFR 106, Est GFR ( Amer) 128, Glucose 86, Calcium 8.4, Total Bilirubin 0.8, AST 31, ALT 18, Alkaline Phosphatase 77, Troponin I 0.02, NT-Pro-B Natriuret Pep < 20.0, Total Protein 6.8, Albumin 3.9, Globulin 2.9, Albumin/Globulin Ratio 1.3, Lipase 98, HCV Ab CHRISTINA w/Rflx PCR Qn Reactive 09/04/24 03:40: Troponin I < 0.01 09/04/24 01:53 09/04/24 01:53 Response Orders (Tests/Meds): ED MEDICATIONS Discontinued Medications Generic Name Dose Route Start Last Admin Trade Name Freq PRN Reason Stop Dose Admin Belladonna Alkaloids 60 ml 09/04/24 01:55 09/04/24 02:08 Belladonna Alkaloids 60 Ml Ml PO 09/04/24 01:56 60 ml ONCE ONE Administration Ketorolac Tromethamine 30 mg 09/04/24 03:44 09/04/24 03:45 Ketorolac 30mg/Ml Vial IV 09/04/24 03:45 30 mg ONCE ONE Administration ORDERS Category Date Time Status XR chest 2V Stat Exams 09/04/24 01:54 Completed Complete Blood Count Auto Diff Stat Lab 09/04/24 01:53 Completed Comprehensive Metabolic Panel Stat Lab 09/04/24 01:53 Completed HCV RNA PCR, Quant Routine Lab 09/04/24 01:53 Received HIV Combo Routine Lab 09/04/24 01:53 Received Hepatitis C Ab Qual. W/ RFX Routine Lab 09/04/24 01:53 Completed Lipase Stat Lab 06/18/25 01:53 Completed NT Pro Brain Natriuretic Pep. Stat Lab 09/04/24 01:53 Completed Prothrombin Time INR Stat Lab 09/04/24 01:53 Completed Troponin I Q3H Lab 09/04/24 03:40 Completed Troponin I Stat Lab 09/04/24 01:53 Completed MDM Narrative Medical Decision Narrative: In summary, this 43-year-old male with hemophilia A presents to the emergency department today with epigastric/substernal sharp pain. On initial evaluation patient is hemodynamically stable, afebrile, GCS 15, cardiopulmonary exam benign, pain is not reproducible on exam, abdominal exam benign, remainder of exam benign. Differential diagnosis includes but is not limited to ACS, considered PE but patient is PERC negative, considered arrhythmia, electrolyte abnormality, esophageal spasm, pancreatitis, pneumonia, pneumothorax, among others. Based on these concerns, I ordered serum labs, cardiac workup, chest x-ray. ECG personally interpreted demonstrates sinus bradycardia, rate 55, borderline left axis deviation, normal [place] and QTc, no STEMI. Patient has aspirin allergy so this was not administered. No leukocytosis or anemia, platelets normal, PT/INR normal, CMP nonactionable, BNP undetectable less than 20, initial troponin 0.02, repeat troponin pending. Chest x-ray personally interpreted does not demonstrate acute thoracic abnormality, see radiology read for final interpretation. Patient was placed in the ED observation at 0250 for serial troponins to rule out evolving NE and preclude unnecessary admission. On reassessment patient reports his pain is improved but still 2 out of 10. Toradol administered. He has been frequently reassessed and remained on the drafter seismograph while in ED observation. Symptoms have improved and he is resting comfortably on reassessment. Repeat troponin undetectable less than 0.01. At this time I believe he is appropriate for discharge since he is asymptomatic and has reassuring serial troponins. Patient is appropriate for discharge at this time. He was instructed on symptomatic monitoring and management. He was given a referral to cardiology for outpatient reevaluation as well as instructions on outpatient follow-up with PCP and strict return precautions for the ER. He indicated understanding and the patient was discharged in stable condition. Total time in ED observation: 1 hour 32 minutes
[2024-09-04 02:43] LABS: INR 0.99 (0.9-1.1)
[2024-09-04 03:08] LABS: Lipase 98 U/L (23-300)
[2024-09-04] MEDS: KETOROLAC 30MG/ML VIAL 30 MG IV (03:45)
[2024-09-04 04:14] LABS: Troponin I < 0.01 ng/ml (0.00-0.034)
[2024-09-04 05:01] LABS: Hepatitis C Ab Qual. W/ RFX REACTIVE (Negative)
[2024-09-04 05:56] LABS: HIV Combo NEGATIVE (Negative)
== END 2024-09-04 04:49 | disposition home or self-care (01) ==
PROVIDERS: Emergency Provider Emergency Medicine
DX: R07.9 Chest pain, unspecified (principal); E87.6 Hypokalemia
CPT/HCPCS: 71046; 80053; 80074; 83690; 83880; 84484; 85025; 85610; 87389; 87522; 93005; 96374; 99285; J1885

== ENCOUNTER 2024-10-08 07:36 | Outpatient (CLI) | payer MEDICARE, MEDICAID, SELFPAY ==
--- OUTSIDE RECORDS SUMMARY | 2024-08-14 11:00 | XMS_ITS | Encounter Summary ---
Author Organization Healthcare Address [address] [place] [address] Care Team Providers Care Medical Director Occupational Health Name Role Phone StormEllen Annika ADAN Primary Care Provider [phone] Encounter Details Date Type Department Care Team (Late st Contact Info) Description 08/14/2024 11:00 AM EDT [facility] Visit [facility] [address] [place] [address] Madison Sotelo, DMD [address] [place] [address] Encounter for dental examination (Primary Dx) Social History Tobacco Use Types Packs/Day Years Used Date Smoking Tobacco: Never Passive Smoke Exposure: Current Smokeless Tobacco: Never Alcohol Use Standard Drinks/Week Comments No 0 (1 standard drink = 0.6 oz pur e alcohol) Humiliation, Afraid, Rape, and Kick questionnair e Answer Date Recorded Within the last year, have y ou been afraid of your partner or ex-partner? No 09/13/2023 Within the last year, have y ou been humiliated or emotionally abused in other ways by your partner or ex-partner? No Within the last year, have y ou been kicked, hit, slapped, or otherwise physically hurt by your partner or ex-partner? No 09/13/2023 Within the last year, have y ou been raped or forced to have any kind of sexual activity by your partner or ex-partner? No 09/13/2023 Social Connection and Isolation Panel Answer Date Recorded In a typical week, how many times do you talk on the phone with family, friends, or neighbors? More than three times a week 09/13/2023 How often do you get togethe r with friends or relatives? More than three times a week 09/13/2023 How often do you attend chur or pentecostal services? Never 09/13/2023 Do you belong to any clubs o r organizations such as worship groups, unions, fraternal or athletic groups, or school groups? No 09/13/2023 How often do you attend meet ings of the clubs or organizations you belong to? Never 09/13/2023 Are you , , di vorced, , never , or living with a partner? Never 09/13/2023 AUDIT-C Answer Date Recorded Q1: How often do you have a drink containing alc ohol? 2-3 times a week 09/13/2023 Q2: How many drinks containi ng alcohol do you have on a typical day when you are drinking? 3 or 4 09/13/2023 Q3: How often do you have si x or more drinks on one occasion? Monthly 09/13/2023 Overall Financial Resource Strain (CARDIA) Answe r Date Recorded How hard is it for you to pa y for the very basics like food, housing, medical care, and heating? Not hard at all 09/13/2023 PHQ-2 Answer Date Recorded Patient Health Questionnaire-2 Score 0 01/04/2024 [facility] - Occupational Stress Questionnaire Answer Date Recorded Do you feel stress - tense, restless, nervous, or anxious, or unable to sleep at night because your mind is troubled all the time - these days? Not at all 09/13/2023 Exercise Vital Sign Answer Date Recorde d On average, how many days pe r week do you engage in moderate to strenuous exercise (like a brisk walk)? 2 days 09/13/2023 On average, how many minutes do you engage in exercise at this level? 20 min 09/13/2023 Hunger Vital Sign Answer Date Recorded Within the past 12 months, y ou worried that your food would run out before you got the money to buy more. Often true 09/13/19 24 Within the past 12 months, t he food you bought just didn't last and you didn't have money to get more. Often true 09/13/2023 PRAPARE - Transportation Answer Date Re corded In the past 12 months, has l ack of transportation kept you from medical appointments or from getting medications? No 08/19 In the past 12 months, has l ack of transportation kept you from meetings, work, or from getting things needed for daily living? No 09/13/2023 Housing Stability Vital Sign Answer Jasmeet e Recorded In the last 12 months, was t here a time when you were not able to pay the mortgage or rent on time? No 09/13/2023 In the last 12 months, how many places have you lived? 1 09/13/2023 In the last 12 months, was t here a time when you did not have a steady place to sleep or slept in a care home (including now)? No 09/13/2023 Safety and Environment Answer Date Lai rded Do you worry that your child may have been physically abused? No 09/13/2023 Do you worry that your child may have been sexua lly abused? No 09/13/2023 Are there any guns kept in o r around your home or where your child spends time? No 09/13/2023 Guns Unloaded or Locked Away Not on file Utilities Answer Date Recorded In the past 12 months has th e electric, gas, oil, or water company threatened to shut off services in your home? No 09/13/2023 Sex and Gender Information Value Date Recorded Sex Assigned at Not on file Legal Sex Male 8:02 PM EDT Gender Identity Not on file Sexual Orientation Not on file documented as of this encounter Last Filed Vital Signs Vital Sign Reading Time Taken Comments Blood Pressure 140/86 08/14/2024 10:57 AM EDT Pulse 56 08/14/2024 10:57 AM EDT Temperature - - Respiratory Rate - - Oxygen Saturation - - Inhaled Oxygen Concentration - - Weight - - Height - - Body Mass Index - - documented in this encounter Miscellaneous Notes * Progress Notes - Madison Sotelo DMD - 08/14/2024 11:00 AM EDT Adult Dentistry - [facility] Subjective: 43 y.o. male presents to clinic for periodic exam appointment adult prophy , and treatment planning for sensitivity of #21 Objective: Medical and dental hx reviewed. 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 Moderate plaque and calculus buildup. Fair oral hygiene. Radiographic Interp: Film Ordered: BW/PA Date ordered: 08/14/24 Radiographic Indications: Sensitivity #21 Radiographic Observations Maxillofacial Structures (including bone, sinus, TMJ): Normal bone trabeculation Dentition: DO amalgam mandaeism #21 with underfill at margin, MOD amalgam mandaeism #20, RCT #12, #13 composite MOD, #14 MO amalgam, missing #17,18,19. Marginal Periodontium:moderate bone loss Apical Periodontium: normal bone trabeculation. Mental foramen seen in PA slightly distal to #20 apex Other: N/A Radiographic Interpretation/Dx: restorations, root canal, missing teeth Plan: Today: periodic exam appointment adult prophy and treatment planning #21 Future visits: #21DO mandaeism Tx-Rendered today: Patient initially came in for sensitivity between #20 and #21. Patient states it is sensitive when he eats. Radiograph shows open margin on #21. Told patient this could be causing his sensitivity, sowe can replace current mandaeism to see if it helps. Patient agreed. Patient asked for cleaning today as well if time allowed. Performed cleaning and exam as noted below. Completed periodic oral exam. Bitewings x1 and PA (#21) acquired and reviewed. Findings documented in objective and assessment sections above. Findings discussed with patient, radiographs reviewed. Procedure, risks, benefits, alternatives andcomplications discussed. Opportunity was given for patient to ask questions. All questions answeredto patients apparent satisfaction. Explained to the patient the extension of their dental diseases. Patient agreed to the proposed tx plan Completed hand instrumentation to remove interproximal and supragingival calculus. Used cavitron toremove obstinante calculus and staining. Flossed and rinsed. OHI given. Next visit patient will come in to replace #21DO mandaeism. Patient then wants to start mandibular RPD process. Preauth was sent in and approved in October, but another one has to be sent in since it has been over 6 months. NV: RTC for visit 1: replace #21 DO amalgam mandaeism. Visit 2: start RPD process Cosigned by Tosin Hood DMD at 08/18/2024 7:41 PM EDT Associated attestation - Tosin Hood DMD - 08/18/2024 7:41 PM EDT I have reviewed the resident's dental note. I was physically present in the clinic and immediately available throughout the entire procedure to provide direct supervision. documented in this encounter Plan of Treatment Upcoming Encounters Date Type Department Care Team (Late st Contact Info) Description 10/11/2024 2:30 PM EDT Office Visit [facility] Adult [facility] [address] [address] Janiya Santoro [address] [place] [address] [phone] documented as of this encounter Procedures Procedure Name Priority Date/Time Associated Diagnosis Comments PROPHYLAXIS - ADULT Routine 08/14/2024 1 1:00 AM EDT Encounter for dental examination 21 BITEWING - SINGLE RADIOGRAPHIC IMAGE Routine 08/14/2024 11:00 AM EDT Encounter for dental examination 21 INTRAORAL - PERIAPICAL FIRST RADIOGRAPHIC IMAGE Routine 08/14/2024 11:00 AM EDT Encounter for dental examination PERIODIC ORAL EVALUATION - ESTABLISHED PATIENT Routine 08/14/2024 11:00 AM EDT Encounter for dental examination documented in this encounter Visit Diagnoses Diagnosis Encounter for dental examination- Primary documented in this encounter Additional Health Concerns Assessment Noted Time A fall risk assessment has been complete d for the patient 05/17/2022 1:15 PM EST A Body Mass Index follow-up plan has been documented for the patient 08/14/2024 11:56 AM EDT documented as of this encounter Care Teams Medical Director Occupational Health Relationship Specialty Start Date End Date Ellen Inman APRN [address] [place] [id number] PCP - General Family Medicine 09/13/23 documented as of this encounter
--- OUTSIDE RECORDS SUMMARY | 2024-09-19 09:45 | XMS_ITS | Encounter Summary ---
Author Organization Healthcare Address [address] [place] [address] Care Team Providers Care X [employer] Wireman Name Role Phone StormEllen Annika ADAN Primary Care Provider [phone] Encounter Details Date Type Department Care Team (Late st Contact Info) Description 09/19/2024 9:45 AM EDT [facility] [address] [place] [address] Janiya Santoro [address] [place] [address] Caries (Primary Dx) Social History Tobacco Use Types [...] often do you attend chur ch or worship services? Never 09/13/2023 Do you belong to any clubs o r organizations such as cheondoism groups, unions, fraternal or athletic groups, or [...] Recorded Patient Health Questionnaire-2 Score 0 01/04/2024 [facility] - Occupational [...] place to sleep or slept in a long-term (including now)? No 09/13/2023 Safety and Environment [...] the past 12 months has th e [employer] gas, oil, or water company threatened to shut off services in your home? No 09/13/2023 Sex and Gender Information Value Date Recorded Sex Assigned at Not on file Legal Sex Male 8:02 PM EDT Gender Identity Not on file Sexual Orientation Not on file documented as of this encounter Last Filed Vital Signs Vital Sign Reading Time Taken Comments Blood Pressure 115/71 09/19/2024 9:44 AM EDT Pulse 59 09/19/2024 9:44 AM EDT Temperature - - Respiratory Rate - - Oxygen Saturation - - Inhaled Oxygen Concentration - - Weight - - Height - - Body Mass Index - - documented in this encounter Miscellaneous Notes * Progress Notes - Janiya Santoro - 09/19/2024 9:45 AM EDT Adult Dentistry - [facility] Subjective: 43 y.o. male presents to clinic for replacing old amalgam filling that has recurrent caries#21. Objective: Visit Vitals BP 115/71 Pulse 59 Smoking Status Never Medical and dental hx reviewed. No changes Medications Ordered Prior to Encounter[1] Past Medical History[2] Surgical History[3] Social Drivers of Health Food Insecurity: Food Insecurity Present (09/13/2023) Hunger Vital Sign Worried About Running Out of Food in the Last Year: Often true Ran Out of Food in the Last Year: Often true Alcohol Use: Alcohol Misuse (09/13/2023) AUDIT-C Frequency of Alcohol Consumption: 2-3 times a week Average Number of Drinks: 3 or 4 Frequency of Binge Drinking: Monthly Housing Stability: Low Risk (09/13/2023) Housing Stability Vital Sign Unable to Pay for Housing in the Last Year: No Number of Places Lived in the Last Year: 1 Unstable Housing in the Last Year: No Tobacco Use: Medium Risk (06/18/2024) Patient History Smoking Tobacco Use: Never Smokeless Tobacco Use: Never Passive Exposure: Current Transportation Needs: No Transportation Needs (09/13/2023) PRAPARE - Transportation Lack of Transportation (Medical): No Lack of Transportation (Non-Medical): No Depression: Not at risk (01/04/2024) PHQ-2 PHQ-2 Score: 0 Utilities: Not At Risk (09/13/2023) Utilities Threatened with loss of utilities: No Stress: No Stress Concern Present (09/13/2023) Citizen Of [place] [facility] - Occupational Stress Questionnaire Feeling of Stress : Not at all Intimate Partner Violence: Not At Risk (09/13/2023) Humiliation, Afraid, Rape, and Kick questionnaire Fear of Current or Ex-Partner: No Emotionally Abused: No Physically Abused: No Sexually Abused: No Physical Activity: Insufficiently Active (09/13/2023) Exercise Vital Sign Days of Exercise per Week: 2 days Minutes of Exercise per Session: 20 min Social Connections: Socially Isolated (09/13/2023) Social Connection and Isolation Panel Frequency of Communication with Friends and Family: More than three times a week Frequency of Social Gatherings with Friends and Family: More than three times a week Attends Yarsanism Services: Never Active Member of Clubs or Organizations: No Attends Club or Organization Meetings: Never Marital Status: Never Financial Resource Strain: Low Risk (09/13/2023) Overall Financial Resource Strain (CARDIA) Difficulty of Paying Living Expenses: Not hard at all Allergies[4] EOE: WNL Dental Exam: Dental Soft Tissue Exam WNL Dental Exam recurrent caries#21 D Assessment: ASA Class: ASA 2 - Patient with mild systemic disease with no functional limitations Caries (based on intraoral and radio exam): #21 D Plan: Today: #21 filling DO Future visits: Scanning for lower RPD Tx-Rendered today: Local anesthesia was given for patient comfort during the procedure. Lidocaine 2% - Epi 1:100.000 UI: 34 mg Lidocaine w/ 0.017 mg epi (1 carpule) were delivered via [employer]. Old orthodox removed and caries were excavated. Varnish applied, then #21DO restored with amalgam. Interproximal contact and occlusion checked and adjusted until satisfactory. Occlusion checked and adjusted until satisfactory. Pt was informed If #21 becomes symptomatic crown+RC or extraction will be needed. POIG NV: RTC for Scanning for lower RPD [1] Current Outpatient Medications on File Prior to Visit Medication Sig Dispense Refill meloxicam (Mobic) 15 MG tablet Take 1 tablet by mouth daily. 30 tablet 3 antihemophilic factor rAHF-PAF (Xyntha Solofuse) 2000 units kit INFUSE 4000 UNITS (1613-0918) SLOW IV PUSH DIRECTED BY [employer] FOR BREAKTHROUGH BLEEDING/ PER PROCEDURALLY WHILE ON HEMLIBRA PROPHYLAXIS. 3 each 3 Emicizumab-kxwh (Hemlibra) 150 MG/ML injection Inject 1.8 mL under the skin every 14 (fourteen) days. For secondary prophylaxis. Please include all supplies. 2 each 11 Fluticasone Furoate-Vilanterol (Breo Ellipta) 100-25 MCG/ACT aerosol powder Inhale 1 puff 1 (one) time each day. (Patient not taking: Reported on 06/18/2024) 28 each 11 hydrOXYzine HCl (Atarax) 25 MG tablet Take 1 tablet (25 mg) by mouth at night if needed (sleep). (Patient not taking: Reported on 06/18/2024) 30 tablet 2 tranexamic acid (Lysteda) 650 MG tablet tablet Take 2 tablets (1,300 mg) by mouth 3 (three) times aday if needed (take for 3-5 days after dental extraction procedure.). 30 tablet 0 traZODone (Desyrel) 50 MG tablet Take 1 tablet (50 mg) by mouth every night. Take 1-2 tablets at night as needed (Patient not taking: Reported on 06/18/2024) No current facility-administered medications on file prior to visit. 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 Aspirin-Caffeine Unknown - Patient states they do not know rxn details Clarithromycin Unknown - Patient states they do not know rxn details Erythromycin Unknown - Patient states they do not know rxn details Penicillins Unknown - Patient states they do not know rxn details Cosigned by Yolanda Jeffery DMD at 09/19/2024 4:32 PM EDT Associated attestation - Yolanda Jeffery DMD - 09/19/2024 4:32 PM EDT I have reviewed the resident's dental note. I was physically present in the clinic and immediately available throughout the entire procedure to provide direct supervision. documented in this encounter Plan of Treatment Upcoming Encounters Date Type Department Care Team (Late st Contact Info) Description 10/11/2024 2:30 PM EDT Office Visit [facility] Adult Dentistry [address] [place] [address] Janiya Santoro [address] [place] [address] documented as of this encounter Procedures Procedure Name Priority Date/Time Associated Diagnosis Comments 21 DO AMALGAM - 2 SURFACES, PRIMARY OR PERMANENT Routine 09/19/2024 9:45 AM EDT Caries documented in this encounter Visit Diagnoses Diagnosis Caries- Primary documented in this encounter Additional Health Concerns Assessment Noted Time A fall risk assessment has been complete d for the patient 05/17/2022 1:15 PM EST A Body Mass Index follow-up plan has been documented for the patient 09/19/2024 10:55 AM EDT documented as of this encounter Care Teams [employer] Wireman Relationship Specialty Start Date End Date Ellen Inman APRN [address] [place] [address] PCP - General Family Medicine 09/13/23 documented as of this encounter
--- OUTSIDE RECORDS SUMMARY | 2024-10-08 07:38 | XMS_ITS | Clinical Summary ---
Author Organization [facility] Address [address] [place] [address] Care Team Providers Care Reinforcer Name Role Phone Ellen Inman LOCO Primary Care Provider [phone] Allergies Active Allergy Reactions Criticality Noted Date [...] 1 (one) time each day. 28 each 09/13/19 24 Active Additional Information Patient not taking.Reported on 06/18/2024 hydrOXYzine HCl (Atarax) 25 MG tabletIndication s:Insomnia, unspecified type Take 1 tablet (25 mg) by mouth at night if needed (sleep). 30 tablet 2 09/13/19 24 Active Additional Information Patient not taking.Reported on 06/18/2024 tranexamic acid (Lysteda) 650 MG tablet tabletIndication s:Severe hemophilia A (CMS/HCC) Take 2 tablets (1,300 mg) by mouth 3 (three) times a day if needed (take for 3-5 days after dental extraction procedure.). 30 tablet 11/22/19 24 Active traZODone (Desyrel) 50 MG tablet Take 1 tablet (50 mg) by mouth every night. Take 1-2 tablets at night as needed 11/14/19 24 Active Emicizumab-kxwh (Hemlibra) 150 MG/ML injectionIndicat ions:Hemophilia A (CMS/HCC) Inject 1.8 mL under the skin every 14 (fourteen) days. For secondary prophylaxis. Please include all supplies. 2 each 11 06/19/19 25 Active antihemophilic factor rAHF-PAF (Xyntha Solofuse) 2000 units kitIndications:H emophilia A (CMS/HCC) INFUSE 4000 UNITS ([id number]) SLOW IV PUSH DIRECTED BY [facility] FOR BREAKTHROUGH BLEEDING/ PER PROCEDURALLY WHILE ON HEMLIBRA PROPHYLAXIS. 3 each 08/02/19 25 Active meloxicam (Mobic) 15 MG tabletIndication s:Severe hemophilia A (CMS/HCC),Arthro ronna in hemophilia ([facility]) Take 1 tablet by mouth daily. 30 tablet 3 09/12/19 25 Active meloxicam (Mobic) 15 MG tablet Take 1 tablet by mouth daily. 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 06/08/2021 Elbow pain 12/22/2016 Foot pain 06/04/2014 Arthritis 05/30/2014 Ankle arthritis 04/29/2014 Encounters Date Type Department Care Team Description 09/19/2024 9:45 AM EDT Office Visit [facility] Adult Dentistry [address] [place] [address] Janiya Santoro Caries (Primary Dx) 09/19/2024 Travel 09/11/2024 Refill [facility] Pediatric Hemophilia [address]; [address] [place] [address] Nisha Hendrickson APRN, RUPERT Severe hemophilia A (CMS/HCC) (Primary Dx); 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 ([facility]); Arthritis; Right elbow pain; Left foot pain 08/14/2024 11:00 AM EDT Office Visit [facility] [address] [place] [address] [place] Sotelo, DMD Encounter for dental examination (Primary Dx) 08/14/2024 Travel 07/31/2024 [facility] [address] [place] [address] [place] [address] Nisha Hendrickson APRN, DNP Hemophilia A ([facility]) from Last 3 Months Immunizations Immunization Administration [...] week 09/13/2023 How often do you attend [facility] or baptism services? Never 09/13/2023 Do you belong to any clubs o r organizations such as confucianism groups, unions, fraternal or athletic groups, or [...] Recorded Patient Health Questionnaire-2 Score 0 01/04/2024 [facility] - Occupational Stress Questionnaire Answer Date [...] place to sleep or slept in a intermediate (including now)? No 09/13/2023 Safety and Environment [...] Pulse 59 09/19/2024 9:44 AM EDT Temperature 37.3 C (99.2 F) [...] Description 10/11/2024 2:30 PM EDT Office Visit [facility] [address] [place] [address] Janiya Santoro [address] [place] [address] Health Maintenance Due Date Last Done Comments [facility]-Medicare Annual Wellness (AWV) 1980 [facility]-/Child/Adol SDOH Screenings 1980 [id number] Vaccine (#1) 1985 [facility]-Varicella Vaccines (1 of 2 - 13+ 2-dose series) 1993 HPV Vaccines (1 - Male 3-dose series) 10/10/1995 [facility]- SDOH Screenings 1998 [facility]-Adult SDOH Screenings 1998 [facility]-Hepatitis B Vaccines (1 of 3 - 19+ 3-dose series) 10/10/1999 [facility]-DTaP,Tdap,and Td Vaccines (3 - Td or Tdap) 09/30/2024 09/30/2014, 04/15/2014 [facility]-Influenza Vaccine (#1) 11/18/202401/05, 01/13/2010, 01/17/2007 [facility]-Depression Screening 01/03/2025 01/04/2024 Dental Oral Exam 02/15/2025 08/14/2024, , 04/17/2023 Dental Prophylaxis 02/15/2025 08/14/2024, 0 11/09/2023, 04/17/2023, Additional history exists Dental X-Ray: Bitewings 08/15/2025 08/15/19 25, 11/09/2023, 04/17/2023, Additional history exists Dental X-Ray: Full Mouth 12/07/2026 12/07/2023 [facility]-Zoster Vaccines (1 of 2) 2030 [facility]-Pneumococcal Vaccine: Pediatrics (0 to 5 Years) and At-Risk Patients (6 to 49 Years) Aged Out 01/13/2010 No longer eligible based on patient's age to complete this topic [facility]-HIV Screening Completed 09/13/2023 [facility]-Hepatitis C Screening [...] PERMANENT Routine 09/19/2024 9:45 AM EDT Caries PERIODIC ORAL EVALUATION - ESTABLISHED PATIENT Routine [...] Reactive Non Reactive 09/13/2023 1:46 PM EDT [facility] Comment:Screening for HIV 1 & 2 antibodies, and P24 antigen is NONREACTIVE. No confirmatory testing is required. Blood Venous blood specimen / Unknown Venipuncture / Unknown 09/13/2023 10:49 AM EDT 09/13/2023 10:49 AM EDT us Ellen Inman APRN LAB BLOOD ORDERABLES Final Resu lt [facility] [address] [place] [address] * (ABNORMAL) Hepatitis C Antibody w/Reflex to HCV Quant PCR (09/13/2023 10:49 AM EDT) Hepatitis C Antibody Positive( A) Negative 09/13/2023 1:50 PM EDT [facility] Comment:This specimen is benito ng sent for confirmation by RT-PCR. Blood Venous blood specimen / Unknown Venipuncture / Unknown 09/13/2023 10:49 AM EDT 09/13/2023 10:49 AM EDT us Ellen Inman APRN LAB BLOOD ORDERABLES Final Resu lt [facility] [address] [place] [phone] from Last 3 Months or Most Recently Relevant to Health Maintenance [place] [address] MEDICARE PASSPORT MEDICAID [place] MEDICAID O DENTAQUEST Care Teams Reinforcer Relationship Specialty Start Date End Date Ellen Inman APRN [address] [place] [address] PCP - General Family Medicine 09/13/23
--- OUTSIDE RECORDS SUMMARY | 2024-10-08 07:38 | XMS_ITS | Encounter Summary ---
Author Organization Healthcare Address [address] [place] [address] Care Team Providers Care Sld Educational Aide Name Role Phone Pcp, No Primary Care Provider Unavailabl e Kike Baez MD Primary Care Provider [phone] Ellen Inman APRN Primary Care Provider [phone] Nan [place] FOOD SERVICE KITCHEN SUPERVISOR Unavailable Unavailable Encounter Details Date Type Department Care Team (Late st Contact Info) Description 04/05/2019 [facility] [address] [place] [address] Dental, Provider, DDS [facility] [place] [id number] Social History Tobacco Use Types Packs/Day Years [...] Description 10/11/2024 2:30 PM EDT Office Visit [facility] Adult Dentistry [address] [place] [address] Janiya Santoro [address] [place], [place] [phone] documented as of this encounter Visit Diagnoses Not on filedocumented in this encounter Care Teams Sld Educational Aide Relationship Specialty Start Date End Date Pcp, No [address] [place] [address] PCP - General Family Medicine 04/20/21 06/07/21 Kike Baez MD [address] [place] [address] PCP - General 06/08/21 09/12/23 Ellen Inman APRN [address] [place] [address] PCP - General Family Medicine 09/13/23 Nan [place], [place] [address] Bakery Decorator Crime Scene Photographer 09/13/23 09/13/23 documented as of this encounter
--- OUTSIDE RECORDS SUMMARY | 2024-10-08 07:38 | XMS_ITS | Encounter Summary ---
Author Organization Healthcare Address [address] 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 Never 09/13/2023 Do you belong to any clubs o r organizations such as samaritan groups, unions, fraternal or athletic groups, or [...] Recorded Patient Health Questionnaire-2 Score 0 01/04/2024 [facility] - Occupational Stress Questionnaire Answer Date Recorded [...] the money to buy more. Often true 06/26/20 24 Within the past 12 months, t [...] place to sleep or slept in a jail (including now)? No 09/13/2023 Safety and Environment [...] on file documented as of this encounter Miscellaneous Notes * Telephone Encounter - Nisha Hendrickson APRN, DNP - 09/11/2024 10:37 AM EDT Refill request for Meloxicam. Renewed RX for 15mg tab:30 tabs, 3 refills. 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 factor VIII disorder Arthritis Unspecified arthropathy, site unspecified Right elbow pain Pain in joint, upper arm Left foot pain Pain in soft tissues of limb documented in this encounter Additional Health Concerns Assessment Noted Time A fall risk assessment has been complete d for the patient 05/17/2022 1:15 PM EST A Body Mass Index follow-up plan has been documented for the patient 08/14/2024 11:56 AM EDT documented as of this encounter Care Teams Acoustical Tile Patternmaker Relationship Specialty Start Date End Date Ellen Inman APRN [address] [place] [address] PCP - General Family Medicine 09/13/23 documented as of this encounter
--- OUTSIDE RECORDS SUMMARY | 2024-10-08 07:38 | XMS_ITS | Encounter Summary ---
Author Organization Healthcare Address [address] [place] [address] Care Team Providers Care Form Presser Name Role Phone StormEllen Annika ADAN Primary Care Provider [phone] Encounter Details Date Type Department Care Team [...] How often do you attend chur or islam services? Never 09/13/2023 Do you belong to any clubs o r organizations such as congregation groups, unions, fraternal or athletic groups, or [...] Recorded Patient Health Questionnaire-2 Score 0 01/04/2024 [facility]at ional [facility] - Occupational Stress Questionnaire Answer Date [...] place to sleep or slept in a alf (including now)? No 09/13/2023 Safety and Environment [...] Recorded In the past 12 months has [facility], gas, oil, or water company [...] Description 10/11/2024 2:30 PM EDT [facility] [address] [place] [address] Janiya Santoro [address] [place] [address] documented as of this encounter Visit Diagnoses Not on filedocumented in this encounter Additional Health Concerns Assessment Noted Time A fall risk assessment has been complete d for the patient 05/17/2022 1:15 PM EST A Body Mass Index follow-up plan has been documented for the patient 08/14/2024 11:56 AM EDT documented as of this encounter Care Teams Form Presser Relationship Specialty Start Date End Date Ellen Inman APRN [address] [place] [phone] PCP - General Family Medicine 09/13/23 documented as of this encounter
--- OUTSIDE RECORDS SUMMARY | 2024-10-08 07:38 | XMS_ITS | Encounter Summary ---
Author Organization Healthcare Address [address] [place] [address] Care Team Providers Care Accounting Policy Consultant Name Role Phone Ellen Inman LOCO Primary Care Provider [phone] Nan MadridW Unavailable Unavailable Encounter Details Date Type Department Care Team (Late st Contact Info) Description 09/13/2023 Patient Outreach [facility] [address] [place] [address] Delvin Orantes Social History Tobacco Use Types Packs/Day Years [...] often do you attend chur ch or yarsani services? Never 09/13/2023 Do you belong to any clubs o r organizations such as evangelical groups, unions, fraternal or athletic groups, or [...] Patient Health Questionnaire-2 Score 0 01/04/2024 [facility] Occupat ional Health - Occupational Stress [...] place to sleep or slept in a chcf (including now)? No 09/13/2023 Safety and Environment [...] on file documented as of this encounter Functional Status * AUDIT-C Score Answer Date of Assessment Author 6 09/13/2023 10:05 AM Vale Mims * Question Answer Date of Assessment Author Q1: How often do you have a drink containing alcohol? 2-3 times a week 09/13/2023 10:05 AM Vale Mims Q2: How many drinks containing alcohol do you have on a typical day when you are drinking? 3 or 4 09/13/2023 10:05 AM Vale Mims Q3: How often do you have six or more drinks on one occasion? Monthly 09/13/2023 10:05 AM Vale Mims * Over the past 2 weeks, how often have you been bothered by any of the following problems? Question Answer Date of Assessment Author Little interest or pleasure in doing things Not at all 01/04/2024 2:07 PM EDT Stephanie Fitch Feeling down, depressed, or hopeless Not at all 01/04/2024 2:07 PM EDT Stephanie Fitch Patient Health Questionnaire -2 Score 0 01/04/2024 2:07 PM EDT Stephanie Fitch * Calculated C-SSRS Risk Score (Lifetime/Recent) Answer Date of Assessment Author No Risk Indicated 09/13/2023 10:05 AM EDT Vale Ramirez * If you checked off any problems on this questionnaire so far, Question Answer Date of Assessment Author How difficult have these problems made it for you to do your work, take care of things at home, or get along with other people? Not difficult at all 09/13/2023 10:05 AM EDT Vale Walker * Question Answer Date of Assessment Author 1. Wish to be (Past 1 Month) No 024 10:05 AM Vale Mims 2. Non-Specific Active Suici cuco Thoughts (Past 1 Month) No 09/13/2023 10:05 AM GILDAT Nereyda Walker 6. Suicidal Behavior (Lifetime) No 10:05 AM Vale Mims documented as of this encounter Plan of Treatment Upcoming Encounters Date Type Department Care Team (Late st Contact Info) Description 10/11/2024 2:30 PM EDT [facility] [address] [place] [address] Janiya Santoro [address] [place], [place] [id number] documented as of this encounter Visit Diagnoses Not on filedocumented in this encounter Additional Health Concerns Assessment Noted Time A fall risk assessment has been complete d for the patient 05/17/2022 1:15 PM EST A Body Mass Index follow-up plan has been documented for the patient 09/13/2023 12:00 PM EDT documented as of this encounter Care Teams Accounting Policy Consultant Relationship Specialty Start Date End Date Ellen Inman APRN [facility] [place] [address] PCP - General Family Medicine 09/13/23 Nan Madrid, [place] [address] Project Architect Mobile Health Vehicle Operator 09/13/23 09/13/23 documented as of this encounter
--- OUTSIDE RECORDS SUMMARY | 2024-10-08 07:38 | XMS_ITS | Encounter Summary ---
Author Organization Healthcare Address [address] [place] [address] Care Team Providers Care Contact Center Associate Name Role Phone StormEllen Annika ADAN Primary Care Provider [phone] Encounter Details Date Type Department Care Team (Latest Contact Info) Description 09/19/2024 Travel Social History Tobacco Use Types Packs/Day [...] How often do you attend chur or tenriism services? Never 09/13/2023 Do you belong to any clubs o r organizations such as caodaism groups, unions, fraternal or athletic groups, or [...] Recorded Patient Health Questionnaire-2 Score 0 01/04/2024 [facility] Occupat ional [facility] - Occupational Stress Questionnaire Answer Date Recorded [...] place to sleep or slept in a halfway (including now)? No 09/13/2023 Safety and Environment [...] Recorded In the past 12 months has [facility] electric, gas, oil, or water company [...] Description 10/11/2024 2:30 PM EDT Office Visit [facility] [address] [place] [address] Janiya Santoro [address] [place] [address] documented as of this encounter Visit Diagnoses Not on filedocumented in this encounter Additional Health Concerns Assessment Noted Time A fall risk assessment has been complete d for the patient 05/17/2022 1:15 PM EST A Body Mass Index follow-up plan has been documented for the patient 09/19/2024 10:55 AM EDT documented as of this encounter Care Teams Contact Center Associate Relationship Specialty Start Date End Date Ellen Inman APRN [address] [place] [id number] PCP - General Family Medicine 09/13/23 documented as of this encounter
--- NOTE | 2024-10-08 08:00 | CA_ITS ---
APPROVED REPORT EXAM: Comprehensive 2D, Doppler, and color-flow Echocardiogram Quill Cleaner: Tierra Gray RT(R) Ht: 6 ft 4 in Wt: 199lbs BSA: 2.21 BP: 121/75 mmHg Indications: chest pain, fatigue 2D Dimensions LA Volume 21.80 mL LA Volume Index 9.86 mL/m2 (M/F) 16-34 EF AP4 66.30 % GL Strain -14.7 % M-Mode Dimensions RVDd 2.65 cm (0.9-2.6) LA Diam 3.17 cm (1.9-4.0) LVDd 5.53 cm (3.5-5.7) LVDs 4.26 cm (3.5-5.7) IVSd 0.64 cm (0.6-1.1) PWd 0.80 cm (0.6-1.1) EF (Teich) 45.50% FS 23.00% EDV (Teich) 149.30 mL ESV (Teich) 81.30 mL LV Diastology E Decel Time 217 (160-240 msec) E/A Ratio 1.4 Aortic Valve MAURICIO Index 1.64 cm2/m2 AoV Peak Sudeep. 125.0 (50-130 cm/s) AI PHT 670.00 ms AO Peak GR. 6.30 mmHg AO Mean GR. 3.10 (<5 mmHg) AO VTI 26.4 (18-25 cm) MAURICIO (VTI) 3.70 (2.5-4.5 cm2) Mitral Valve MV E Max Sudeep. 85.0 (40-130 cm/s) MV A Velocity 59.0 (40-130 cm/s) E/A Ratio 1.44 MV PHT 63.0 ms Tricuspid Valve TR P. Velocity 223.00 cm/s Left Ventricle The left ventricle is normal size. The left ventricular systolic function is normal. The left ventricular ejection fraction is within the normal range. There is normal left ventricular wall thickness. There is normal LV segmental wall motion. The left ventricular diastolic function is normal. LVEF is 55%. Right Ventricle The right ventricle is normal size. The right ventricular systolic function is normal. Atria The left atrium size is normal. The right atrium size is normal. There is no Doppler evidence of interatrial shunt. Aortic Valve The aortic valve opens well. There is no aortic valvular stenosis. Mild to moderate aortic regurgitation. Mitral Valve The mitral valve is normal in structure. No evidence of mitral valve stenosis. There is no mitral valve regurgitation noted. Tricuspid Valve Tricuspid valve is grossly normal in structure and function. Mild tricuspid regurgitation. RVSP is 20-25 mmHg. Pulmonic Valve The pulmonary valve is normal in structure. Trace pulmonic regurgitation. Great Vessels The aortic root is normal in size. IVC is normal in size and collapses >50% with inspiration. Pericardium There is no pericardial effusion. Other Information Study Quality: Fair Conclusion Normal biventricular systolic function. Mild to moderate AI. Mild TR. Electronically signed by : Tammy Villalba MD 10/13/2024 10:59:36
== END 2024-10-08 23:59 | disposition home or self-care (01) ==
LOC: RT 07:37
PROVIDERS: Visit Provider Nurse Practitioner Family
DX: I08.2 Rheumatic disorders of both aortic and tricuspid valves (principal)
CPT/HCPCS: 93306

== ENCOUNTER 2024-10-30 10:04 | Outpatient (CLI) | payer MEDICARE, MEDICAID, SELFPAY ==
--- OUTSIDE RECORDS SUMMARY | 2024-09-19 09:45 | XMS_ITS | Encounter Summary ---
Author Organization Healthcare Address [address] [place] [address] Care Team Providers Care Starch And Prosize Mixer Name Role Phone StormEllen Annika ADAN Primary Care Provider [phone] Encounter Details Date Type Department Care Team (Late st Contact Info) Description 09/19/2024 9:45 AM EDT Office Visit [facility] [address] [place] [address] Janiya Santoro [address] [place] [address] Caries (Primary Dx) Social History Tobacco Use [...] often do you attend chur ch or amish services? Never 09/13/2023 Do you belong to any clubs o r organizations such as restoration groups, unions, fraternal or athletic groups, or [...] Recorded Patient Health Questionnaire-2 Score 0 01/04/2024 [facility] of Occupat ional Health - Occupational Stress [...] place to sleep or slept in a long term (including now)? No 09/13/2023 Safety and Environment [...] the past 12 months has th e [employer], gas, oil, or water company threatened to [...] 09/19/2024 9:45 AM EDT Adult Dentistry - [facility] Subjective: 43 y.o. male presents to [...] No Stress: No Stress Concern Present (09/13/2023) [place] [facility]ational [facility] - Occupational Stress Questionnaire [...] More than three times a week Attends Shinto Services: Never Active Member of Clubs or [...] (1 carpule) were delivered via [employer]. Old baptist removed and caries were excavated. Varnish applied, [...] Solofuse) 2000 units kit INFUSE 4000 UNITS ([id number]) SLOW IV PUSH DIRECTED BY [employer] FOR [...] Bilateral ELBOW SURGERY N/A Elbow Surgery from [facility] [4] Allergies Allergen Reactions Aspirin Unknown - [...] Care Team (Late st Contact Info) Description 10/30/2024 1:00 PM EDT Office Visit [facility] Adult Dentistry [address] [id number] Janiya Santoro [address] [place] [address] 11/04/2024 10:30 AM EDT Office Visit [facility] Adult Dentistry [address] [place], [place] [phone] Janiya Santoro [address] [place] [address] documented as of this encounter [...] documented as of this encounter Care Teams Starch And Prosize Mixer Relationship Specialty Start Date End Date Ellen Inman APRN [address] [place] [id number] PCP - General Family Medicine 09/13/23 documented as of this encounter
--- OUTSIDE RECORDS SUMMARY | 2024-10-11 14:30 | XMS_ITS | Encounter Summary ---
Author Organization Healthcare Address [address] [place] [address] Care Team Providers Care Raisin Washer Name Role Phone StormEllen Annika ADAN Primary Care Provider [phone] Encounter Details Date Type Department Care Team (Late st Contact Info) Description 10/11/2024 2:30 PM EDT [facility] Visit [facility] [address] [place] [address] Janiya Santoro [address] [place] [address] Edentulism (Primary Dx) Social History Tobacco Use Types [...] often do you attend chur ch or restorationism services? Never 09/13/2023 Do you belong to any clubs o r organizations such as confucianist groups, unions, fraternal or athletic groups, or [...] Recorded Patient Health Questionnaire-2 Score 0 01/04/2024 [facility] of Occupat ional Health - Occupational [...] place to sleep or slept in a fci (including now)? No 09/13/2023 Safety and Environment [...] as of this encounter Miscellaneous Notes * Progress Notes - Janiya Santoro - 10/11/2024 2:30 PM EDT Adult Dentistry - [facility] Subjective: 44 y.o. male presents to clinic for scanning to construct his lower metallic partial denture. Objective: Visit Vitals Smoking Status Never Medical and dental hx [...] No Stress: No Stress Concern Present (09/13/2023) [facility] [place] [facility]ational [facility] - Occupational Stress Questionnaire [...] More than three times a week Attends Christian Services: Never Active Member of Clubs or Organizations: No Attends Club or Organization Meetings: Never Marital Status: Never Financial Resource Strain: Low Risk (09/13/2023) Overall Financial Resource Strain (CARDIA) Difficulty of Paying Living Expenses: Not hard at all Allergies[4] Assessment: Partial mandibular edentulism P/E: Patients presents today for fabrication of metallic partial lower dentures. Scans taken of mandibular and mandibular arches and bite was recorded , shade was selected and verified by the patient A3 and submitted to [facility] for fabrication of try-in. Lab order submitted. RTC : In 2 weeks for try in. [1] Current Outpatient Medications on File Prior to Visit Medication Sig Dispense Refill meloxicam (Mobic) 15 MG tablet Take 1 tablet by mouth daily. 30 tablet 3 antihemophilic factor rAHF-PAF (Xyntha Solofuse) 2000 units kit INFUSE 4000 UNITS ([id number]) SLOW IV PUSH DIRECTED BY [facility] FOR [facility] BLEEDING/ PER PROCEDURALLY WHILE [...] Bilateral ELBOW SURGERY N/A Elbow Surgery from [employer] [4] Allergies Allergen Reactions Aspirin Unknown - [...] do not know rxn details Cosigned by Vale Aj DMD at 10/21/2024 6:19 PM EDT Associated attestation - Vale Aj DMD - 10/21/2024 6:19 PM EDT I have reviewed the resident's dental note. I was physically present in the clinic and immediately available throughout the entire procedure to provide direct supervision. documented in this encounter Plan of Treatment Upcoming Encounters Date Type Department Care Team (Late st Contact Info) Description 10/30/2024 1:00 PM EDT Office Visit [facility] [address] [place], [place] [id number] Janiya Santoro [address] [place] [address] 11/04/2024 10:30 AM EDT Office Visit [facility] [address] [address] Janiya Santoro [address] [place] [address] Scheduled Orders Name Type Priority Associated Diagnoses Orde r Schedule DENTAL LAB Dental Routine Edentulism Ordered: 10/11/2024 documented as of this encounter Procedures Procedure Name Priority Date/Time Associated Diagnosis Comments Nando MANDIBULAR PARTIAL DENTURE CAST METAL IN PROCESS Routine 10/11/2024 2:30 PM EDT Edentulism documented in this encounter Visit Diagnoses Diagnosis Edentulism- Primary documented in this encounter Additional Health Concerns Assessment Noted Time A fall risk assessment has been complete d for the patient 05/17/2022 1:15 PM EST A Body Mass Index follow-up plan has been documented for the patient 10/11/2024 2:25 PM EDT documented as of this encounter Care Teams Raisin Washer Relationship Specialty Start Date End Date Ellen Inman, RETAIL ZONE SPECIALIST [address] [place] [address] PCP - General Family Medicine 09/13/23 documented as of this encounter
--- OUTSIDE RECORDS SUMMARY | 2024-10-30 10:10 | XMS_ITS | Encounter Summary ---
Author Organization Healthcare Address [address] [place] [address] Care Team Providers Care Fertilizer Applicator Name Role Phone StormEllen LOOC Primary Care Provider [phone] Encounter Details Date Type Department Care Team (Latest Contact Info) Description 10/11/2024 Travel Social History Tobacco Use Types Packs/Day [...] How often do you attend chur or voodoo services? Never 09/13/2023 Do you belong to any clubs o r organizations such as zoroastrianism groups, unions, fraternal or athletic groups, or [...] Recorded Patient Health Questionnaire-2 Score 0 01/04/2024 [facility] of Occupat ional [facility] - Occupational Stress Questionnaire Answer Date [...] Recorded In the past 12 months has [facility] electric, gas, oil, or water company [...] Description 10/30/2024 1:00 PM EDT Office Visit [facility] [address] [address] Janiya Santoro [address] [place] [address] 11/04/2024 10:30 AM EDT Office Visit [facility] [address] [place] [address] Yvan, Amr H [address] [place] [address] documented as of this encounter Visit Diagnoses Not on filedocumented in this encounter Additional Health Concerns Assessment Noted Time A fall risk assessment has been complete d for the patient 05/17/2022 1:15 PM EST A Body Mass Index follow-up plan has been documented for the patient 10/11/2024 2:25 PM EDT documented as of this encounter Care Teams Fertilizer Applicator Relationship Specialty Start Date End Date Ellen Inman, LOCO [address] [place] [address] PCP - General Family Medicine 09/13/23 documented as of this encounter
--- OUTSIDE RECORDS SUMMARY | 2024-10-30 10:10 | XMS_ITS | Encounter Summary ---
Author Organization [facility] Address [address] [place] [address] Care Team Providers Care Truck Mechanic Name Role Phone Ellen Inman MASSAGE THERAPIST Primary Care Provider [phone] Reason for Visit * Reason Onset Date Comments [facility] Same Day Appt/Overbook Request 10/28/2024 URGENT SAME DAY Encounter Details Date Type Department Care Team (Late st Contact Info) Description 10/28/2024 Telephone [facility] [address] [place] [address] Ellen Inman, MASSAGE THERAPIST [address] [place] [address] [facility] Same Day Appt/Overbook Request (URGENT SAME DAY) Social History Tobacco Use Types Packs/Day Years [...] often do you attend chur ch or latter-day services? Never 09/13/2023 Do you belong to any clubs o r organizations such as baptism groups, unions, fraternal or athletic groups, or [...] Recorded Patient Health Questionnaire-2 Score 0 01/04/2024 [facility] of Occupat ional Health - Occupational Stress [...] encounter Miscellaneous Notes * Telephone Encounter - Vale Walker - 10/28/2024 8:55 AM EDT Spoke with the pt and he advised that he has been having left face, arm and leg numbness since . He stated it has been off an on since then. I advised that the pt needs to be seen at the ER [facility] and pt verbally agreed. * Telephone Encounter - Henrietta Christian W - 10/28/2024 8:23 AM EDT Same Day Appt/Overbook Request Reason for Call: URGENT SAME DAY-No answer Triage or BAT. Pt is having left arm and left leg weakness. Pt is requesting to be seen [facility]. Please advise. Best contact number: [phone] (home) Optimal time of day to reach caller: ANYTIME Additional comments/information from caller: None Note: Please do not reply to this message. Follow-up communication and further actions as a result of this message need to be communicated with the patient directly, if the patient is not active onMyChart. If the patient is active on MyChart, they will receive notification of the communication/outcome via MyChart. documented in this encounter Plan of Treatment Upcoming Encounters Date Type Department Care Team (Late st Contact Info) Description 10/30/2024 1:00 PM EDT Office Visit [facility] [address] [address] Janiya Santoro [address] [place] [address] 11/04/2024 10:30 AM EDT Office Visit [facility] [address] [address] Janiya Santoro [address] [place] [address] documented as of this encounter Visit Diagnoses Not on filedocumented in this encounter Additional Health Concerns Assessment Noted Time A fall risk assessment has been complete d for the patient 05/17/2022 1:15 PM EST A Body Mass Index follow-up plan has been documented for the patient 10/11/2024 2:25 PM EDT documented as of this encounter Care Teams Truck Mechanic Relationship Specialty Start Date End Date Ellen Inman APRN [facility] [place] [address] PCP - General Family Medicine 09/13/23 documented as of this encounter
--- OUTSIDE RECORDS SUMMARY | 2024-10-30 10:10 | XMS_ITS | Encounter Summary ---
Author Organization Healthcare Address [address] [place] [address] Care Team Providers Care Lamp Shade Sewer Name Role Phone Ellen Inman LOCO Primary Care Provider [phone] Nan MadridW Unavailable Unavailable Encounter Details Date Type Department Care Team (Late st Contact Info) Description 09/13/2023 Patient Outreach [facility] [address] [place] [address] Delvin Orantes Social History Tobacco Use Types [...] often do you attend chur ch or faith services? Never 09/13/2023 Do you belong to any clubs o r organizations such as episcopal groups, unions, fraternal or athletic groups, or [...] Recorded Patient Health Questionnaire-2 Score 0 01/04/2024 [facility] of Occupat ional Health - [...] place to sleep or slept in a fpc (including now)? No 09/13/2023 Safety and Environment [...] Author No Risk Indicated 09/13/2023 10:05 AM GILDAT Vale Ramirez * If you checked off any problems on this questionnaire so far, Question Answer Date of Assessment Author How difficult have these problems made it for you to do your work, take care of things at home, or get along with other people? Not difficult at all 09/13/2023 10:05 AM Vale Mims * Question Answer Date of Assessment Author 1. Wish to be (Past 1 Month) No 024 10:05 AM Vale Mims 2. Non-Specific Active Suici cuco Thoughts (Past 1 Month) No 09/13/2023 10:05 AM Nereyda Mims 6. Suicidal Behavior (Lifetime) No 10:05 AM Vale Mims documented as of this encounter Plan of Treatment Upcoming Encounters Date Type Department Care Team (Late st Contact Info) Description 10/30/2024 1:00 PM EDT Office Visit [facility] [address] [place] [address] Janiya Santoro [address] [place] [address] 11/04/2024 10:30 AM EDT Office Visit [facility] [address] [place] [address] Janiya Santoro [address] [place] [address] documented as of this encounter Visit Diagnoses Not on filedocumented in this encounter Additional Health Concerns Assessment Noted Time A fall risk assessment has been complete d for the patient 05/17/2022 1:15 PM EST A Body Mass Index follow-up plan has been documented for the patient 09/13/2023 12:00 PM EDT documented as of this encounter Care Teams Lamp Shade Sewer Relationship Specialty Start Date End Date Ellen Inman APRN [address] [place] [address] PCP - General Family Medicine 09/13/23 Nan Madrid, [place] [address] Hedge Fund Accountant Real Estate Firm Manager 09/13/23 09/13/23 documented as of this encounter
--- OUTSIDE RECORDS SUMMARY | 2024-10-30 10:10 | XMS_ITS | Encounter Summary ---
Author Organization Healthcare Address [address] [place] [address] Care Team Providers Care Divisional Merchandising Manager Name Role Phone StormEllen Annika ADAN Primary Care Provider [phone] Encounter Details Date Type Department Care Team (Late st Contact Info) Description 09/11/2024 Refill [facility] Pediatric Hemophilia [address]; [address] [place] [address] Nisha Hendrickson APRN, DNP [address] [place] [address] Severe hemophilia A (CMS/HCC) (Primary Dx); Arthropathy [...] often do you attend chur ch or pentecostal services? Never 09/13/2023 Do you belong to any clubs o r organizations such as jewish groups, unions, fraternal or athletic groups, or [...] Recorded Patient Health Questionnaire-2 Score 0 01/04/2024 [facility] - Occupational Stress Questionnaire Answer Date [...] Description 10/30/2024 1:00 PM EDT Office Visit [facility] Adult [facility] [address] [place] [address] Janiya Santoro [address] [place] [address] 11/04/2024 10:30 AM EDT Office Visit [facility] [address] [place] [address] Janiya Santoro H [address] [place] [address] documented as of this encounter Visit Diagnoses [...] documented as of this encounter Care Teams Divisional Merchandising Manager Relationship Specialty Start Date End Date Ellen Inman APRN [address] [place] [id number] PCP - General Family Medicine 09/13/23 documented as of this encounter
--- OUTSIDE RECORDS SUMMARY | 2024-10-30 10:10 | XMS_ITS | Clinical Summary ---
Author Organization [facility] Address [address] [place] [address] Care Team Providers Care Black Leather Buffer Name Role Phone Ellen Inman LOCO Primary Care Provider Allergies Active Allergy Reactions Criticality Noted Date [...] tablets at night as needed 4 Active Emicizumab-kxwh (Hemlibra) 150 MG/ML injectionIndicat ions:Hemophilia A ([facility]) Inject 1.8 mL under the skin every 14 (fourteen) days. For secondary prophylaxis. Please include all supplies. 2 each 11 5 Active antihemophilic factor rAHF-PAF (Xyntha Solofuse) 2000 units kitIndications:H emophilia A ([facility]) INFUSE 4000 UNITS (5978-8502) SLOW IV PUSH DIRECTED BY [facility] FOR BREAKTHROUGH BLEEDING/ PER PROCEDURALLY WHILE ON HEMLIBRA PROPHYLAXIS. 3 each 3 5 Active meloxicam (Mobic) 15 MG tabletIndication s:Severe hemophilia A ([facility]),Arthro rnona in hemophilia ([facility]) Take 1 tablet by mouth daily. 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 Elbow pain 12/22/2016 Foot pain 06/04/2014 Arthritis 05/30/2014 Ankle arthritis 04/29/2014 Encounters Date Type Department Care Team Description 10/28/2024 Telephone [facility] [address] [place] [address] Ellen Inman, FORESTRY HUNTER [facility] Same Day Appt/Overbook Request (URGENT SAME DAY) 10/11/2024 2:30 PM EDT Office Visit [facility] [address] [place] [address] Janiya Santoro Edentulism (Primary Dx) 10/11/2024 Travel 09/19/2024 9:45 AM EDT Office Visit [facility] [address] [place] [address] Janiya Santoro Caries (Primary Dx) 09/19/2024 Travel 09/11/2024 Refill [facility] Pediatric Hemophilia [address]; [address] [place] [address] Nisha Hendrickson APRN, DNP Severe hemophilia A ([facility]) (Primary Dx); 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 Never 09/13/2023 Do you belong to any clubs o r organizations such as advent groups, unions, fraternal or athletic groups, or [...] Recorded Patient Health Questionnaire-2 Score 0 01/04/2024 [facility] - Occupational Stress Questionnaire Answer Date [...] place to sleep or slept in a [place] health care facility (including now)? No 09/13/2023 Safety and Environment [...] the past 12 months has th e [employer], gas, oil, or water company threatened to [...] Description 10/30/2024 1:00 PM EDT Office Visit [facility] [address] [place] [address] Yvan, Amr H [address] [place] [address] 11/04/2024 10:30 AM EDT Office Visit [facility] [address] [place] [address] Yvan, Amr H [address] [place] [address] Health Maintenance Due Date Last Done Comments [facility]-Medicare Annual Wellness (AWV) 1980 [facility]-Infant/Child/Adol SDOH Screenings 1980 IPT-NPJZO-50 Vaccine (#1) 1985 [facility]-Varicella Vaccines (1 of 2 - 13+ 2-dose series) 1993 [facility]- SDOH Screenings 1998 [facility]-Adult SDOH Screenings 1998 [facility]-Hepatitis B Vaccines (1 of 3 - 19+ 3-dose series) 10/10/1999 HPV Vaccines (1 - 3-dose SCDM series) 10/10/2007 [facility]-DTaP,Tdap,and Td Vaccines (3 - Td or [...] PROCESS Routine 10/11/2024 2:30 PM EDT Edentulism 21 DO AMALGAM - 2 SURFACES, PRIMARY [...] 2 Antibody/Antigen Screen (09/13/2023 10:49 AM EDT) Pathologist [facility] HIV 1 & 2 Antibody/Antigen Screen Non Reactive Non Reactive 09/13/2023 1:46 PM EDT [facility] Comment:Screening for HIV 1 & 2 antibodies, and P24 antigen is NONREACTIVE. No confirmatory testing is required. Blood Venous blood specimen / Unknown Venipuncture / Unknown 09/13/2023 10:49 AM EDT 09/13/2023 10:49 AM EDT Ellen Keno FORESTRY HUNTER LAB BLOOD ORDERABLES Final Resu lt Performing Organization Address City/[facility]/ZIP Co de Phone Number [facility] [address] [place] [address] * (ABNORMAL) Hepatitis C Antibody w/Reflex to HCV Quant PCR (09/13/2023 10:49 AM EDT) Pathologist [facility] Hepatitis C Antibody Positive( A) Negative 09/13/2023 1:50 PM EDT [facility] Comment:This specimen is benito ng sent for confirmation by RT-PCR. Blood Venous blood specimen / Unknown Venipuncture / Unknown 09/13/2023 10:49 AM EDT 09/13/2023 10:49 AM EDT Result [facility] Ellen Keno FORESTRY HUNTER LAB BLOOD ORDERABLES Final Resu lt Performing Organization Address City/[facility] Co de Phone Number [facility] [address] [place] [address] from Last 3 Months or Most Recently Relevant to Health [place] [address] [place] [address] MEDICARE [place] [address] MEDICAID [employer] [facility] Care Teams Black Leather Buffer Relationship Specialty Start Date End Date Ellen Inman APRN [address] [place] [phone] PCP - General Family Medicine 09/13/23
--- OUTSIDE RECORDS SUMMARY | 2024-10-30 10:10 | XMS_ITS | Encounter Summary ---
Author Organization Healthcare Address [address] [place] [address] Care Team Providers Care Range Master Name Role Phone StormEllen LOCO Primary Care Provider [phone] Encounter Details Date Type Department Care Team [...] How often do you attend chur or latter-day services? Never 09/13/2023 Do you belong to any clubs o r organizations such as gnosticist groups, unions, fraternal or athletic groups, or [...] Recorded Patient Health Questionnaire-2 Score 0 01/04/2024 [facility] - Occupational Stress Questionnaire Answer Date [...] No 09/13/2023 Housing Stability Vital Sign Answer Jasemet e Recorded In the last 12 months, [...] place to sleep or slept in a group home (including now)? No 09/13/2023 Safety and [...] Recorded In the past 12 months has [facility] electric, gas, oil, or water company [...] Description 10/30/2024 1:00 PM EDT Office Visit [facility] [address] [address] Janiya Santoro [address] [place] [address] 11/04/2024 10:30 AM EDT Office Visit [facility] [address] [place] [address] Yvan, Amr H [address] [place] [address] documented as of this encounter Visit Diagnoses Not on filedocumented in this encounter Additional Health Concerns Assessment Noted Time A fall risk assessment has been complete d for the patient 05/17/2022 1:15 PM EST A Body Mass Index follow-up plan has been documented for the patient 09/19/2024 10:55 AM EDT documented as of this encounter Care Teams Range Master Relationship Specialty Start Date End Date Ellen Inman, LOCO [address] [place] [address] PCP - General Family Medicine 09/13/23 documented as of this encounter
--- OUTSIDE RECORDS SUMMARY | 2024-10-30 10:10 | XMS_ITS | Encounter Summary ---
Author Organization Healthcare Address [address] [place] [address] Care Team Providers Care Hot Dog Vender Name Role Phone Pcp, No Primary Care Provider Unavailabl e Kike Baez MD Primary Care Provider [phone] Ellen Inman APRN Primary Care Provider [phone] Nan Madrid MOBILITY ARCHITECT Unavailable Unavailable Encounter Details Date Type Department Care Team (Late st Contact Info) Description 04/05/2019 [facility] [address] [place] [address] Dental, Provider, DDS [facility] [place] [address] Social History Tobacco Use Types Packs/Day Years [...] Description 10/30/2024 1:00 PM EDT Office Visit [facility] [address] [place] [address] [place] [address] Yvan, Amr H [address] [place] [address] 11/04/2024 10:30 AM EDT Office Visit [facility] [address] [place] [address] [place] [address] Yvan, Amr H [address] [place] [address] documented as of this encounter Visit Diagnoses Not on filedocumented in this encounter Care Teams Hot Dog Vender Relationship Specialty Start Date End Date Pcp, Hilary [address] [place] [address] PCP - General Family Medicine 04/20/21 06/07/21 Kike Baez MD [address] [place] [address] PCP - General 06/08/21 09/12/23 Ellen Inman APRN [address] [place] [address] PCP - General Family Medicine 09/13/23 Nan Madrid, [place] [address] Slot Operations Manager Folding Rules Printing Machine Operator 09/13/23 09/13/23 documented as of this encounter
[2024-10-30 10:30] VITALS: BP 139/76; PULSE 56; RESP 18; O2SAT 100
[2024-10-30] MEDS: ANTIHEMOPHILIC FACTOR RECOMBINANT 1 EACH IV (10:30)
== END 2024-10-30 10:35 | disposition home or self-care (01) ==
LOC: INF 10:06
PROVIDERS: Visit Provider Nurse Practitioner Family
DX: D69.6 Thrombocytopenia, unspecified (principal)
CPT/HCPCS: 96374